=== PATIENT | female | born 1985 | race Caucasian/White ===

== ENCOUNTER 2017-08-29 07:56 | Observation (INO) | payer MEDICAID, SELFPAY | END 2017-08-31 09:05 | disposition home or self-care (01) | PROVIDERS: Admitting Provider Obstetrics & Gynecology; Family Provider Internal Medicine Adolescent Medicine; Visit Provider Obstetrics & Gynecology | DX: R10.2 Pelvic and perineal pain (principal); N83.11 Corpus luteum cyst of right ovary | CPT/HCPCS: 58720; 44950; 36415; 81001; 85014; 85018; 87086; 96372; 96375; G0378; J0131; J1956; J2405 ==

== ENCOUNTER 2017-12-28 20:42 | Emergency (ER) | payer MEDICAID, SELFPAY ==
[2017-12-28 20:49] VITALS: BP 128/85; PULSE 91; RESP 20; TEMP 37.1; O2SAT 99; BMI 26.7
--- NOTE | 2017-12-28 20:56 | HMH.EDUTC ---
[facility] [place] Clinical Impression: Strep throat Disposition: Home, Self-Care Condition on Discharge: Good Instructions: Strep Throat, DI for Strep Throat Additional Instructions: * Monitor Temp. Tylenol and/or Ibuprofen as needed. ER if fever is no less than 101 despite alternating Tylenol and Ibuprofen * Encourage fluids, water, Gatorade, powerade, pedialyte if /toddler/or child * Warm salt water gargles for throat irritation *Warm fluids *Sore throat lozenges *Sleep elevated *humidifier or vaporizer Lots of rest Increase fluids, water, Gatorade, powerade *Bromfed may cause drowsiness. Know how it effect you or your child. Before driving, caring for small children or sending your child to school *Your throat swab was sent to lab for culture. Those results area typically sent to your primary care physician. Be sure to follow up in 2-3 days if no improvement so they can review those results and treat if necessary If you dont have primary care I recommend you get one, but in the mean time you will have to return to a walk in clinic Follow up IMMEDIATELY for new or worsening of symptoms OR no noticeable improvement over the next 48-72 hours. 911 immediately for any life threatening symptoms such as chest pain or difficulty breathing Prescriptions: Brompheniramine/Pseudoephed/Dm [Bromfed DM Cough Syrup 5mL] 10 ml PO Q4HP PRN #350 ml PRN Reason: Cough Azithromycin [Z-Terry 250mg Tab] 250 mg PO UD DOSE PK #6 tab predniSONE [Prednisone 5mg Tab Dose-Pack] 5 mg PO UD DOSE PK #21 pack Time of Disposition: 21:09 Medical Decision Making - Medical Records Medical records reviewed: Yes: I reviewed the patient's medical records. - Gage Inquiry Pt receiving controlled substance: No Gage was queried for this patient: No Vital Signs: 12/28/17 20:49 Temperature 98.8 F Temperature Source Temporal Artery Scan Pulse Rate [Right Brachial] 91 H Respiratory Rate 20 Blood Pressure [Right Arm] 128/85 Blood Pressure Mean [Right Arm] 99 Blood Pressure Source [Right Arm] Automatic Cuff Blood Pressure Position [Right Arm] Sitting 02 Sat by Pulse Oximetry 99 Oxygen Delivery Method Room Air - Lab Data Lab results reviewed: Yes: I reviewed the patient's lab results. [facility] [place] HPI - General Stated complaint: Ear Pain Time Seen by Provider: 12/28/17 20:50 Mode of Arrival: Family Vehicle Source of Information: Patient Limitations: No Limitations Description of Symptoms (Recalled from Triage Doc. by RN): C/O BILATERAL EAR PAIN X 2 DAYS HEENT Symptoms (Recalled from RN notes): Yes Resp Symptoms (Recalled from RN notes): No Skin Symptoms (Recalled from RN notes): No MS Symptoms (Recalled from RN notes): No Functional Status (Recalled from RN notes): N/A - History of Present Illness Provider Complaint: Patient states that she has been having pain in both ears for 2 days States that pain has continued to get worse States that it hurts when she swallows and feels like she is having pressure in her ears and in her sinuses States that earlier today she felt a little dizzy when she stood up quickly and felt like the room was moving - Related Data Home Medications Medication Instructions Recorded Confirmed albuterol sulfate HFA 90 2 puff INHALATION Q6H 10/09/17 mcg/actuation aerosol inhaler Previous Rx's Medication Instructions Recorded estradiol 2 mg tablet 2 mg PO DAILY #30 tab 11/11/17 Azithromycin [Z-Terry 250mg Tab] 250 mg PO UD DOSE PK #6 tab 12/28/17 Brompheniramine/Pseudoephed/Dm 10 ml PO Q4HP PRN #350 ml 12/28/17 [Bromfed DM Cough Syrup 5mL] predniSONE [Prednisone 5mg Tab 5 mg PO UD DOSE PK #21 pack 12/28/17 Dose-Pack] Allergies Allergy/AdvReac Type Severity Reaction Status Date / Time aspirin [ASPIRIN] Allergy Unknown Verified 12/28/17 21:07 codeine [CODEINE] Allergy Unknown Verified 12/28/17 21:07 orange juice Allergy Unknown DIARRHEA Unverified 10/09/17 14:30 [From ORANGE JUICE (FOOD/
--- NOTE | 2017-12-28 21:03 | ED_ITS ---
[facility] – [place] Disposition Clinical Impression: Strep throat Disposition: Home, Self-Care Condition on Discharge: Good Instructions: Strep Throat, DI for Strep Throat Additional Instructions: * Monitor Temp. Tylenol and/or Ibuprofen as needed. ER if fever is no less than 101 despite alternating Tylenol and Ibuprofen * Encourage fluids, water, Gatorade, powerade, pedialyte if infant/toddler/or child * Warm salt water gargles for throat irritation *Warm fluids *Sore throat lozenges *Sleep elevated *humidifier or vaporizer Lots of rest Increase fluids, water, Gatorade, powerade *Bromfed may cause drowsiness. Know how it effect you or your child. Before driving, caring for small children or sending your child to school *Your throat swab was sent to lab for culture. Those results area typically sent to your primary care physician. Be sure to follow up in 2-3 days if no improvement so they can review those results and treat if necessary If you don? t have primary care I recommend you get one, but in the mean time you will have to return to a walk in clinic Follow up IMMEDIATELY for new or worsening of symptoms OR no noticeable improvement over the next 48-72 hours. 911 immediately for any life threatening symptoms such as chest pain or difficulty breathing Prescriptions: Brompheniramine/Pseudoephed/Dm [Bromfed DM Cough Syrup 5mL] 10 ml PO Q4HP PRN # 350 ml PRN Reason: Cough Azithromycin [Z-Terry 250mg Tab] 250 mg PO UD DOSE PK #6 tab predniSONE [Prednisone 5mg Tab Dose-Pack] 5 mg PO UD DOSE PK #21 pack Time of Disposition: 21:09 Medical Decision Making - Medical Records Medical records reviewed: Yes: I reviewed the patient's medical records. - Gage Inquiry Pt receiving controlled substance: No Gage was queried for this patient: No Vital Signs: 12/28/17 20:49 Temperature 98.8 F Temperature Source Temporal Artery Scan Pulse Rate [Right Brachial] 91 H Respiratory Rate 20 Blood Pressure [Right Arm] 128/85 Blood Pressure Mean [Right Arm] 99 Blood Pressure Source [Right Arm] Automatic Cuff Blood Pressure Position [Right Arm] Sitting 02 Sat by Pulse Oximetry 99 Oxygen Delivery Method Room Air - Lab Data Lab results reviewed: Yes: I reviewed the patient's lab results. [facility] [place] HPI - General Stated complaint: Ear Pain Time Seen by Provider: 12/28/17 20:50 Mode of Arrival: Family Vehicle Source of Information: Patient Limitations: No Limitations Description of Symptoms (Recalled from Triage Doc. by RN): C/O BILATERAL EAR PAIN X 2 DAYS HEENT Symptoms (Recalled from RN notes): Yes Resp Symptoms (Recalled from RN notes): No Skin Symptoms (Recalled from RN notes): No MS Symptoms (Recalled from RN notes): No Functional Status (Recalled from RN notes): N/A - History of Present Illness Provider Complaint: Patient states that she has been having pain in both ears for 2 days States that pain has continued to get worse States that it hurts when she swallows and feels like she is having pressure in her ears and in her sinuses States that earlier today she felt a little dizzy when she stood up quickly and felt like the room was moving - Related Data Home Medications Medication Instructions Recorded Confirmed albuterol sulfate HFA 90 2 puff INHALATION Q6H 10/09/17 mcg/actuation aerosol inhaler Previous Rx's Medication Instructions Recorded estradiol 2 mg tablet 2 mg PO DAILY #30 tab 0
[2017-12-28 21:13] LABS: UTC Strep Screen (Rapid) Positive (Negative)
[2017-12-28 21:18] VITALS: BP 128/85; PULSE 91; RESP 20; TEMP 37.1; O2SAT 99
== END 2017-12-28 21:19 | disposition home or self-care (01) ==
PROVIDERS: Emergency Provider Nurse Practitioner; Family Provider Internal Medicine Adolescent Medicine
DX: J02.0 Streptococcal pharyngitis (principal); J45.909 Unspecified asthma, uncomplicated; F17.210 Nicotine dependence, cigarettes, uncomplicated; Z79.82 Long term (current) use of aspirin; Z88.0 Allergy status to penicillin; Z88.6 Allergy status to analgesic agent
CPT/HCPCS: 87880; 99201

== ENCOUNTER 2023-12-17 10:37 | Emergency (ER) | payer OTHER, SELFPAY ==
[2023-12-17 10:45] VITALS: BP 118/82; PULSE 82; RESP 18; TEMP 36.8; O2SAT 95; BMI 36.1
--- NOTE | 2023-12-17 10:59 | ED_ITS ---
Discharge Plan Disposition Patient Disposition: Home, Self-Care Condition: Good Prescriptions Prescriptions: New clarithromycin 500 mg tablet 500 mg PO BID 7 Days Qty: 14 0RF No Action albuterol sulfate [Ventolin HFA] 90 mcg/actuation HFA aerosol inhaler 2 puff INHALATION Q6H Referrals Follow up/Referrals: Provider,Referral, [Primary Care Provider] - See instructions Activity Restrictions/Add. Instructions Additional Instructions/Restrictions: *Monitor Temp, Over the counter Motrin or Tylenol as directed/as needed Tylenol every 4 hours and Motrin every 6 hours (as long as your family doctor has told you that you can take it) for fever or pain. and straight to ER if unable to lower temp less than 101.0 after medication given *Warm salt water gargles may help to soothe the throat *Throat Lozenges? *Warm fluids like tea with honey may help to soothe the throat? *Sleep elevated *Humidifier/Vaporizer Your throat swab was sent for culture. Those results are typically sent to your primary care. Be sure to follow up in 2-3 days with your family doctor/primary care physician if no improvement so they can review those result and treat if necessary. If you don?t have a primary care doctor, I recommend you get one but in the mean time, you will have to return to a walk in clinic Follow up IMMEDIATELY for new or worsening symptoms or no Noticeable improvement over the next 48-72 hours. 911 for difficulty breathing or swallowing Clinical Impressions Clinical Impression: Pharyngitis Instructions Patient Instructions: Sore Throat, Middle Ear Infection Discharge ED Provider: Candie Wu [facility] General Stated complaint: sore throat, ear pain Mode of Arrival: Ambulatory Source of Information: Patient Limitations: No Limitations Time Seen by Provider: 12/17/23 10:59 Description of Symptoms (Recalled from Triage Doc. by RN): Pt's symptoms are sore throat, and bilateral ear pain. HEENT Symptoms (Recalled from RN notes): Yes Resp Symptoms (Recalled from RN notes): No Skin Symptoms (Recalled from RN notes): No MS Symptoms (Recalled from RN notes): No Functional Status (Recalled from RN notes): n/a History of Present Illness Provider Complaint: Patient states that she has been having sore throat and bilateral ear pain States her son has strep throat and she thinks she may have it now too Related Data Home Medications Medication Instructions Recorded Confirmed albuterol sulfate 90 mcg/actuation 2 puff inhalation Q6H 10/09/17 aerosol inhaler (Ventolin HFA) Previous Rx's Medication Instructions Recorded estradiol 2 mg tablet 2 mg PO DAILY #30 tabs 11/11/17 clarithromycin 500 mg tablet 500 mg PO BID 7 days #14 tabs 12/17/23 Allergies Allergy/AdvReac Type Severity Reaction Status Date / Time aspirin [ASPIRIN] Allergy Unknown Verified 12/17/23 10:58 codeine [CODEINE] Allergy Unknown Verified 12/17/23 10:58 orange juice Allergy Unknown DIARRHEA Verified 12/17/23 10:58 [From ORANGE JUICE (FOOD/DRUG)] Penicillins [PENICILLINS] Allergy Unknown SOB/CHEST Verified 12/17/23 10:58 TIGHTNESS propoxyphene [PROPOXYPHENE] Allergy Unknown Verified 12/17/23 10:58 venom-honey bee Allergy Unknown Verified 12/17/23 10:58 [BEE VENOM (HONEY BEE)] acetaminophen [From Percocet] Allergy Verified 12/17/23 10:58 oxycodone [From Percocet] Allergy Verified 12/17/23 10:58 ibuprofen [IBUPROFEN] AdvReac Unknown UPSET Verified 12/17/23 10:58 STOMACH promethazine [PROMETHAZINE] AdvReac Unknown MAKES HER Verified 12/17/23 10:58 THROW UP From RED DYE (FOOD/DRUG) Allergy Severe S-SWELLS-OR Uncoded 10/09/17 14:30 AL/THROAT GREEN JELLO Allergy Intermediate Uncoded 10/09/17 14:30 From ORANGE JUICE (FOOD/DRUG) Allergy Unknown DIARRHEA Uncoded 10/09/17 14:30 Worker's Comp Is this a Worker's Comp case?: No [facility] Disclaimer: The information contained in this section may have been updated after the patient was seen, as this information can be updated by other users. Social History Smoking Status: Current every day smoker tobacco type: cigarettes alcohol intake: never substance use type: denies use current occupational status: unemployed Travel in the last 8 weeks: None ROS Obtained: Yes All systems reviewed & no additional complaints except as documented and Yes Systems reviewed as appropriate & no additional complaints except as documented ENT Ears, Nose, Mouth, and Throat: Reports system reviewed and no additional complaints, except as documented, Reports as per HPI, Reports otalgia and Repo rts sore throat Cardiovascular Cardiovascular: Reports system reviewed and no additional complaints, except as documented and Reports as per HPI Respiratory Respiratory: Reports system reviewed and no additional complaints, except as documented and Reports as per HPI Gastrointestinal Gastrointestingal: Reports system reviewed and no additional complaints, except as documented and as per HPI Physical Exam General General appearance: alert and in no apparent distress ENT ENT exam: Present mucous membranes moist Expanded ENT Exam TM/Canal exam: Left TM: erythema and loss of landmarks Throat exam: Present tonsillar erythema Respiratory Respiratory exam: Present normal lung sounds bilaterally; Absent respiratory distress or wheezes Cardiovascular Cardiovascular exam: Present regular rate, normal rhythm and normal heart sounds Neurological Exam Neurological exam: Present alert, oriented X3 and normal gait Medical Decision Making Gage Inquiry Pt receiving controlled substance: No Gage was queried for this patient: No Vital Signs: 12/17/23 10:45 Temperature 98.3 F Temperature Source Oral Pulse Rate [Right Radial] 82 Respiratory Rate 18 Blood Pressure [Right Arm] 118/82 Blood Pressure Mean [Right Arm] 94 Blood Pressure Source [Right Arm] Automatic Cuff Blood Pressure Position [Right Arm] Sitting 02 Sat by Pulse Oximetry 95 Oxygen Delivery Method Room Air Lab Data Lab results reviewed: Yes I reviewed the patient's lab results. Medical Decision Narrative: Patient states that she has alot of allergies but has taken azithromycin in the past without complications or reactions Patient medication discussed with pharmacy will do clarithromycin due to allergy to red dye
[2023-12-17 11:14] LABS: UTC Strep Screen (Rapid) Negative (Negative)
[2023-12-17 11:26] VITALS: BP 118/82; PULSE 82; RESP 18; TEMP 36.8; O2SAT 95
== END 2023-12-17 11:26 | disposition home or self-care (01) ==
PROVIDERS: Emergency Provider Nurse Practitioner
DX: J02.9 Acute pharyngitis, unspecified (principal); H92.03 Otalgia, bilateral; F17.210 Nicotine dependence, cigarettes, uncomplicated; Z20.818 Contact with and (suspected) exposure to other bacterial communicable diseases
CPT/HCPCS: 87880; 99204; 99212; G0463

== ENCOUNTER 2024-01-02 11:46 | Emergency (ER) | payer OTHER, SELFPAY ==
[2024-01-02] VITALS (7 sets, daily range): BP systolic 121–152; BP diastolic 74–97; PULSE 82–108; RESP 17–18; TEMP 36.7–36.8; O2SAT 97–99; BMI 36.1
--- NOTE | 2024-01-02 12:05 | CT_ITS ---
FINAL REPORT CLINICAL HISTORY: severe LLQ pain and guarding COMPARISON: None FINDINGS: CT OF THE ABDOMEN AND PELVIS WITH CONTRAST Axial CT images of the abdomen and pelvis were obtained after the administration of IV contrast. Coronal reformatted images were also obtained and reviewed.This study was performed with techniques to keep radiation doses as low as reasonably achievable (ALARA). Individualized dose reduction techniques using automated exposure control or adjustment of mA and/or kV according to the patient''s size were employed. Abdomen: There is mild bibasilar atelectasis. The heart is normal in size. There is a less than 1 cm probable hepatic cyst. Post cholecystectomy. The spleen is unremarkable. No adrenal mass is present. The pancreas has an unremarkable appearance. The kidneys are normal, without evidence of mass or hydronephrosis. The aorta is normal in caliber. There is no free fluid or adenopathy. No mass or abnormal fluid collection is seen. Pelvis: The appendix is not seen. There is a large amount of retained stool in the rectum with distention up to 7.3 cm transverse worrisome for constipation/fecal impaction. There is mild wall thickening of the descending colon. Mild colitis is not excluded. The urinary bladder is unremarkable. There are postoperative changes from hysterectomy. There is no evidence of mass or adenopathy. There is no evidence of bowel obstruction. IMPRESSION: Findings worrisome for constipation/fecal impaction. Possible mild colitis. Reviewed, Interpreted and Dictated by Abdifatah Sewell III, MD Transcribed by Willow Pearson Authenticated and [facility]
--- NOTE | 2024-01-02 12:17 | HMH.EDGENADL ---
Discharge Plan Disposition Patient Disposition: Home, Self-Care Prescriptions Prescriptions: New epinephrine 0.3 mg/0.3 mL auto-injector 0.3 mg IM Q10M PRN (Reason: anaphylaxis) Qty: 2 0RF Rx Instructions: for 2 doses prednisone 50 mg tablet 50 mg PO DAILY 4 Days Qty: 4 0RF No Action albuterol sulfate [Ventolin HFA] 90 mcg/actuation HFA aerosol inhaler 2 puff INHALATION Q6H azithromycin [Zithromax] 250 mg tablet 250 mg PO UD DOSE PK Qty: 6 0RF Rx Instructions: Take two (2) tablets today, then one (1) tablet days #2 thru #5 Referrals Follow up/Referrals: Provider,Referral, [Primary Care Provider] - See instructions Activity Restrictions/Add. Instructions Additional Instructions/Restrictions: At this time it was felt you are safe to be discharged home. If new or worsening symptoms please do not hesitate to return the emergency department. If symptoms persist please follow-up with your family doctor as you are able for your constipation. Please take your medications as prescribed. Clinical Impressions Clinical Impression: Constipation, Abdominal pain, Adverse effect of contrast media, Angioedema Discharge ED Provider: Alphonse Kebede General Adult HPI <Mendel Villasenor MD - Last Filed: 01/02/24 15:15> General Chief complaint: PAIN Stated complaint: constipatated, abd pain Time Seen by Provider: 01/02/24 11:53 Mode of Arrival: Ambulatory Source of Information: Patient Limitations: No Limitations Description of Symptoms (Recalled from ER Triage Doc. by RN): Patient states she has been constipated, last bowel movement 4 days ago. She has tried miralax and xlax with no relief. Patient states she has stomach cramps across lower belly. Denies other symptoms History of Present Illness HPI narrative: 38-year-old female history of section x 2, chronic presenting with abdominal pain. Patient states that she started having abdominal pain this this morning, / after being constipated the last couple of days. Has not had a bowel movement in about 4 days. States last bowel movement she had was normal for her, which is hard and formed. Having difficulty urinating and says that it hurts when she tries to urinate, feels full. No blood in her stool or urine. No flank tenderness. Pain is left lower quadrant, suprapubic and does not radiate. Moderate to severe in intensity. Made worse with application of pressure. No fevers or chills, abnormal vaginal discharge or bleeding, or any other concerns. Please note that above description of symptoms, in this electronic medical record under categorization of recalled from ER triage doctor by RN are reflective of an initial nursing assessment, however, is not reflective of my full history and physical exam that was personally taken and clarified. Consequentially, this preceding description of symptoms, which may include the patient's categorized chief complaint in the EMR, do not reflect my personal clinical impression, and the ultimate description of history of present illness and patient stated complaints should be deferred to this section of the note. Unless stated otherwise or congruent with this section of the note, additional signs, symptoms, or incongruence should be interpreted as inaccurate with my clinical impression. Related Data Home Medications Medication Instructions Recorded Confirmed albuterol sulfate 90 mcg/actuation 2 puff inhalation Q6H 10/09/17 aerosol inhaler (Ventolin HFA) Previous Rx's Medication Instructions Recorded estradiol 2 mg tablet 2 mg PO DAILY #30 tabs 11/11/17 azithromycin 250 mg tablet 250 mg PO UD DOSE PK #6 tabs 12/18/23 (Zithromax) epinephrine 0.3 mg/0.3 mL 0.3 mg (0.3 mL) IM Q10M PRN 01/02/24 injection, auto-injector anaphylaxis #2 ea prednisone 50 mg tablet 50 mg PO DAILY 4 days #4 tabs 01/02/24 Allergies Allergy/AdvReac Type Severity Reaction Status Date / Time aspirin [ASPIRIN] Allergy Unknown Verified 12/17/23 10:58 codeine [CODEINE] Allergy Unknown Verified 12/17/23 10:58 orange juice Allergy Unknown DIARRHEA Verified 12/17/23 10:58 [From ORANGE JUICE (FOOD/DRUG)] Penicillins [PENICILLINS] Allergy Unknown SOB/CHEST Verified 12/17/23 10:58 TIGHTNESS propoxyphene [PROPOXYPHENE] Allergy Unknown Verified 12/17/23 10:58 venom-honey bee Allergy Unknown Verified 12/17/23 10:58 [BEE VENOM (HONEY BEE)] acetaminophen [From Percocet] Allergy Verified 12/17/23 10:58 oxycodone [From Percocet] Allergy Verified 12/17/23 10:58 ibuprofen [IBUPROFEN] AdvReac Unknown UPSET Verified 12/17/23 10:58 STOMACH promethazine [PROMETHAZINE] AdvReac Unknown MAKES HER Verified 12/17/23 10:58 THROW UP From RED DYE (FOOD/DRUG) Allergy Severe S-SWELLS-OR Uncoded 10/09/17 14:30 AL/THROAT GREEN JELLO Allergy Intermediate Uncoded 10/09/17 14:30 From ORANGE JUICE (FOOD/DRUG) Allergy Unknown DIARRHEA Uncoded 10/09/17 14:30 PFSH <Mendel Villasenor MD - Last Filed: 01/02/24 15:15> [facility] Disclaimer: The information contained in this section may have been updated after the patient was seen, as this information can be updated by other users. Social History (Updated 12/17/23 @ 11:22 by Candie Wu APRN) Smoking Status: Former smoker tobacco type: cigarettes alcohol intake: never substance use type: denies use current occupational status: unemployed Travel in the last 8 weeks: None <Mendel Villasenor MD - Last Filed: 01/02/24 15:15> ROS Obtained: Yes All systems reviewed & no additional complaints except as documented Physical Exam <Mendel Villasenor MD - Last Filed: 01/02/24 15:15> General General appearance: alert and in no apparent distress Head Head exam: atraumatic and normocephalic Eye Eye exam: Present normal appearance, PERRL and EOMI ENT ENT exam: Present mucous membranes moist Neck Neck exam: Present normal inspection, full ROM and trachea midline Respiratory Respiratory exam: Absent respiratory distress, wheezes, stridor, accessory muscle use or prolonged expiratory phase Cardiovascular Cardiovascular exam: Present normal rhythm Abdominal Exam Abdominal exam: Present soft and tenderness; Absent distention, guarding, rebound or rigidity Abdominal tenderness: Present LLQ and suprapubic Extremities Exam Extremities exam: Absent edema Neurological Exam Neurological exam: Present alert, oriented X3, CN II-XII intact and normal gait; Absent motor sensory deficit Skin Skin exam: Present warm and dry; Absent diaphoresis or erythema Medical Decision Making <Mendel Villasenor MD - Last Filed: 01/02/24 15:15> Medical Records Medical records reviewed: Yes I reviewed the patient's medical records. Gage Inquiry Pt receiving controlled substance: No Gage was queried for this patient: No Vital Signs: 04/12/24 11:47 01/02/24 12:15 01/02/24 12:30 Temperature 98.1 F Temperature Source Oral Pulse Rate 90 95 H Pulse Rate [Right] 99 H Respiratory Rate 18 Blood Pressure 121/87 129/82 Blood Pressure [Right Arm] 152/83 H Blood Pressure Mean [Right Arm] 106 Blood Pressure Source [Right Arm] Automatic Cuff 02 Sat by Pulse Oximetry 98 97 97 Oxygen Delivery Method Room Air 01/02/24 13:05 01/02/24 13:31 01/02/24 15:19 Temperature Temperature Source Pulse Rate 87 108 H 96 H Pulse Rate [Right] Respiratory Rate 18 Blood Pressure 143/74 H 130/84 130/97 H Blood Pressure [Right Arm] Blood Pressure Mean [Right Arm] Blood Pressure Source [Right Arm] 02 Sat by Pulse Oximetry 97 99 98 Oxygen Delivery Method Room Air Lab Data Lab Results 01/02/24 12:11: WBC 8.8, RBC 4.67, Hgb 13.9, Hct 42.3, MCV 90.4, MCH 29.7, MCHC 32.8, RDW 13.2, Plt Count 426 H, MPV 7.2 L, Neut % (Auto) 76.4, Lymph % (Auto) 18.3, [place] % (Auto) 4.0, Eos % (Auto) 0.7, Baso % (Auto) 0.6, Neut # (Auto) 6.8, Lymph # (Auto) 1.6, [place] # (Auto) 0.4, Eos # (Auto) 0.1, Baso # (Auto) 0.1, Sodium 138, Potassium 4.0, Chloride 106, Carbon Dioxide 26, Anion Gap 10.0, BUN 12, Creatinine 0.70, Estimated Creat Clear 168, Estimated GFR 93, Est GFR ( Amer) 113, Glucose 128 H, Lactate 1.5, Calcium 9.6, Total Bilirubin 0.7, AST 28, ALT 22, Alkaline Phosphatase 123, Total Protein 7.6, Albumin 4.2, Globulin 3.4 H, Albumin/Globulin Ratio 1.2, HCG, Quant < 2 01/02/24 12:22: Urine Color Yellow, Urine Appearance Clear, Urine pH 6.5, Ur Specific [place] 1.015, Urine Protein Negative, Urine Glucose (UA) Negative, Urine Ketones Negative, Urine Blood Negative, Urine Nitrate Negative, Urine Bilirubin Negative, Urine Urobilinogen 0.2, Ur Leukocyte Esterase Negative, Urine RBC None, Urine WBC None, Ur Squamous Epith Cells 3-5, Urine Bacteria Trace 01/02/24 12:11 01/02/24 12:11 Orders (Tests/Meds): ED MEDICATIONS Discontinued Medications Generic Name Dose Route Start Last Admin Trade Name Holgerq PRN Reason Stop Dose Admin Acetaminophen 1,000 mg 01/02/24 12:04 01/02/24 12:20 Acetaminophen 1,000mg/100ml Vial IV 01/02/24 12:05 1,000 mg ONCE ONE Administration Diphenhydramine HCl 50 mg 01/02/24 13:23 01/02/24 13:24 Diphenhydramine 50mg/Ml Vial IV 01/02/24 13:24 50 mg ONCE ONE Administration Epinephrine HCl 0.3 mg 01/02/24 15:14 01/02/24 15:28 Epinephrine 1 Mg/Ml Ampul SQ 01/02/24 15:15 0.3 mg ONCE ONE Administration Iopamidol 75 ml 01/02/24 13:19 01/02/24 13:22 Iopamidol-370 (76%);100ml Bottle IV 01/02/24 13:20 75 ml ONCE ONE Administration Ketorolac Tromethamine 15 mg 01/02/24 12:04 01/02/24 12:21 Ketorolac 30mg/Ml Vial IV 01/02/24 12:05 15 mg ONCE ONE Administration Magnesium Citrate 10 oz 01/02/24 11:53 01/02/24 12:18 Magnesium Citrate 10oz Bottle PO 01/02/24 11:54 Not Given ONCE ONE Magnesium Citrate 10 oz 01/02/24 13:41 01/02/24 13:52 Magnesium Citrate 10oz Bottle PO 01/02/24 13:42 10 oz ONCE ONE Administration Methylprednisolone Sodium Succinate 125 mg 01/02/24 15:16 01/02/24 15:28 Methylprednisolone Sod Succ 125mg Vial IV 01/02/24 15:17 125 mg ONCE ONE Administration Mineral Oil 133 ml 01/02/24 11:53 01/02/24 12:18 Mineral Oil Enema 133ml RC 01/02/24 11:54 Not Given ONCE ONE Mineral Oil 133 ml 01/02/24 13:40 01/02/24 13:51 Mineral Oil Enema 133ml RC 01/02/24 13:41 133 ml ONCE ONE Administration Sodium Chloride 10 ml 01/02/24 13:19 01/02/24 13:21 Sodium Chloride 0.9% 10ml Syr (Rad Only) IV 01/02/24 13:20 10 ml ONCE ONE Administration ORDERS Category Date Time Status CT abdomen pelvis w con Stat Cat Scan 01/02/24 12:05 Completed CBC w/Auto Diff [Complete Blood Count Auto Diff] Stat Lab 01/02/24 12:11 Completed CMP [Comprehensive Metabolic Panel] Stat Lab 01/02/24 12:11 Completed HCG,Quantitative Stat Lab 01/02/24 12:11 Completed Lactic Acid Stat Lab 01/02/24 12:11 Completed UA [Urinalysis and Microscopic] Stat Lab 01/02/24 12:22 Completed Medical Decision Narrative: 38-year-old female history of section x 2, chronic presenting with abdominal pain. Patient states that she started having abdominal pain this this morning, 01/01 after being constipated the last couple of days. Has not had a bowel movement in about 4 days. States last bowel movement she had was normal for her, which is hard and formed. Having difficulty urinating and says that it hurts when she tries to urinate, feels full. No blood in her stool or urine. No flank tenderness. Pain is left lower quadrant, suprapubic and does not radiate. Moderate to severe in intensity. Made worse with application of pressure. No fevers or chills, abnormal vaginal discharge or bleeding, or any other concerns. History obtained with patient. On arrival, patient hemodynamically stable, mildly hypertensive, nontachycardic. Abdomen is soft, but moderately tender in left lower quadrant suprapubic with involuntary guarding. No flank tenderness. No overlying skin changes. Patient is tearful. Differential includes PUD, gastritis, enteritis, gastroenteritis, pancreatitis, SBO, colitis, diverticulitis, nephrolithiasis, UTI, , cholecystitis, choledocholithiasis, appendicitis, hepatitis, torsion, aortic pathology, mesenteric ischemia among others Patient was given Toradol, acetaminophen IV for symptomatic management and correction of underlying abnormalities. Workup independently interpreted and significant for nonactionable CBC or chemistry. negative, urinalysis without concern for UTI. CT abdomen pelvis with severe constipation. With rectal stool ball. See radiology read for full review of final results. Patient was brought initial enema, minimal bowel movement. Also given magnesium citrate. Patient was given another enema. Patient began having rash on her face and itching, she was given 50 mg IV Benadryl. Patient shortly thereafter had large-volume bowel movement and improvement in symptoms. On reevaluation just before going to discharge, patient states that she is having difficulty swallowing. Patient does have periorbital urticaria. She was given Solu-Medrol 125 mg, 0.3 mg IM epinephrine. Prior to reevaluation, care handed off to oncoming physician. <Alphonse Kebede MD - Last Filed: 01/02/24 18:05> Vital Signs: 01/02/24 11:47 01/02/24 12:15 01/02/24 12:30 Temperature 98.1 F Temperature Source Oral Pulse Rate 90 95 H Pulse Rate [Right] 99 H Respiratory Rate 18 Blood Pressure 121/87 129/82 Blood Pressure [Right Arm] 152/83 H Blood Pressure Mean [Right Arm] 106 Blood Pressure Source [Right Arm] Automatic Cuff 02 Sat by Pulse Oximetry 98 97 97 Oxygen Delivery Method Room Air 01/02/24 13:05 01/02/24 13:31 01/02/24 15:19 Temperature Temperature Source Pulse Rate 87 108 H 96 H Pulse Rate [Right] Respiratory Rate 18 Blood Pressure 143/74 H 130/84 130/97 H Blood Pressure [Right Arm] Blood Pressure Mean [Right Arm] Blood Pressure Source [Right Arm] 02 Sat by Pulse Oximetry 97 99 98 Oxygen Delivery Method Room Air Lab Data Lab Results 01/02/24 12:11: WBC 8.8, RBC 4.67, Hgb 13.9, Hct 42.3, MCV 90.4, MCH 29.7, MCHC 32.8, RDW 13.2, Plt Count 426 H, MPV 7.2 L, Neut % (Auto) 76.4, Lymph % (Auto) 18.3, [place] % (Auto) 4.0, Eos % (Auto) 0.7, Baso % (Auto) 0.6, Neut # (Auto) 6.8, Lymph # (Auto) 1.6, [place] # (Auto) 0.4, Eos # (Auto) 0.1, Baso # (Auto) 0.1, Sodium 138, Potassium 4.0, Chloride 106, Carbon Dioxide 26, Anion Gap 10.0, BUN 12, Creatinine 0.70, Estimated Creat Clear 168, Estimated GFR 93, Est GFR ( Amer) 113, Glucose 128 H, Lactate 1.5, Calcium 9.6, Total Bilirubin 0.7, AST 28, ALT 22, Alkaline Phosphatase 123, Total Protein 7.6, Albumin 4.2, Globulin 3.4 H, Albumin/Globulin Ratio 1.2, HCG, Quant < 2 01/02/24 12:22: Urine Color Yellow, Urine Appearance Clear, Urine pH 6.5, Ur Specific [place] 1.015, Urine Protein Negative, Urine Glucose (UA) Negative, Urine Ketones Negative, Urine Blood Negative, Urine Nitrate Negative, Urine Bilirubin Negative, Urine Urobilinogen 0.2, Ur Leukocyte Esterase Negative, Urine RBC None, Urine WBC None, Ur Squamous Epith Cells 3-5, Urine Bacteria Trace Orders (Tests/Meds): ED MEDICATIONS Discontinued Medications Generic Name Dose Route Start Last Admin Trade Name An PRN Reason Stop Dose Admin Acetaminophen 1,000 mg 01/02/24 12:04 01/02/24 12:20 Acetaminophen 1,000mg/100ml Vial IV 01/02/24 12:05 1,000 mg ONCE ONE Administration Diphenhydramine HCl 50 mg 01/02/24 13:23 01/02/24 13:24 Diphenhydramine 50mg/Ml Vial IV 01/02/24 13:24 50 mg ONCE ONE Administration Epinephrine HCl 0.3 mg 01/02/24 15:14 01/02/24 15:28 Epinephrine 1 Mg/Ml Ampul SQ 01/02/24 15:15 0.3 mg ONCE ONE Administration Iopamidol 75 ml 01/02/24 13:19 01/02/24 13:22 Iopamidol-370 (76%);100ml Bottle IV 01/02/24 13:20 75 ml ONCE ONE Administration Ketorolac Tromethamine 15 mg 01/02/24 12:04 01/02/24 12:21 Ketorolac 30mg/Ml Vial IV 01/02/24 12:05 15 mg ONCE ONE Administration Magnesium Citrate 10 oz 01/02/24 11:53 01/02/24 12:18 Magnesium Citrate 10oz Bottle PO 01/02/24 11:54 Not Given ONCE ONE Magnesium Citrate 10 oz 01/02/24 13:41 01/02/24 13:52 Magnesium Citrate 10oz Bottle PO 01/02/24 13:42 10 oz ONCE ONE Administration Methylprednisolone Sodium Succinate 125 mg 01/02/24 15:16 01/02/24 15:28 Methylprednisolone Sod Succ 125mg Vial IV 01/02/24 15:17 125 mg ONCE ONE Administration Mineral Oil 133 ml 01/02/24 11:53 01/02/24 12:18 Mineral Oil Enema 133ml RC 01/02/24 11:54 Not Given ONCE ONE Mineral Oil 133 ml 01/02/24 13:40 01/02/24 13:51 Mineral Oil Enema 133ml RC 01/02/24 13:41 133 ml ONCE ONE Administration Sodium Chloride 10 ml 01/02/24 13:19 01/02/24 13:21 Sodium Chloride 0.9% 10ml Syr (Rad Only) IV 01/02/24 13:20 10 ml ONCE ONE Administration ORDERS Category Date Time Status CT abdomen pelvis w con Stat Cat Scan 01/02/24 12:05 Completed CBC w/Auto Diff [Complete Blood Count Auto Diff] Stat Lab 01/02/24 12:11 Completed CMP [Comprehensive Metabolic Panel] Stat Lab 01/02/24 12:11 Completed HCG,Quantitative Stat Lab 01/02/24 12:11 Completed Lactic Acid Stat Lab 01/02/24 12:11 Completed UA [Urinalysis and Microscopic] Stat Lab 01/02/24 12:22 Completed Medical Decision Narrative: 38-year-old female history of section x 2, chronic presenting with abdominal pain. Patient states that she started having abdominal pain this this morning, 01/01 after being constipated the last couple of days. Has not had a bowel movement in about 4 days. States last bowel movement she had was normal for her, which is hard and formed. Having difficulty urinating and says that it hurts when she tries to urinate, feels full. No blood in her stool or urine. No flank tenderness. Pain is left lower quadrant, suprapubic and does not radiate. Moderate to severe in intensity. Made worse with application of pressure. No fevers or chills, abnormal vaginal discharge or bleeding, or any other concerns. History obtained with patient. On arrival, patient hemodynamically stable, mildly hypertensive, nontachycardic. Abdomen is soft, but moderately tender in left lower quadrant suprapubic with involuntary guarding. No flank tenderness. No overlying skin changes. Patient is tearful. Differential includes PUD, gastritis, enteritis, gastroenteritis, pancreatitis, SBO, colitis, diverticulitis, nephrolithiasis, UTI, , cholecystitis, choledocholithiasis, appendicitis, hepatitis, torsion, aortic pathology, mesenteric ischemia among others Patient was given Toradol, acetaminophen IV for symptomatic management and correction of underlying abnormalities. Workup independently interpreted and significant for nonactionable CBC or chemistry. negative, urinalysis without concern for UTI. CT abdomen pelvis with severe constipation. With rectal stool ball. See radiology read for full review of final results. Patient was brought initial enema, minimal bowel movement. Also given magnesium citrate. Patient was given another enema. Patient began having rash on her face and itching, she was given 50 mg IV Benadryl. Patient shortly thereafter had large-volume bowel movement and improvement in symptoms. On reevaluation just before going to discharge, patient states that she is having difficulty swallowing. Patient does have periorbital urticaria. She was given Solu-Medrol 125 mg, 0.3 mg IM epinephrine. Prior to reevaluation, care handed off to oncoming physician. Alphonse Kebede: Upon assumption of care patient was hemodynamically stable, has angioedema status post contrast administration. Patient with multiple hours of observation in the emergency department and had resolving swelling the entire time of her stay. Given this patient is appropriate for discharge at this time and will will be discharged with a course of steroids, she will be discharged with an EpiPen given her bee allergy that she says she does not have an EpiPen for. Patient was given multiple return precautions and verbalized understanding. Critical Care <Mendel Villasenor MD - Last Filed: 01/02/24 15:15> Critical Care Time Critical Care Time: No
[2024-01-02] MEDS: ACETAMINOPHEN 1,000MG/100ML VIAL 1000 MG IV (12:20)
[2024-01-02] MEDS: KETOROLAC 30MG/ML VIAL 15 MG IV (12:21)
[2024-01-02 12:27] LABS: Basophils # 0.1 K/mm3 (0-0.2); Basophils % 0.6 % (0.1-2.0); Eosinophils # 0.1 K/mm3 (0.0-0.4); Eosinophils % 0.7 % (0.1-12.0); Hematocrit 42.3 % (37.0-47.0); Hemoglobin 13.9 g/dL (12.2-16.2); Lymphocytes # 1.6 K/mm3 (0.7-4.5); Lymphocytes % 18.3 % (10-50); Mean Corpuscular HGB Conc 32.8 g/dL (31.8-35.4); Mean Corpuscular Hemoglobin 29.7 pg (27.0-31.2); Mean Corpuscular Volume 90.4 fl (81-99); Mean Platelet Volume 7.2 fl (7.4-10.4); Monocytes # 0.4 K/mm3 (0.1-1.0); Neutrophils # 6.8 K/mm3 (1.8-7.8); Neutrophils % 76.4 % (37.0-80.0); Platelet Count 426 K/mm3 (142-424); Red Blood Count 4.67 M/mm3 (4.20-5.40); Red Cell Distribution Width 13.2 % (11.5-17.5); White Blood Count 8.8 K/mm3 (4.8-10.8)
[2024-01-02 12:36] LABS: Microscopic, Urine URINE MICROSCOPIC (MICROSCOPIC)
[2024-01-02 12:37] LABS: Chloride 106 mmol/L (98-107); Sodium 138 mmol/L (136-145)
[2024-01-02 12:38] LABS: Appearance,Urine CLEAR (Clear); Bilirubin,Urine Negative (Negative); Blood, Urine Negative (Negative); Color,Urine YELLOW (Yellow); Glucose,Urine (UA) Negative (Negative); Ketones,Urine Negative (Negative); Leukocyte Esterase,Urine Negative (Negative); Nitrate,Urine Negative (Negative); PH,Urine 6.5 (5.0-8.5); Protein,Urine Negative (Negative); Specific Gravity, Urine 1.015 (1.005-1.030); Urobilinogen,Urine 0.2 EU/dl (0.2)
[2024-01-02 12:39] LABS: Alanine Aminotransferase 22 U/L (12-78); Alkaline Phosphatase 123 U/L (38-126); Aspartate Amino Transferase 28 U/L (14-36); Bilirubin,Total 0.7 mg/dl (0.2-1.3); Blood Urea Nitrogen 12 mg/dl (7-17); Creatinine Clearance Estimated 168 mL/min (50-200); Estimated Glomerular Filt Rate 93 ml/min (>60); GFR (African American) 113 ML/MIN (>60)
[2024-01-02 12:40] LABS: Albumin Level 4.2 g/dl (3.5-5.0); Albumin/Globulin Ratio 1.2 (1.1-1.8); Calcium 9.6 mg/dl (8.4-10.2); Carbon Dioxide 26 mmol/L (22.0-30.0); Globulin 3.4 g/dL (1.3-3.2); Glucose 128 mg/dl (74-100); Total Protein,Serum 7.6 g/dl (6.3-8.2)
[2024-01-02 12:41] LABS: Lactic Acid 1.5 mmol/L (0.7-2.1)
[2024-01-02 12:50] LABS: Bacteria,Urine Trace /lpf
[2024-01-02 12:58] LABS: HCG,Quantitative < 2 mIU/ml (0-5.42)
--- NOTE | 2024-01-02 13:00 | PC.NURSE ---
assisted patient to Restroom at this time.
[2024-01-02] MEDS: SODIUM CHLORIDE 0.9% 10ML SYR (RAD ONLY) 10 ML IV (13:21)
[2024-01-02] MEDS: IOPAMIDOL-370 (76%);100ML BOTTLE 75 ML IV (13:22)
[2024-01-02] MEDS: diphenhydrAMINE 50MG/ML VIAL 50 MG IV (13:24)
[2024-01-02] MEDS: MINERAL OIL ENEMA 133ML 133 ML RC (13:51)
[2024-01-02] MEDS: MAGNESIUM CITRATE 10OZ BOTTLE 10 OZ PO (13:52)
--- NOTE | 2024-01-02 15:00 | PC.NURSE ---
Patients enema was successful patient reports relief at this time.
[2024-01-02] MEDS: METHYLPREDNISOLONE SOD SUCC 125MG VIAL 125 MG IV (15:28)
[2024-01-02] MEDS: EPINEPHrine 1 MG/ML AMPUL 0.299999999999999989 MG SQ (15:28)
--- NOTE | 2024-01-02 17:27 | PC.NURSE ---
Rounded on patient. No needs at this time.
== END 2024-01-02 18:12 | disposition home or self-care (01) ==
PROVIDERS: Emergency Medicine; Emergency Provider Emergency Medicine
DX: R10.32 Left lower quadrant pain (principal); K59.00 Constipation, unspecified; T50.8X5A Adverse effect of diagnostic agents, initial encounter; T78.3XXA Angioneurotic edema, initial encounter; Z87.891 Personal history of nicotine dependence
CPT/HCPCS: 74177; 80053; 81001; 83605; 84702; 85025; 96374; 96375; 99285; J0131; Q9967

== ENCOUNTER 2024-01-03 13:53 | Emergency (ER) | payer OTHER, SELFPAY ==
[2024-01-03 13:55] VITALS: BP 137/94; PULSE 93; RESP 18; TEMP 36.6; O2SAT 99; BMI 36.1
--- NOTE | 2024-01-03 14:18 | ECG_ITS ---
APPROVED REPORT Exam: Resting ECG HR:88 bpm ECG Measurements Heart Rate 88 AXES PA 153 P 59 QRSd 79 QRS 21 QT 350 T 40 QTc 395 Conclusion SINUS RHYTHM Electronically signed by : EMMA JACOBSON, 01/03/2024 15:28:19
--- NOTE | 2024-01-03 14:23 | ED_ITS ---
Discharge Plan Disposition Patient Disposition: Home, Self-Care Chief Complaint: Skin/Abscess/Foreign Body Prescriptions Prescriptions: No Action albuterol sulfate [Ventolin HFA] 90 mcg/actuation HFA aerosol inhaler 2 puff INHALATION Q6H epinephrine 0.3 mg/0.3 mL auto-injector 0.3 mg IM Q10M PRN (Reason: anaphylaxis) Qty: 2 0RF Rx Instructions: for 2 doses prednisone 50 mg tablet 50 mg PO DAILY 4 Days Qty: 4 0RF azithromycin [Zithromax] 250 mg tablet 250 mg PO UD DOSE PK Qty: 6 0RF Rx Instructions: Take two (2) tablets today, then one (1) tablet days #2 thru #5 Referrals Follow up/Referrals: Provider,Referral, MD [Primary Care Provider] - See instructions Clinical Impressions Clinical Impression: Facial burning Instructions Patient Instructions: DI for Skin Abscess Discharge ED Provider: Mendel Villasenor General Adult HPI General Chief complaint: Skin/Abscess/Foreign Body Stated complaint: diff. to breathe, rash on arm Time Seen by Provider: 01/03/24 13:56 Mode of Arrival: Ambulatory Source of Information: Patient Limitations: No Limitations Description of Symptoms (Recalled from ER Triage Doc. by RN): c/o small rash on bilateral ellbow area and chin around lip area, and soa that started this morning when she woke up. Her face feels hot. States the contrast that she had here yesterday has caused this reaction. History of Present Illness HPI narrative: 38-year-old female no relevant medical history presenting with multiple complaints. Patient was seen in the emergency department yesterday for abdominal pain, had abnormal reaction to contrast with periorbital urticaria. States she went home, felt better, today, she took allergy medication. States that she is feeling lightheaded, dizzy, feels that she has a rash on her arms. She also is most concerned because her face feels hot. No difficulty breathing, cough, chest pain, palpitations, nausea, vomiting, diarrhea, shortness of breath, or any other concerns. Please note that above description of symptoms, in this electronic medical record under categorization of recalled from ER triage doctor by RN are reflective of an initial nursing assessment, however, is not reflective of my full history and physical exam that was personally taken and clarified. Consequentially, this preceding description of symptoms, which may include the patient's categorized chief complaint in the EMR, do not reflect my personal clinical impression, and the ultimate description of history of present illness and patient stated complaints should be deferred to this section of the note. Unless stated otherwise or congruent with this section of the note, additional signs, symptoms, or incongruence should be interpreted as inaccurate with my clinical impression. Related Data Home Medications Medication Instructions Recorded Confirmed albuterol sulfate 90 mcg/actuation 2 puff inhalation Q6H 10/09/17 aerosol inhaler (Ventolin HFA) Previous Rx's Medication Instructions Recorded estradiol 2 mg tablet 2 mg PO DAILY #30 tabs 11/11/17 azithromycin 250 mg tablet 250 mg PO UD DOSE PK #6 tabs 12/18/23 (Zithromax) epinephrine 0.3 mg/0.3 mL 0.3 mg (0.3 mL) IM Q10M PRN 01/02/24 injection, auto-injector anaphylaxis #2 ea prednisone 50 mg tablet 50 mg PO DAILY 4 days #4 tabs 01/02/24 Allergies Allergy/AdvReac Type Severity Reaction Status Date / Time Iodinated Contrast Media Allergy Severe angioedema Verified 01/03/24 14:23 aspirin [ASPIRIN] Allergy Unknown Verified 12/17/23 10:58 codeine [CODEINE] Allergy Unknown Verified 12/17/23 10:58 orange juice Allergy Unknown DIARRHEA Verified 12/17/23 10:58 [From ORANGE JUICE (FOOD/DRUG)] Penicillins [PENICILLINS] Allergy Unknown SOB/CHEST Verified 12/17/23 10:58 TIGHTNESS propoxyphene [PROPOXYPHENE] Allergy Unknown Verified 12/17/23 10:58 venom-honey bee Allergy Unknown Verified 12/17/23 10:58 [BEE VENOM (HONEY BEE)] acetaminophen [From Percocet] Allergy Verified 12/17/23 10:58 oxycodone [From Percocet] Allergy Verified 12/17/23 10:58 ibuprofen [IBUPROFEN] AdvReac Unknown UPSET Verified 12/17/23 10:58 STOMACH promethazine [PROMETHAZINE] AdvReac Unknown MAKES HER Verified 12/17/23 10:58 THROW UP From RED DYE (FOOD/DRUG) Allergy Severe S-SWELLS-OR Uncoded 10/09/17 14:30 AL/THROAT GREEN JELLO Allergy Intermediate Uncoded 10/09/17 14:30 From ORANGE JUICE (FOOD/DRUG) Allergy Unknown DIARRHEA Uncoded 10/09/17 14:30 [facility] Disclaimer: The information contained in this section may have been updated after the patient was seen, as this information can be updated by other users. Social History (Updated 12/17/23 @ 11:22 by Candie Wu APRN) Smoking Status: Never smoker alcohol intake: never substance use type: denies use current occupational status: unemployed Travel in the last 8 weeks: None ROS Obtained: Yes All systems reviewed & no additional complaints except as documented Physical Exam General General appearance: alert and in no apparent distress Head Head exam: atraumatic and normocephalic Eye Eye exam: Present normal appearance, PERRL and EOMI ENT ENT exam: Present normal oropharynx, mucous membranes moist and other (No evidence of tonsillitis, exudate, pharyngeal erythema, uvular deviation, palatal swelling, trismus, dental abscess, angioedema, or other abnormal zelalem pharyngeal findings) Neck Neck exam: Present normal inspection, full ROM and trachea midline Respiratory Respiratory exam: Present normal lung sounds bilaterally; Absent respiratory distress, wheezes, stridor, accessory muscle use or prolonged expiratory phase Cardiovascular Cardiovascular exam: Present regular rate and normal rhythm Abdominal Exam Abdominal exam: Present soft; Absent distention, tenderness, guarding, rebound or rigidity Extremities Exam Extremities exam: Absent edema Neurological Exam Neurological exam: Present alert, oriented X3, CN II-XII intact and normal gait; Absent motor sensory deficit Skin Skin exam: Present warm and dry; Absent diaphoresis or erythema Medical Decision Making Medical Records Medical records reviewed: Yes I reviewed the patient's medical records. Gage Inquiry Pt receiving controlled substance: No Gage was queried for this patient: No Vital Signs: 01/03/24 13:55 Temperature 97.9 F Temperature Source Oral Pulse Rate [Left Radial] 93 H Respiratory Rate 18 Blood Pressure [Right Arm] 137/94 H Blood Pressure Mean [Right Arm] 108 Blood Pressure Source [Right Arm] Automatic Cuff Blood Pressure Position [Right Arm] Sitting 02 Sat by Pulse Oximetry 99 Oxygen Delivery Method Room Air Orders (Tests/Meds): ED MEDICATIONS Discontinued Medications Generic Name Dose Route Start Last Admin Trade Name Freq PRN Reason Stop Dose Admin Dexamethasone 10 mg 01/03/24 14:12 01/03/24 14:26 Dexamethasone 4mg Tablet PO 01/03/24 14:13 10 mg ONCE ONE Administration Ondansetron HCl 4 mg 01/03/24 14:12 01/03/24 14:26 Ondansetron 4mg Odt SL 01/03/24 14:13 4 mg ONCE ONE Administration Medical Decision Narrative: 38-year-old female no relevant medical history presenting with multiple complaints. Patient was seen in the emergency department yesterday for abdominal pain, had abnormal reaction to contrast with periorbital urticaria. States she went home, felt better, today, she took allergy medication. States that she is feeling lightheaded, dizzy, feels that she has a rash on her arms. She also is most concerned because her face feels hot. No difficulty breathing, cough, chest pain, palpitations, nausea, vomiting, diarrhea, shortness of breath, or any other concerns. History obtained with patient. On arrival, hemodynamically stable, alert, oriented, afebrile, normotensive, nontachycardic, saturating appropriately on room air. Lungs are clear to auscultation. No evidence of tonsillitis, exudate, pharyngeal erythema, uvular deviation, palatal swelling, trismus, dental abscess, angioedema, or other abnormal zelalem pharyngeal findings. No facial rash. Very well-appearing overall. EKG sinus rhythm 88 beats a minute no ST or T wave changes concerning for acute ischemia. No arrhythmia, intervals within normal limits. Patient given oral meds, reassurance was given. Because patient at baseline without signs or symptoms of clinical decompensation, deemed appropriate for discharge. Results were relayed to patient who voiced understanding and were agreeable to outpatient management and follow up. I discussed my clinical impression with patient and answered all questions. At this time, the evidence for any other entities in the differential is insufficient to warrant any further testing or ED observation. This was explained as well. Advisory was given that persistent or worsening symptoms require further evaluation. I confirmed the understanding of this discussion. Critical Care Critical Care Time Critical Care Time: No
[2024-01-03] MEDS: ONDANSETRON 4MG ODT 4 MG SL (14:26)
[2024-01-03] MEDS: DEXAMETHASONE 4MG TABLET 10 MG PO (14:26)
[2024-01-03 15:12] VITALS: BP 135/88; PULSE 86; RESP 16; TEMP 36.6; O2SAT 100
== END 2024-01-03 15:13 | disposition home or self-care (01) ==
PROVIDERS: Emergency Provider Emergency Medicine
DX: R20.8 Other disturbances of skin sensation (principal); R42 Dizziness and giddiness
CPT/HCPCS: 93005; 99283

== ENCOUNTER 2024-03-10 17:25 | Emergency (ER) | payer OTHER, SELFPAY ==
[2024-03-10 17:27] VITALS: BP 143/95; PULSE 103; RESP 18; TEMP 36.6; O2SAT 94; BMI 36.6
--- NOTE | 2024-03-10 17:30 | ED_ITS ---
<Statement entered by Justin Alcazar MD - 03/10/24 23:33> I was consulted by the JACKIE, and we discussed the complexity of the problems being addressed. I approved the treatment and management plan for this patient's care in the emergency department, thus performing a substantive portion of the medical decision making. Justin Alcazar MD, AURELIA, FACEP Discharge Plan Disposition Patient Disposition: Home, Self-Care Condition: Good Prescriptions Prescriptions: No Action albuterol sulfate [Ventolin HFA] 90 mcg/actuation HFA aerosol inhaler 2 puff INHALATION Q6H epinephrine 0.3 mg/0.3 mL auto-injector 0.3 mg IM Q10M PRN (Reason: anaphylaxis) Qty: 2 0RF Rx Instructions: for 2 doses prednisone 50 mg tablet 50 mg PO DAILY 4 Days Qty: 4 0RF azithromycin [Zithromax] 250 mg tablet 250 mg PO UD DOSE PK Qty: 6 0RF Rx Instructions: Take two (2) tablets today, then one (1) tablet days #2 thru #5 Referrals Follow up/Referrals: Provider,MD Juan [Primary Care Provider] - See instructions Moni Maya DPM [Staff Physician] - See instructions Activity Restrictions/Add. Instructions Additional Instructions/Restrictions: You can take Tylenol alternating with Motrin every 4 hours as needed for constitutional symptoms such as pain and swelling. I have referred you to podiatry for ongoing follow-up if you wish. Please call to make an appointment. Turn to ER for any worsening signs or symptoms. Clinical Impressions Clinical Impression: Contusion of foot Instructions Patient Instructions: DI for Contusion Discharge ED Provider: Justin Alcazar General Adult HPI General Chief complaint: Extremity Injury, Lower Stated complaint: left foot poss.break,AO 03-10-24 ten pound wt drop Time Seen by Provider: 03/10/24 17:30 History of Present Illness HPI narrative: Patient presents for evaluation after dropping a 10 pound weight plate on her left foot. Patient does have a history of multiple operations in the last 6 months on the same foot. Patient states that it hurts to walk hurts to move but denies any numbness or tingling. Patient states that hurts to bear weight. Related Data Home Medications Medication Instructions Recorded Confirmed albuterol sulfate 90 mcg/actuation 2 puff inhalation Q6H 10/09/17 aerosol inhaler (Ventolin HFA) Previous Rx's Medication Instructions Recorded estradiol 2 mg tablet 2 mg PO DAILY #30 tabs 11/11/17 azithromycin 250 mg tablet 250 mg PO UD DOSE PK #6 tabs 12/18/23 (Zithromax) epinephrine 0.3 mg/0.3 mL 0.3 mg (0.3 mL) IM Q10M PRN 01/02/24 injection, auto-injector anaphylaxis #2 ea prednisone 50 mg tablet 50 mg PO DAILY 4 days #4 tabs 01/02/24 Allergies Allergy/AdvReac Type Severity Reaction Status Date / Time Iodinated Contrast Media Allergy Severe angioedema Verified 01/03/24 14:23 aspirin [ASPIRIN] Allergy Unknown Verified 12/17/23 10:58 codeine [CODEINE] Allergy Unknown Verified 12/17/23 10:58 orange juice Allergy Unknown DIARRHEA Verified 12/17/23 10:58 [From ORANGE JUICE (FOOD/DRUG)] Penicillins [PENICILLINS] Allergy Unknown SOB/CHEST Verified 12/17/23 10:58 TIGHTNESS propoxyphene [PROPOXYPHENE] Allergy Unknown Verified 12/17/23 10:58 venom-honey bee Allergy Unknown Verified 12/17/23 10:58 [BEE VENOM (HONEY BEE)] acetaminophen [From Percocet] Allergy Verified 12/17/23 10:58 oxycodone [From Percocet] Allergy Verified 12/17/23 10:58 ibuprofen [IBUPROFEN] AdvReac Unknown UPSET Verified 12/17/23 10:58 STOMACH promethazine [PROMETHAZINE] AdvReac Unknown MAKES HER Verified 12/17/23 10:58 THROW UP From RED DYE (FOOD/DRUG) Allergy Severe S-SWELLS-OR Uncoded 10/09/17 14:30 AL/THROAT GREEN JELLO Allergy Intermediate Uncoded 10/09/17 14:30 From ORANGE JUICE (FOOD/DRUG) Allergy Unknown DIARRHEA Uncoded 10/09/17 14:30 [facility] Disclaimer: The information contained in this section may have been updated after the patient was seen, as this information can be updated by other users. Social History (Updated 12/17/23 @ 11:22 by Candie Wu APRN) Smoking Status: Former smoker tobacco type: cigarettes alcohol intake: never substance use type: denies use current occupational status: unemployed Travel in the last 8 weeks: None ROS Obtained: Yes Systems reviewed as appropriate & no additional complaints except as documented Physical Exam General General appearance: alert and in no apparent distress Respiratory Respiratory exam: Present normal lung sounds bilaterally Cardiovascular Cardiovascular exam: Present regular rate and normal rhythm Neurological Exam Neurological exam: Present alert and oriented X3 Other Other exam information: Left foot is exquisitely tender to palpation however so his ankle so is tib-fib however there is no palpable bony deformity and there is no visible trauma of any kind including contusions or abrasions. There is no asymmetry. Patient is neurovascular intact distally. Medical Decision Making Medical Records Medical records reviewed: Yes I reviewed the patient's medical records. Gage Inquiry Pt receiving controlled substance: No Vital Signs: 03/10/24 17:27 03/10/24 18:00 Temperature 98 F Temperature Source Oral Pulse Rate 91 H Pulse Rate [Right] 103 H Respiratory Rate 18 Blood Pressure 133/96 H Blood Pressure [Right Arm] 143/95 H Blood Pressure Mean [Right Arm] 111 02 Sat by Pulse Oximetry 94 L 97 Oxygen Delivery Method Room Air Room Air Orders (Tests/Meds): ED MEDICATIONS Discontinued Medications Generic Name Dose Route Start Last Admin Trade Name Freq PRN Reason Stop Dose Admin Ketorolac Tromethamine 60 mg 03/10/24 17:36 03/10/24 18:15 Ketorolac 60mg/2ml Vial IM 03/10/24 17:37 60 mg ONCE ONE Administration ORDERS Category Date Time Status Ankle XR - Left minimum 3 Views [XR ankle LT min 3V] Exams 03/10/24 17:34 Completed Stat Foot XR left minimum 3 views [XR foot LT min 3V] Stat Exams 03/10/24 17:34 Completed Tibia/fibula XR left 2 views [XR tibia fibula LT 2V] Exams 03/10/24 17:34 Completed Stat Medical Decision Narrative: In summary patient is a 38-year-old female who presents to the emergency department for evaluation of dropping weight on her foot. Patient is hemodynamically stable and afebrile on arrival. Physical exam shows pain on palpation in both the bridge of the foot the ankle and the tib-fib however there is no visible trauma of any kind including contusions abrasions tattoo emmy from the weight striking her foot and no bony deformity either visually or palpably. Patient is neurovascular intact distally. Differential diagnosis includes contusion versus fracture . Initial workup will be conducted with plain film x- rays. Initial interventions include Toradol Tylenol. Initial workup reviewed by me and her plain film x-rays show no acute fracture.. Upon repeat evaluation had acceptable improvement in her pain level.. Given this patient is appropriate for discharge. I offered her referral to Dr. Maya of podiatry. Critical Care Critical Care Time Critical Care Time: No
--- NOTE | 2024-03-10 17:34 | XR_ITS ---
PROCEDURE INFORMATION: Exam: XR Left Tibia and Fibula Exam date and time: 03/10/2024 5:32 PM Age: 38 years old Clinical indication: Injury or trauma; Other: Dropped weight on foot; Blunt trauma; Lower leg; Left; Additional info: Dropped a weight on her foot, previous surgery TECHNIQUE: Imaging protocol: Radiologic exam of the left tibia and fibula. Views: 2 views. COMPARISON: CR Ankle L 03/10/2024 5:31 PM FINDINGS: Bones/joints: See Soft tissues finding. Soft tissues: Mild soft tissue swelling without acute osseous abnormality. IMPRESSION: Mild soft tissue swelling without acute osseous abnormality.
--- NOTE | 2024-03-10 17:34 | XR_ITS ---
PROCEDURE INFORMATION: Exam: XR Left Ankle Exam date and time: 03/10/2024 5:31 PM Age: 38 years old Clinical indication: Injury or trauma; Other: Dropped weight on foot; Blunt trauma; Ankle; Left; Additional info: Dropped a weight on her foot, previous surgery TECHNIQUE: Imaging protocol: Radiologic exam of the left ankle. Views: 3 or more views. COMPARISON: CR Foot L 03/10/2024 5:29 PM FINDINGS: Bones/joints: See Soft tissues finding. Soft tissues: Mild soft tissue swelling without acute osseous abnormality. IMPRESSION: Mild soft tissue swelling without acute osseous abnormality.
--- NOTE | 2024-03-10 17:34 | XR_ITS ---
PROCEDURE INFORMATION: Exam: XR Left Foot Exam date and time: 03/10/2024 5:29 PM Age: 38 years old Clinical indication: Injury or trauma; Other: Dropped weight on foot; Blunt trauma; Left; Additional info: Dropped a weight on her foot, previous surgery TECHNIQUE: Imaging protocol: Radiologic exam of the left foot. Views: 3 or more views. COMPARISON: No relevant prior studies available. FINDINGS: Bones/joints: See Soft tissues finding. Soft tissues: Mild soft tissue swelling without acute osseous abnormality. IMPRESSION: Mild soft tissue swelling without acute osseous abnormality.
[2024-03-10 18:00] VITALS: BP 133/96; PULSE 91; O2SAT 97
[2024-03-10] MEDS: KETOROLAC 60MG/2ML VIAL 60 MG IM (18:15)
--- NOTE | 2024-03-10 18:39 | PC.NURSE ---
PT sitting up in wheelchair. No needs voiced. Family at [facility]
[2024-03-10 18:56] VITALS: BP 133/96; PULSE 91; RESP 16; TEMP 36.7; O2SAT 97
[2024-03-10 19:00] VITALS: BP 128/70; PULSE 80; RESP 20; TEMP 36.7; O2SAT 97
== END 2024-03-10 19:00 | disposition home or self-care (01) ==
PROVIDERS: Emergency Provider Student in an Organized Health Care Education/Training Program
DX: S90.32XA Contusion of left foot, initial encounter (principal); W20.8XXA Other cause of strike by thrown, projected or falling object, initial encounter
CPT/HCPCS: 73590; 73610; 73630; 96372; 99283; J1885

== ENCOUNTER 2024-03-24 21:30 | Outpatient (CLI) | payer OTHER, MEDICAID, SELFPAY ==
[2024-03-24 21:55] LABS: Basophils # 0.1 K/mm3 (0-0.2); Basophils % 0.9 % (0.1-2.0); Eosinophils # 0.3 K/mm3 (0.0-0.4); Eosinophils % 3.4 % (0.1-12.0); Hematocrit 38.4 % (37.0-47.0); Hemoglobin 12.6 g/dL (12.2-16.2); Lymphocytes # 1.9 K/mm3 (0.7-4.5); Lymphocytes % 20.6 % (10-50); Mean Corpuscular HGB Conc 32.8 g/dL (31.8-35.4); Mean Corpuscular Hemoglobin 29.8 pg (27.0-31.2); Mean Corpuscular Volume 90.8 fl (81-99); Mean Platelet Volume 7.9 fl (7.4-10.4); Monocytes # 0.4 K/mm3 (0.1-1.0); Monocytes % 4.5 % (1.7-9.3); Neutrophils # 6.7 K/mm3 (1.8-7.8); Neutrophils % 70.6 % (37.0-80.0); Platelet Count 447 K/mm3 (142-424); Red Blood Count 4.23 M/mm3 (4.20-5.40); Red Cell Distribution Width 13.7 % (11.5-17.5); White Blood Count 9.5 K/mm3 (4.8-10.8)
[2024-03-24 22:12] LABS: Alanine Aminotransferase 18 U/L (12-78); Albumin Level 4.2 g/dl (3.5-5.0); Albumin/Globulin Ratio 1.4 (1.1-1.8); Alkaline Phosphatase 87 U/L (38-126); Anion Gap 13.2 mEq/L (5-15); Aspartate Amino Transferase 23 U/L (14-36); Bilirubin,Total 0.5 mg/dl (0.2-1.3); Blood Urea Nitrogen 14 mg/dl (7-17); Calcium 9.4 mg/dl (8.4-10.2); Carbon Dioxide 30 mmol/L (22.0-30.0); Chloride 103 mmol/L (98-107); Cholesterol 229 mg/dl (140-200); Estimated Glomerular Filt Rate 80 ml/min (>60); GFR (African American) 97 ML/MIN (>60); Globulin 3.1 g/dL (1.3-3.2); Glucose 113 mg/dl (74-100); HDL Cholesterol 57 mg/dl (40-60); Potassium 4.2 mmoL/L (3.5-5.1); Sodium 142 mmol/L (136-145); Total Protein,Serum 7.3 g/dl (6.3-8.2); Triglycerides 99 mg/dl (30-150); VLDL Cholesterol 20 mg/dL (0-40)
[2024-03-24 22:23] LABS: Direct LDL Cholesterol 127.89 mg/dL (100-129); Iron 88 ug/dL (37-170)
[2024-03-24 22:43] LABS: Thyroid Stimulating Hormone 0.51 uIU/mL (0.465-4.68)
[2024-03-24 23:19] LABS: Vitamin B12 225 pg/mL (239-931)
[2024-03-24 23:22] LABS: Folate 9.21 ng/mL
== END 2024-03-24 23:59 | disposition home or self-care (01) ==
LOC: LAB.DROPOF 21:31
PROVIDERS: PCP Nurse Practitioner Family; Visit Provider Nurse Practitioner Family
DX: R53.83 Other fatigue (principal); E66.9 Obesity, unspecified
CPT/HCPCS: 80050; 80053; 80061; 82306; 82607; 82746; 83540; 84443; 85025

== ENCOUNTER 2024-03-31 17:12 | Emergency (ER) | payer OTHER, SELFPAY ==
[2024-03-31 17:13] VITALS: BP 138/98; PULSE 89; RESP 20; TEMP 36.6; O2SAT 99; BMI 37.4
--- NOTE | 2024-03-31 17:16 | ED_ITS ---
Discharge Plan Disposition Patient Disposition: Home, Self-Care Condition: Good Prescriptions Prescriptions: No Action Anoro Ellipta 62.5-25 mcg/actuation blister with device inhalation Patient Comments: INHALE 1 PUFF BY MOUTH DAILY cetirizine 1 mg/mL solution PO Patient Comments: TAKE 2 TEASPOONFULS (10ML) BY MOUTH DAILY albuterol sulfate 2.5 mg /3 mL (0.083 %) solution for nebulization inhalation Patient Comments: USE 1 VIAL IN NEBULIZER AND INHALE BY MOUTH THREE TIMES DAILY NEEDED acetaminophen [Tylenol Extra Strength] 500 mg tablet 500 mg PO Q6H PRN albuterol sulfate [Ventolin HFA] 90 mcg/actuation HFA aerosol inhaler 2 puff INHALATION Q6H estradiol 2 mg tablet 2 mg PO DAILY Qty: 30 12RF nystatin 100,000 unit/gram powder 1 applic topical BID Qty: 30 0RF famotidine 20 mg tablet 20 mg PO DAILY Qty: 30 2RF polyethylene glycol 3350 [Miralax] 17 gram/dose powder 17 g PO DAILY Qty: 238 2RF epinephrine 0.3 mg/0.3 mL auto-injector 0.3 mg IM Q10M PRN (Reason: anaphylaxis) Qty: 2 0RF Rx Instructions: for 2 doses Referrals Follow up/Referrals: Jerel Quinones MD [Staff Physician] - See instructions John Arevalo APRN [Primary Care Provider] - See instructions Activity Restrictions/Add. Instructions Additional Instructions/Restrictions: Please call and make an appointment with pain management in the morning. Follow-up closely with your PCP. Please keep your orthopedic and podiatry appointments. Return to ER for any worsening signs or symptoms as needed Clinical Impressions Clinical Impression: Complex regional pain syndrome i of left lower limb Instructions Patient Instructions: Complex Regional Pain Syndrome Discharge ED Provider: Mendel Villasenor General Adult HPI <TREY Aleman - Last Filed: 03/31/24 18:49> General Chief complaint: Extremity Injury, Lower Stated complaint: LT knee pain Time Seen by Provider: 03/31/24 17:16 History of Present Illness HPI narrative: CompPatient presents for evaluation of left lower extremity pain. Patient has 6 left lower extremity history including reconstructive surgery of her left ankle dropping a 10 pound weight on her foot several weeks ago. Patient reports that she has had pain in her knee and her lower extremity for over a year. She has recently been seen by both podiatry and orthopedics, podiatry for her foot and ankle issues and orthopedics for her knee. Patient states that nothing is particularly new it just hurts with no new trauma. She has been in a walking boot for several weeks now and saw orthopedics yesterday. MRI has been ordered for both spots in her lower extremity but have yet to be completed reportedly. She denies chest pain fever chills hemoptysis hematochezia melena nausea vomiting diarrhea. Related Data Home Medications Medication Instructions Recorded Confirmed albuterol sulfate 90 mcg/actuation 2 puff inhalation Q6H 10/09/17 03/30/24 aerosol inhaler (Ventolin HFA) acetaminophen 500 mg tablet 500 mg PO Q6H PRN 03/16/24 03/30/24 (Tylenol Extra Strength) albuterol sulfate 2.5 mg/3 mL mg inhalation 03/16/24 03/30/24 (0.083 %) solution for nebulization cetirizine 1 mg/mL oral solution mg PO 03/16/24 03/30/24 umeclidinium 62.5 mcg-vilanterol inhalation 03/16/24 03/30/24 25 mcg/actuation powdr for inhalation (Anoro Ellipta) Previous Rx's Medication Instructions Recorded estradiol 2 mg tablet 2 mg PO DAILY #30 tabs 11/11/17 epinephrine 0.3 mg/0.3 mL 0.3 mg (0.3 mL) IM Q10M PRN 01/02/24 injection, auto-injector anaphylaxis #2 ea famotidine 20 mg tablet 20 mg PO DAILY #30 tabs 03/24/24 nystatin 100,000 unit/gram topical 1 applic topical BID #30 grams 03/24/24 powder polyethylene glycol 3350 17 17 g PO DAILY #238 grams 03/24/24 gram/dose oral powder (Miralax) Allergies Allergy/AdvReac Type Severity Reaction Status Date / Time Iodinated Contrast Media Allergy Severe angioedema Verified 03/30/24 10:51 aspirin [ASPIRIN] Allergy Unknown Verified 03/30/24 10:51 codeine [CODEINE] Allergy Unknown Verified 03/30/24 10:51 orange juice Allergy Unknown DIARRHEA Verified 03/30/24 10:51 [From ORANGE JUICE (FOOD/DRUG)] Penicillins [PENICILLINS] Allergy Unknown SOB/CHEST Verified 03/30/24 10:51 TIGHTNESS propoxyphene [PROPOXYPHENE] Allergy Unknown Verified 03/30/24 10:51 venom-honey bee Allergy Unknown Verified 03/30/24 10:51 [BEE VENOM (HONEY BEE)] acetaminophen [From Percocet] Allergy Verified 03/30/24 10:51 oxycodone [From Percocet] Allergy Verified 03/30/24 10:51 ibuprofen [IBUPROFEN] AdvReac Unknown UPSET Verified 03/30/24 10:51 STOMACH promethazine [PROMETHAZINE] AdvReac Unknown MAKES HER Verified 03/30/24 10:51 THROW UP From RED DYE (FOOD/DRUG) Allergy Severe S-SWELLS-OR Uncoded 03/30/24 10:51 AL/THROAT GREEN JELLO Allergy Intermediate Uncoded 03/30/24 10:51 From ORANGE JUICE (FOOD/DRUG) Allergy Unknown DIARRHEA Uncoded 03/30/24 10:51 PFSH <TREY Aleman - Last Filed: 03/31/24 18:49> PFS Disclaimer: The information contained in this section may have been updated after the patient was seen, as this information can be updated by other users. Medical History Encounter for cholecystectomy Gastritis Claustrophobia Pancreatitis COPD (chronic obstructive pulmonary disease) Asthma Surgical History Hx of hand surgery left Previous section 2 H/O oophorectomy History of partial hysterectomy History of ankle surgery 2 surgeries on left ankle Family History Mother Cancer lung Father Cancer brain, lung Grandmother , maternal Cancer colon Diabetes Grandfather , paternal Heart attack massive Social History Smoking Status: Former smoker tobacco type: cigarettes alcohol intake: never substance use type: denies use current occupational status: unemployed Travel in the last 8 weeks: None <TREY Aleman - Last Filed: 03/31/24 18:49> ROS Obtained: Yes Systems reviewed as appropriate & no additional complaints except as documented Physical Exam <TREY Aleman - Last Filed: 03/31/24 18:49> General General appearance: alert and in no apparent distress Respiratory Respiratory exam: Present normal lung sounds bilaterally Cardiovascular Cardiovascular exam: Present regular rate and normal rhythm Neurological Exam Neurological exam: Present alert and oriented X3 Other Other exam information: Arrives wearing an orthopedic boot to the left foot. After taking the breakdown there is no significant edema erythema redness induration noted. She does have tenderness to range of motion testing at her knee and palpation of the ankle laterally across the bridge of the foot however that is unchanged from previous exam I had with her back in February. No obvious bony deformity noted. He is neurovascular intact distally. Medical Decision Making <TREY Aleman - Last Filed: 03/31/24 18:49> Medical Records Medical records reviewed: Yes I reviewed the patient's medical records. Gage Inquiry Pt receiving controlled substance: No Vital Signs: 03/31/24 17:13 03/31/24 17:30 03/31/24 18:03 Temperature 97.9 F Temperature Source Oral Pulse Rate 86 78 Pulse Rate [Right Radial] 89 Respiratory Rate 20 Blood Pressure 137/94 H 125/85 Blood Pressure [Right Arm] 138/98 H Blood Pressure Mean 103 98 Blood Pressure Mean [Right Arm] 111 02 Sat by Pulse Oximetry 99 99 97 Oxygen Delivery Method Room Air 03/31/24 18:30 03/31/24 18:56 Temperature 98.0 F Temperature Source Pulse Rate 75 80 Pulse Rate [Right Radial] Respiratory Rate 18 Blood Pressure 123/89 123/89 Blood Pressure [Right Arm] Blood Pressure Mean 100 Blood Pressure Mean [Right Arm] 02 Sat by Pulse Oximetry 98 Oxygen Delivery Method Room Air Lab Data Lab results reviewed: Yes I reviewed the patient's lab results. Lab Results 03/31/24 18:19: WBC 7.5, RBC 3.58 L, Hgb 12.4, Hct 32.4 L, MCV 90.4, MCH 34.7 H, MCHC 38.3 H, RDW 13.9, Plt Count 330, MPV 7.1 L, Neut % (Auto) 57.2, Lymph % (Auto) 32.9, [place] % (Auto) 4.7, Eos % (Auto) 4.3, Baso % (Auto) 0.8, Neut # (Auto) 4.3, Lymph # (Auto) 2.5, [place] # (Auto) 0.4, Eos # (Auto) 0.3, Baso # (Auto) 0.1, Sodium 140, Potassium 4.0, Chloride 109 H, Carbon Dioxide 27, Anion Gap 8.0, BUN 18 H, Creatinine 0.70, Estimated Creat Clear 174, Estimated GFR 93, Est GFR ( Amer) 113, Glucose 102 H, Calcium 9.1, Magnesium 1.9, Total Creatine Kinase 30 03/31/24 18:19 03/31/24 18:19 Orders (Tests/Meds): ORDERS Category Date Time Status POCUS Point of Care (ER Only) Stat Exams 03/31/24 17:21 Completed BMP [Basic Metabolic Panel] Stat Lab 03/31/24 18:19 Completed CBC w/Auto Diff [Complete Blood Count Auto Diff] Stat Lab 03/31/24 18:19 Completed CK [Creatine Kinase] Stat Lab 03/31/24 18:19 Completed Magnesium Stat Lab 03/31/24 18:19 Completed Medical Decision Narrative: In summary patient is a 38-year-old female who presents to the emergency department for evaluation of left lower extremity pain. Patient is hemodynamically stable upon arrival, afebrile. Physical exam is unremarkable and nonfocal with exception of pain at the left knee and left ankle and foot which is unchanged from previous and exam is unrevealing for any acute process or bony deformity.. Differential diagnosis includes complex regional pain syndrome versus DVT versus electrolyte abnormality versus rhabdo etc. Initial workup will be conducted with hematologic labs and POCUS.. Initial interventions were considered however patient has multiple drug allergies/intolerances and is already on acetaminophen. Initial workup reviewed by me shows that there is no thrombus and hematologic labs are nonactionable. Given this patient is encouraged to continue follow-up with podiatry and orthopedics for the scheduled MRIs however we will make a referral to pain management for options and evaluation of her complex pain syndrome. <Mendel Villasenor MD - Last Filed: 03/31/24 19:20> Vital Signs: 03/31/24 17:13 03/31/24 17:30 03/31/24 18:03 Temperature 97.9 F Temperature Source Oral Pulse Rate 86 78 Pulse Rate [Right Radial] 89 Respiratory Rate 20 Blood Pressure 137/94 H 125/85 Blood Pressure [Right Arm] 138/98 H Blood Pressure Mean 103 98 Blood Pressure Mean [Right Arm] 111 02 Sat by Pulse Oximetry 99 99 97 Oxygen Delivery Method Room Air 03/31/24 18:30 03/31/24 18:56 Temperature 98.0 F Temperature Source Pulse Rate 75 80 Pulse Rate [Right Radial] Respiratory Rate 18 Blood Pressure 123/89 123/89 Blood Pressure [Right Arm] Blood Pressure Mean 100 Blood Pressure Mean [Right Arm] 02 Sat by Pulse Oximetry 98 Oxygen Delivery Method Room Air Lab Data Lab Results 03/31/24 18:19: WBC 7.5, RBC 3.58 L, Hgb 12.4, Hct 32.4 L, MCV 90.4, MCH 34.7 H, MCHC 38.3 H, RDW 13.9, Plt Count 330, MPV 7.1 L, Neut % (Auto) 57.2, Lymph % (Auto) 32.9, [place] % (Auto) 4.7, Eos % (Auto) 4.3, Baso % (Auto) 0.8, Neut # (Auto) 4.3, Lymph # (Auto) 2.5, [place] # (Auto) 0.4, Eos # (Auto) 0.3, Baso # (Auto) 0.1, Sodium 140, Potassium 4.0, Chloride 109 H, Carbon Dioxide 27, Anion Gap 8.0, BUN 18 H, Creatinine 0.70, Estimated Creat Clear 174, Estimated GFR 93, Est GFR ( Amer) 113, Glucose 102 H, Calcium 9.1, Magnesium 1.9, Total Creatine Kinase 30 Orders (Tests/Meds): ORDERS Category Date Time Status POCUS Point of Care (ER Only) Stat Exams 03/31/24 17:21 Completed BMP [Basic Metabolic Panel] Stat Lab 03/31/24 18:19 Completed CBC w/Auto Diff [Complete Blood Count Auto Diff] Stat Lab 03/31/24 18:19 Completed CK [Creatine Kinase] Stat Lab 03/31/24 18:19 Completed Magnesium Stat Lab 03/31/24 18:19 Completed Medical Decision Narrative: In summary patient is a 38-year-old female who presents to the emergency department for evaluation of left lower extremity pain. Patient is hemodynamically stable upon arrival, afebrile. Physical exam is unremarkable and nonfocal with exception of pain at the left knee and left ankle and foot which is unchanged from previous and exam is unrevealing for any acute process or bony deformity.. Differential diagnosis includes complex regional pain syndrome versus DVT versus electrolyte abnormality versus rhabdo etc. Initial workup will be conducted with hematologic labs and POCUS.. Initial interventions were considered however patient has multiple drug allergies/intolerances and is already on acetaminophen. Initial workup reviewed by me shows that there is no thrombus and hematologic labs are nonactionable. Given this patient is encouraged to continue follow-up with podiatry and orthopedics for the scheduled MRIs however we will make a referral to pain management for options and evaluation of her complex pain syndrome. I was consulted by the JACKIE, and we discussed the complexity of the problems being addressed. I approved the treatment and management plan for this patient?s care in the Emergency Department, thus performing a substantive portion of the medical decision making. Mendel Villasenor MD Procedures <Mendel Villasenor MD - Last Filed: 03/31/24 19:20> Limited Ultrasound Indication:: Limited DVT ultrasound Indication: Limited compression ultrasonography of the left lower extremity was performed to evaluate for non-compressibility of the deep veins in the patient. The ultrasound was performed with the following indications, as noted in the H&P: Left leg pain Identified structures: Left common femoral vein, femoral vein, popliteal vein were examined. Findings: Left CFV: Good compressibility Left FV good compressibility Left Popliteal vein: Good compressibility Impression: Negative left lower extremity DVT ultrasound Images were saved to permanent archive The study was technically adequate CPT: 52882-60-KT [id number] (complete bilateral study) This study was performed by me, and I personally interpreted all images/videos. Based on my clinical judgement, these images were adequate and did not necessitate further imaging. Critical Care <TREY Aleman - Last Filed: 03/31/24 18:49> Critical Care Time Critical Care Time: No
[2024-03-31 17:30] VITALS: BP 137/94; PULSE 86; O2SAT 99
[2024-03-31 18:03] VITALS: BP 125/85; PULSE 78; O2SAT 97
[2024-03-31 18:30] VITALS: BP 123/89; PULSE 75; O2SAT 98
[2024-03-31 18:31] LABS: Basophils # 0.1 K/mm3 (0-0.2); Basophils % 0.8 % (0.1-2.0); Eosinophils # 0.3 K/mm3 (0.0-0.4); Eosinophils % 4.3 % (0.1-12.0); Hematocrit 32.4 % (37.0-47.0); Hemoglobin 12.4 g/dL (12.2-16.2); Lymphocytes # 2.5 K/mm3 (0.7-4.5); Lymphocytes % 32.9 % (10-50); Mean Corpuscular HGB Conc 38.3 g/dL (31.8-35.4); Mean Corpuscular Hemoglobin 34.7 pg (27.0-31.2); Mean Corpuscular Volume 90.4 fl (81-99); Mean Platelet Volume 7.1 fl (7.4-10.4); Monocytes # 0.4 K/mm3 (0.1-1.0); Monocytes % 4.7 % (1.7-9.3); Neutrophils # 4.3 K/mm3 (1.8-7.8); Neutrophils % 57.2 % (37.0-80.0); Platelet Count 330 K/mm3 (142-424); Red Blood Count 3.58 M/mm3 (4.20-5.40); Red Cell Distribution Width 13.9 % (11.5-17.5); White Blood Count 7.5 K/mm3 (4.8-10.8)
[2024-03-31 18:37] LABS: Chloride 109 mmol/L (98-107)
[2024-03-31 18:38] LABS: Sodium 140 mmol/L (136-145)
[2024-03-31 18:40] LABS: Blood Urea Nitrogen 18 mg/dl (7-17); Creatinine Clearance Estimated 174 mL/min (50-200); Estimated Glomerular Filt Rate 93 ml/min (>60); GFR (African American) 113 ML/MIN (>60)
[2024-03-31 18:41] LABS: Calcium 9.1 mg/dl (8.4-10.2); Carbon Dioxide 27 mmol/L (22.0-30.0); Creatine Kinase 30 U/L (30-135); Glucose 102 mg/dl (74-100); Magnesium 1.9 mg/dl (1.6-2.3)
[2024-03-31 18:56] VITALS: BP 123/89; PULSE 80; RESP 18; TEMP 36.7; O2SAT 98
== END 2024-03-31 18:57 | disposition home or self-care (01) ==
PROVIDERS: Physician Assistant; Emergency Provider Emergency Medicine; PCP Nurse Practitioner Family
DX: G90.522 Complex regional pain syndrome I of left lower limb (principal); J44.9 Chronic obstructive pulmonary disease, unspecified; Z87.891 Personal history of nicotine dependence
CPT/HCPCS: 80048; 82550; 83735; 85025; 99284

== ENCOUNTER 2024-04-08 17:25 | Outpatient (CLI) | payer OTHER, SELFPAY ==
--- NOTE | 2024-04-08 17:26 | MR_ITS ---
FINAL REPORT TECHNIQUE: Multiplanar and multisequence imaging the right knee was obtained without contrast. CLINICAL HISTORY: Lt Knee Pain FINDINGS: Bones: There is no acute fracture or marrow edema. The joint space is preserved. There are no full thickness cartilage defects. Menisci: No meniscal tear is present. Ligaments: No cruciate or collateral ligament tear is present. Tendons/Muscles: The quadriceps and patellar tendons are within normal limits. The biceps femoris tendon and iliotibial tract are intact. The popliteus tendon is normal. Other: There is a small joint effusion. Remaining soft tissues are normal. IMPRESSION: Small joint effusion, otherwise unremarkable. Reviewed, Interpreted and Dictated by Janice Landa MD Transcribed by Karina Rubalcava Authenticated and [facility]
== END 2024-04-08 23:59 | disposition home or self-care (01) ==
LOC: RAD 17:26
PROVIDERS: PCP Nurse Practitioner Family; Visit Provider Physician Assistant Surgical
DX: M25.562 Pain in left knee (principal); G89.29 Other chronic pain
CPT/HCPCS: 73721

== ENCOUNTER 2024-04-14 15:35 | Outpatient (CLI) | payer OTHER, SELFPAY ==
--- NOTE | 2024-04-14 15:36 | MR_ITS ---
PROCEDURE INFORMATION: Exam: MR Left Lower Extremity Joint Without Contrast; Ankle Exam date and time: 04/14/2024 4:43 PM Age: 38 years old Clinical indication: Pain; Ankle; Left; Prior surgery; Surgery date: 6+ months; Surgery type: PT unsure what tendon repair; Additional info: Evaluate prior surgery site, lat ankle ligament TECHNIQUE: Imaging protocol: Magnetic resonance imaging of the left lower extremity without contrast. Exam focused on the ankle. COMPARISON: CR XR ANKLE LT MIN 3V 03/10/2024 5:31 PM FINDINGS: Bones/joints: Postoperative changes are noted in the lateral malleolus and talus. No bone marrow edema or fracture. Normal alignment. LIGAMENTS: Distal tibiofibular syndesmosis: Unremarkable. No tear. Anterior talofibular ligament: Intact. Posterior talofibular ligament: Mildly increased fluid signal. No full-thickness tear. Calcaneofibular ligament: Not well visualized. Deltoid ligament complex: Mildly increased signal in the posterior tibiotalar and tibiocalcaneal ligaments. TENDONS: Flexor tendons of foot: Unremarkable as visualized. Tibialis posterior tendon: Unremarkable as visualized. Peroneal tendons: Heterogeneous signal and irregularity of the peroneus brevis tendon. No full-thickness peroneus brevis tear. Extensor tendons of foot: Unremarkable as visualized. Tibialis anterior tendon: Unremarkable as visualized. Achilles tendon: Unremarkable as visualized. Soft tissues: Unremarkable. Plantar fascia: Plantar fascia is unremarkable. IMPRESSION: 1. Postoperative changes in the lateral ankle with limited visualization of the lateral ankle ligaments. 2. Mild deltoid ligament sprain. 3. Tendinopathy of the peroneus brevis tendon.
--- NOTE | 2024-04-14 15:36 | MR_ITS ---
PROCEDURE INFORMATION: Exam: MR Left Lower Extremity Without Contrast, Tibia Fibula Exam date and time: 04/14/2024 3:47 PM Age: 38 years old Clinical indication: Pain; Lower leg; Left; Additional info: Eval pain extending proximal to knee TECHNIQUE: Imaging protocol: Magnetic resonance imaging of the left lower extremity without contrast. Exam focused on the tibia and fibula. COMPARISON: CR XR TIBIA FIBULA LT 2V 03/10/2024 5:32 PM FINDINGS: Bones/joints: Normal marrow signal. Normal alignment. No fracture or bone lesions. Knee and ankle joints are unremarkable. Soft tissues: Mild subcutaneous edema. Musculature is unremarkable. IMPRESSION: Unremarkable exam. No acute findings.
== END 2024-04-14 23:59 | disposition home or self-care (01) ==
LOC: RAD 15:36
PROVIDERS: PCP Nurse Practitioner Family; Visit Provider Podiatrist
DX: M25.372 Other instability, left ankle (principal); R60.0 Localized edema; S86.112S Strain of other muscle(s) and tendon(s) of posterior muscle group at lower leg level, left leg, sequela; Z98.890 Other specified postprocedural states
CPT/HCPCS: 73718; 73721

== ENCOUNTER 2024-04-19 13:56 | Outpatient (POV) | payer OTHER, SELFPAY ==
[2024-04-19 14:02] VITALS: BP 128/90; PULSE 77; RESP 16; O2SAT 95; BMI 36.6
--- NOTE | 2024-04-19 14:38 | A.OFFVIS_ITS ---
HPI Data of Consult Patient: new to practice Consult date: 04/19/24 Requesting Physician: Krysten Ferrell APRN Primary Care Provider: John Arevalo APRN Consult Narrative Reason for consult: Left-sided low back pain, left knee pain, left ankle/foot pain History of present illness: Ms. Benítez is a 38 year old female who presents today as a new patient. She is a referral from Dr. John Kennedy's office. Today she rates her pain a 9 out of 10. Patient states primarily almost all of her pain is related to her left knee and left ankle. Patient states that she will occasionally have low back pain along the left side however this only flares up when her knee is hurting really bad. Patient states this has been going on for longer than a year. She describes it as an aching, cramping sensation and does complain of numbness along the left side. Patient does also states she frequently experiences swelling in the foot and ankle area. Patient does state that she ended up having to have ankle surgery last February and again in October this year and ended up having a tendon repair as well as some nerve issues that they were trying to help with. Patient does state that her pain interferes with her ability perform activities of daily living such as cooking and cleaning. She does state that she was also referred to Dr. Ferrell's office for her knee and that she is scheduled for MRI results with him coming up. Patient denies any imaging of her low back. Patient does state that she has a fear of needles and would like to try conservative treatment first. Patient does present today with a boot on her left foot and does state that she is scheduled to see Dr. Zulma chaidez in May to see how the bracing helps. Her Gage has been reviewed. CC: Krysten Ferrell APRN [facility] Disclaimer: The information contained in this section may have been updated after the patient was seen, as this information can be updated by other users. Medical History Encounter for cholecystectomy Gastritis Claustrophobia Pancreatitis COPD (chronic obstructive pulmonary disease) Asthma Surgical History Hx of hand surgery left Previous section 2 H/O oophorectomy History of partial hysterectomy History of ankle surgery 2 surgeries on left ankle Family History Mother Cancer lung Father Cancer brain, lung Grandmother , maternal Cancer colon Diabetes Grandfather , paternal Heart attack massive Social History Smoking Status: Former smoker tobacco type: cigarettes alcohol intake: never substance use type: denies use current occupational status: other Travel in the last 8 weeks: None Review of Systems Review of Systems Review of systems:: pertinent systems reviewed and negative unless documented below Review of systems (narrative): Review of Systems: General: No recent weight changes, no fever, no sleep disturbances Respiratory: No cough, no shortness of air, no recurring pulmonary infections Cardiovascular/peripheral vascular: No chest pain, no palpitations, no edema, no shortness of breath Gastrointestinal: No new onset incontinence, normal bowel movements reported Genitourinary: No new onset incontinence Musculoskeletal: Left knee pain, left foot/ankle pain Psychiatric: [Normal mood/affect] Neurological: [Denies weakness in extremities], [denies balance issues] Meds Home Medications and Allergies Home Medications ?Medication ?Instructions ?Recorded ?Confirmed ?Type albuterol sulfate 90 mcg/actuation 2 puff inhalation Q6H 10/09/17 04/19/24 Histo ry aerosol inhaler (Ventolin HFA) estradiol 2 mg tablet 2 mg PO DAILY #30 tabs 11/11/17 04/19/24 Rx epinephrine 0.3 mg/0.3 mL 0.3 mg (0.3 mL) IM Q10M PRN 01/02/24 04/19/24 Rx injection, auto-injector anaphylaxis #2 ea acetaminophen 500 mg tablet 500 mg PO Q6H PRN 03/16/24 04/19/24 History (Tylenol Extra Strength) albuterol sulfate 2.5 mg/3 mL mg inhalation 03/16/24 04/19/24 History (0.083 %) solution for nebulization cetirizine 1 mg/mL oral solution mg PO 03/16/24 04/19/24 History umeclidinium 62.5 mcg-vilanterol inhalation 03/16/24 04/19/24 History 25 mcg/actuation powdr for inhalation (Anoro Ellipta) famotidine 20 mg tablet 20 mg PO DAILY #30 tabs 03/24/24 04/19/24 Rx nystatin 100,000 unit/gram topical 1 applic topical BID #30 grams 03/24/24 0 04/19/24 Rx powder polyethylene glycol 3350 17 17 g PO DAILY #238 grams 03/24/24 04/19/24 Rx gram/dose oral powder (Miralax) New Prescriptions to Start Prescriptions: Allergies Allergy/AdvReac Type Severity Reaction Status Date / Time Iodinated Contrast Media Allergy Severe angioedema Verified 04/19/24 13:01 aspirin [ASPIRIN] Allergy Unknown Verified 04/19/24 13:01 codeine [CODEINE] Allergy Unknown Verified 04/19/24 13:01 orange juice Allergy Unknown DIARRHEA Verified 04/19/24 13:01 [From ORANGE JUICE (FOOD/DRUG)] Penicillins [PENICILLINS] Allergy Unknown SOB/CHEST Verified 04/19/24 13:01 TIGHTNESS propoxyphene [PROPOXYPHENE] Allergy Unknown Verified 04/19/24 13:01 venom-honey bee Allergy Unknown Verified 04/19/24 13:01 [BEE VENOM (HONEY BEE)] acetaminophen [From Percocet] Allergy Verified 04/19/24 13:01 oxycodone [From Percocet] Allergy Verified 04/19/24 13:01 ibuprofen [IBUPROFEN] AdvReac Unknown UPSET Verified 04/19/24 13:01 STOMACH promethazine [PROMETHAZINE] AdvReac Unknown MAKES HER Verified 04/19/24 13:01 THROW UP From RED DYE (FOOD/DRUG) Allergy Severe S-SWELLS-OR Uncoded 04/19/24 13:01 AL/THROAT GREEN JELLO Allergy Intermediate Uncoded 04/19/24 13:01 From ORANGE JUICE (FOOD/DRUG) Allergy Unknown DIARRHEA Uncoded 04/19/24 13:01 Objective Vital signs: Pulse Resp BP Pulse Ox O2 Del Method 77 16 128/90 95 Room Air 04/19/24 14:02 04/19/24 14:02 04/19/24 14:02 04/19/24 14:02 04/19/24 14:02 Narrative: Physical Exam: General: Alert and oriented x3, no acute distress, pleasant and cooperative Lungs: Respirations even and unlabored, symmetrical chest expansion Eyes: PERRL Musculoskeletal: Flexion and extension of left knee [spine] somewhat guarded secondary to pain Neurological: Speech clear, no gross sensory deficit Additional findings Additional findings: FINDINGS: Bones/joints: Postoperative changes are noted in the lateral malleolus and talus. No bone marrow edema or fracture. Normal alignment. LIGAMENTS: Distal tibiofibular syndesmosis: Unremarkable. No tear. Anterior talofibular ligament: Intact. Posterior talofibular ligament: Mildly increased fluid signal. No full-thickness tear. Calcaneofibular ligament: Not well visualized. Deltoid ligament complex: Mildly increased signal in the posterior tibiotalar and tibiocalcaneal ligaments. TENDONS: Flexor tendons of foot: Unremarkable as visualized. Tibialis posterior tendon: Unremarkable as visualized. Peroneal tendons: Heterogeneous signal and irregularity of the peroneus brevis tendon. No full-thickness peroneus brevis tear. Extensor tendons of foot: Unremarkable as visualized. Tibialis anterior tendon: Unremarkable as visualized. Achilles tendon: Unremarkable as visualized. Soft tissues: Unremarkable. Plantar fascia: Plantar fascia is unremarkable. IMPRESSION: 1. Postoperative changes in the lateral ankle with limited visualization of the lateral ankle ligaments. 2. Mild deltoid ligament sprain. 3. Tendinopathy of the peroneus brevis tendon. Assessment and Plan *Assessment and plan (1) Left knee pain: Status: Acute Qualifiers: Chronicity: chronic Qualified Code(s): M25.562 - Pain in left knee; G89.29 - Other chronic pain Category: Medical Code(s): M25.562 - Pain in left knee (2) Left ankle pain: Status: Acute Qualifiers: Chronicity: chronic Qualified Code(s): M25.572 - Pain in left ankle and joints of left foot; G89.29 - Other chronic pain Category: Medical Code(s): M25.572 - Pain in left ankle and joints of left foot Plan I have reviewed over with the patient that we are an interventional pain clinic and we do a lot of injections and that she may benefit from interventions such as this in future. I did personnel counselor send she is starting to see Dr. Ferrell for her knee pain that we will wait and see what recommendations he has before deciding on injection therapy. I will order the patient a compounded cream. Patient will return to clinic in 1 month to reevaluate patient of symptoms and plan of care. Patient has been instructed to contact the clinic with any concerns before the next appointment. Dr. Quinones has reviewed this note and agrees with this plan of care. This note was dictated using voice recognition software and make contain errors or omissions. All injections are used with Lidocaine or Bupivacaine and Depo Medrol.
== END 2024-04-19 23:59 | disposition home or self-care (01) ==
LOC: SC.PAIN 13:56
PROVIDERS: PCP Nurse Practitioner Family; Visit Provider Nurse Practitioner Family
DX: G89.29 Other chronic pain (principal); M25.562 Pain in left knee; M25.572 Pain in left ankle and joints of left foot
CPT/HCPCS: 99202; G0463

== ENCOUNTER 2024-06-07 17:00 | Outpatient (RCR) | payer OTHER, SELFPAY ==
--- NOTE | 2024-04-27 12:11 | HMH.PTOPEV ---
PT Outpatient Evaluation Rehab PT Outpatient Evaluation Start: 04/27/24 09:49 Freq: Status: Active Protocol: Document 04/27/24 09:49 KRISHNA (Rec: 04/27/24 12:11 KRISHNA [id number]) E-signed By Krysten Howard, PT Outpatient Therapy Subjective History Subjective History Pt is a 38 y/o female referred to PT for L ankle pain, instability, edema and CRPS. Pt reports history of 2 L ankle surgeries (03/19/23 & 10/30), unsure of what procedures were performed. Pt reports she was unable to receive post op care or PT after surgery due to moving. Pt reports pain since surgery with worsening on 03/10/24 after dropping a 10lb weight on the L lateral foot. Pt reports she went to the ED and had multiple xrays with findings of soft tissue swelling. Pt had a L ankle MRI on 04/14/24 with impression of Postoperative changes in the lateral ankle with limited visualization of the lateral ankle ligaments, Mild deltoid ligament sprain, Tendinopathy of the peroneus brevis tendon. Pt reports she was placed in a tall walking boot WBAT with crutches for about 2 weeks. Pt reports she also had an unna boot applied and was given an aircast. Pt reports she has been trying to use the aircast but it increases pain . Pt presents to PT evaluation in a wheelchair. Pt reports she uses her wheelchair for long distances. Pt states she uses her walker and her boot with short distance ambulation . Pt reports she continues to have pain of the lateral foot /ankle into the toes that often feels like her foot is being cut off. Pt reports intermittent numbness/tingling of the ankle/foot at well. Pt reports constant numbness of the lateral malleoli where her incision is. Pt reports pain is aggravated by putting weight on her left foot, with applied heat, laying on the left ankle/foot, and stair climbing (4 [address] home). Pt reports her family members have to assist her with traversing stairs to enter her home. Pt also reports increased swelling with activity, states she has been using ice for this. Pt reports she returns to Dr. Maya in May for her next follow- up visit. Medical History: Gastritis, Claustrophobia, Pancreatitis, COPD, Asthma, L ankle girth: figure 8- 62cm, malleoli circumference- 29cm New diagnosis of cancer in past 12 No months? Chief Complaint Pain,Stiff,Swelling,Gives out/ Unstable,Weakness Symptom Type Sharp,Stabbing,Burning, Numbness,Tingling Symptoms Relieved By Rest/Positioning,Ice, Prescription Meds Symptoms Aggravated By Standing,Physical Activity, Twisting,Walking Current Functional Limitations Housework,Dressing,Standing, Squatting,Recreation Activity, Walking,Stairs,Balance Symptom Description Constant but Variable Level of pain today (0-10) 7 Pain scale - at its best (0-10) 7 Pain scale - at its worst (0-10) 10 Ankle/Foot Eval Palpation Tenderness left Ankle/Foot Palpation Findings Tenderness Ankle/Foot Palpation Overall Comment 3/4 TTP of generalized lateral foot/ankle ROM Ankle/Foot Dorsiflexion W/Knee Flexed 5 Passive Range Motion (degrees) Ankle/Foot Plantar Flexion Active Range 12 of Motion (degrees) Ankle/Foot Eversion Active Range of 7 Motion (degrees) Ankle/Foot Inversion Active Range of 10 Motion (degrees) MMT Ankle Dorsiflexion Strength Grade 3 Fair Ankle Plantarflexion Strength Grade 3 Fair Foot Eversion Strength Grade 3 Fair Foot Inversion Strength Grade 3 Fair Lower Extremity Functional Index Activities Today, do you or would you have any difficulty at all with: a.Any of your usual work, housework or Extreme difficulty or unable school activities to perform activity b. Your usual hobbies, recreational or Extreme difficulty or unable sporting activities to perform activity c. Getting into or out of the bath A little bit of difficulty d. Walking between rooms Quite a bit of difficulty e. Putting on your shoes or socks Quite a bit of difficulty f. Squatting Extreme difficulty or unable to perform activity g. Lifting an object, like a bag of Quite a bit of difficulty groceries from the floor h. Performing light activities around Quite a bit of difficulty your home i. Performing heavy activities around Quite a bit of difficulty your home j. Getting into or out of a car Quite a bit of difficulty k. Walking 2 blocks Extreme difficulty or unable to perform activity l. Walking a mile Extreme difficulty or unable to perform activity m. Going up or down 10 stairs (about 1 Extreme difficulty or unable flight of stairs) to perform activity n. Standing for 1 hour Extreme difficulty or unable to perform activity o. Sitting for 1 hour Extreme difficulty or unable to perform activity p. Running on even ground Extreme difficulty or unable to perform activity q. Running on uneven ground Extreme difficulty or unable to perform activity r. Making sharp turns while running fast Extreme difficulty or unable to perform activity s. Hopping Extreme difficulty or unable to perform activity t. Rolling over in bed Extreme difficulty or unable to perform activity LEFI Score Lower Extremity Functional Index Score 9 Outpatient Therapy Assessment Impairments Problems/Impairmments Palpation Tenderness,Impaired Range of Motion,Impaired Strength,Impaired Transfers, Impaired Gait Pattern,Impaired Walking,Impaired Standing, Impaired Dressing,Impaired Shower/Bathing,Impaired Household Care,Impaired Stair Climbing,Impaired Incline Stepping,Impaired Stepping on Uneven Surface,Impaired Recreational Activities, Impaired Balance,Increased Edema,Lymphedema Present, Subjective C/O Pain,Impaired Self Care/Self Management Prognosis Rehab Potential Good Clinical Impression Consistent with Diagnosis Yes Short Term Goals Number of Weeks 3 Increase Strength Yes: Improve L ankle MMT to at least 4-/5 grossly to assist with function Improve Gait Pattern with Assistive Yes: demonstrate proper gait Device mechanics in tennis shoe with RW to dec fall risk Improve LEFI Score Yes: Improve score to 20/80 to improve overall QOL Decrease Subjective C/O Pain Yes: Improve pain at worst to 8/10 to improve overall QOL Improve Self Care/Self Management Yes Patient to be Ind w/ HEP Yes Penitentiary Goals Number of Weeks 6 Decreased Palpation Tenderness Yes: 1-2/4 TTP of L ankle complex Increase Range of Motion Yes: Improve L ankle AROM to WFL Increase Strength Yes: Improve L ankle MMT to 4- 4+/5 grossly to assist with function Improve Gait Pattern without Assistive Yes: proper gait mechanics Device with LRD to decrease fall risk Improve Ability to Climb Stairs Yes: 1 flight with HR to assist with home navigation Improve LEFI Score Yes: Improve score to at least 40/80 to improve overall QOL Decrease Subjective C/O Pain Yes: Improve pain at worst to 6/10 at worst to improve overall QOL Outpatient Therapy Plan of Care Treatment Plan May Include Therapeutic Exercise Including Home Yes Exercise Program Manual Therapy Techniques Yes Neuromuscular Re-education Yes Therapeutic Activities to Return to Yes Previous Functional/Work Level Gait Training Yes ADL/Self Care Education Yes Dry Needling Yes Thermal Modalities Yes Electrical Stimulation Yes Ultrasound/Phonophoresis Yes Iontophoresis Yes Parrafin Yes Orthotics/Bracing/Splinting Yes Vasopneumatic Compression Pump Yes Massage Yes Manual Lymphatic Drainage Yes Eval/Re-Eval Yes Aquatic Therapy Yes Frequency Times per week 2-3 Duration Number of Weeks 6 Addendums This patient is a candidate for social No or vocational rehab? Patient/Guardian verbally acknowledges Yes understanding of treatment program and consents to further treatment? Patient/Guardian verbally acknowledges Yes understanding of diagnosis, prognosis and goals for treatment? Eval Complexity PT Charges 92198 - Moderate Complexity Shoulder/Elbow Eval Shoulder Objective Measurements Elbow Objective Measurements PHYSICIAN CERTIFICATION: I certify the specified therapy services for Zenaida Benítez are required, authorized, and reviewed every 30 days.
--- NOTE | 2024-06-07 17:22 | HMH.RHREAS ---
Rehab Reassessment Rehab OP Re-assessment Start: 04/27/24 09:49 Freq: Status: Active Protocol: Document 06/07/24 17:16 [email or web address] (Rec: 06/07/24 17:22 [email or web address] [id number]) E-signed By Krysten Howard PT Lower Extremity Functional Index Activities Today, do you or would you have any difficulty at all with: a.Any of your usual work, housework or A little bit of difficulty school activities b. Your usual hobbies, recreational or A little bit of difficulty sporting activities c. Getting into or out of the bath No difficulty d. Walking between rooms A little bit of difficulty e. Putting on your shoes or socks No difficulty f. Squatting A little bit of difficulty g. Lifting an object, like a bag of A little bit of difficulty groceries from the floor h. Performing light activities around No difficulty your home i. Performing heavy activities around A little bit of difficulty your home j. Getting into or out of a car No difficulty k. Walking 2 blocks Quite a bit of difficulty l. Walking a mile Quite a bit of difficulty m. Going up or down 10 stairs (about 1 Quite a bit of difficulty flight of stairs) n. Standing for 1 hour Moderate difficulty o. Sitting for 1 hour Quite a bit of difficulty p. Running on even ground Extreme difficulty or unable to perform activity q. Running on uneven ground Extreme difficulty or unable to perform activity r. Making sharp turns while running fast Extreme difficulty or unable to perform activity s. Hopping A little bit of difficulty t. Rolling over in bed No difficulty LEFI Score Lower Extremity Functional Index Score 47 Rehab Re-assessment Subjective Subjective Pt reports she feels 80% improved since starting PT. Pt reports overall she feels she can move her ankle better and it feels stronger. Pt reports lateral ankle pain at worst as 2/10 with prolonged standing only described as a pinching sensation. Pt reports she still walks with a limp sometimes and has difficulty going up/down stairs due to L knee pain but her ankle/foot does not hurt with walking or stair climbing . Pt reports compliance with HEP. Objective Objective Notes No TTP of L ankle complex noted this date L ankle AROM: Df 15, PF 30, Inv 22, Ev 12 L ankkle MMT: 12/25 grossly Assessment Progress Assessment Progressing as Expected Assessment Notes Pt has attended 6 PT visits consisting of aerobic exercise , ankle mobility, LE stretching/strengthening, balance/proprioception training, modalities and HEP with good tolerance. Pt demonstrated improved LEFS score, ankle AROM, ankle strength and improved subjective report of pain this date compared to the initial evaluation. Pt has met most PT goals and is appropriate to discharge to independent HEP at this time. Patient goals met ST/6 LT/7 Goals Not Met gait (antalgic d/t knee pain) Revised Goals n/a Plan Plan Discharge to independent HEP Time and Billing Re-Eval Time 12 Re-Eval Billing Units 1 PHYSICIAN CERTIFICATION: I certify the specified therapy services for Zenaida Benítez are required, authorized, and reviewed every 30 days.
== END 2024-06-07 17:05 | disposition home or self-care (01) ==
LOC: PT 17:00
PROVIDERS: Visit Provider Podiatrist
DX: M25.572 Pain in left ankle and joints of left foot (principal); M25.372 Other instability, left ankle; G90.522 Complex regional pain syndrome I of left lower limb; R60.0 Localized edema
CPT/HCPCS: 97014; 97110; 97140; 97163; 97164; G0283

== ENCOUNTER 2024-06-13 14:28 | Emergency (ER) | payer OTHER, SELFPAY ==
[2024-06-13 14:45] VITALS: BP 141/86; PULSE 73; RESP 16; TEMP 36.6; O2SAT 99; BMI 43.2
--- NOTE | 2024-06-13 14:46 | XR_ITS ---
PROCEDURE INFORMATION: Exam: XR Left Hand Exam date and time: 06/13/2024 2:58 PM Age: 39 years old Clinical indication: Pain; Hand; Left; Additional info: Pain; PT states it popped about half hour ago and now states numbness in wrist/hand TECHNIQUE: Imaging protocol: Radiologic exam of the left hand. Views: 3 or more views. COMPARISON: CR XR HAND LT MIN 3V 06/13/2024 2:58 PM FINDINGS: Bones/joints: Joint space narrowing in the DIP joints and PIP joints of the fingers and IP joint of the thumb consistent with degenerative changes. Degenerative changes in the radiocarpal joint. There is no evidence of acute fracture.There is no evidence of malalignment or dislocation. Soft tissues: Normal. IMPRESSION: There is no evidence of acute fracture.There is no evidence of malalignment or dislocation.
--- NOTE | 2024-06-13 14:46 | XR_ITS ---
PROCEDURE INFORMATION: Exam: XR Left Wrist Exam date and time: 06/13/2024 3:00 PM Age: 39 years old Clinical indication: Pain; Wrist; Left; Additional info: Pain; PT states it popped about half hour ago and now states numbness in wrist/hand TECHNIQUE: Imaging protocol: Radiologic exam of the left wrist. Views: 3 or more views. COMPARISON: CR XR HAND LT MIN 3V 06/13/2024 2:58 PM FINDINGS: Bones/joints: There is no evidence of acute fracture.There is no evidence of malalignment or dislocation. Degenerative changes in the radiocarpal joint Soft tissues: Normal. IMPRESSION: There is no evidence of acute fracture.There is no evidence of malalignment or dislocation.
--- NOTE | 2024-06-13 15:18 | ED_ITS ---
Discharge Plan Disposition Patient Disposition: Home, Self-Care Condition: Good Prescriptions Prescriptions: New methylprednisolone 4 mg Tablets,Dose Pack 4 mg PO DIRECTED 6 Days Qty: 21 0RF Rx Instructions: Take 1 pack as directed for 6 days No Action Anoro Ellipta 62.5-25 mcg/actuation blister with device inhalation Patient Comments: INHALE 1 PUFF BY MOUTH DAILY cetirizine 1 mg/mL solution PO Patient Comments: TAKE 2 TEASPOONFULS (10ML) BY MOUTH DAILY albuterol sulfate 2.5 mg /3 mL (0.083 %) solution for nebulization inhalation Patient Comments: USE 1 VIAL IN NEBULIZER AND INHALE BY MOUTH THREE TIMES DAILY NEEDED acetaminophen [Tylenol Extra Strength] 500 mg tablet 500 mg PO Q6H PRN albuterol sulfate [Ventolin HFA] 90 mcg/actuation HFA aerosol inhaler 2 puff INHALATION Q6H estradiol 2 mg tablet 2 mg PO DAILY Qty: 30 12RF nystatin 100,000 unit/gram powder 1 applic topical BID Qty: 30 0RF famotidine 20 mg tablet 20 mg PO DAILY Qty: 30 2RF polyethylene glycol 3350 [Miralax] 17 gram/dose powder 17 g PO DAILY Qty: 238 2RF albuterol sulfate 90 mcg/actuation HFA aerosol inhaler 2 puff inhalation Q4-6H PRN (Reason: shortness of breath or wheezing) Qty: 8.5 2RF albuterol sulfate 2.5 mg /3 mL (0.083 %) solution for nebulization 2.5 mg inhalation Q6H PRN (Reason: shortness of breath or wheezing) Qty: 360 2RF epinephrine 0.3 mg/0.3 mL auto-injector 0.3 mg IM Q10M PRN (Reason: anaphylaxis) Qty: 2 0RF Rx Instructions: for 2 doses Referrals Follow up/Referrals: John Arevalo APRN [Primary Care Provider] - See instructions Trev Ferrell DO [Staff Physician] - See instructions Activity Restrictions/Add. Instructions Additional Instructions/Restrictions: Rest the extremity, Elevate the extremity as tolerated while you are resting. Take the medication as directed. Wear the splint to rest your hand and wrist for the next few days. Follow up with Dr. Ferrell (orthopedics). I put in a referral but you need to call his office and schedule an appointment. Follow up with your regular doctor. GO TO THE ER FOR ANY WORSENING SYMPTOMS Clinical Impressions Clinical Impression: Left hand tendonitis, Left hand pain Instructions Patient Instructions: GO for Tendinitis Print Language Print Language: Lithuanian Discharge ED Provider: Jorgito Junior [facility] General Stated complaint: left hand pain, fingers numb, no accident Mode of Arrival: Ambulatory Source of Information: Patient Limitations: No Limitations Time Seen by Provider: 06/13/24 15:07 Description of Symptoms (Recalled from Triage Doc. by RN): Reports that she was walking to [facility] when her left hand randomly popped and her fingers went numb. HEENT Symptoms (Recalled from RN notes): No Resp Symptoms (Recalled from RN notes): No Skin Symptoms (Recalled from RN notes): No MS Symptoms (Recalled from RN notes): Yes Functional Status (Recalled from RN notes): wnl History of Present Illness Provider Complaint: She states that for the past 1 day she has had left hand pain. She states that one of her fingers wouldn't straighten, so she made it straighten and then her hand and wrist started hurting. She has had episodes like this before. Related Data Home Medications ?Medication ?Instructions ?Recorded ?Confirmed albuterol sulfate 90 mcg/actuation 2 puff inhalation Q6H 10/09/17 06/17/24 aerosol inhaler (Ventolin HFA) acetaminophen 500 mg tablet 500 mg PO Q6H PRN 03/16/24 06/17/24 (Tylenol Extra Strength) albuterol sulfate 2.5 mg/3 mL mg inhalation 03/16/24 06/17/24 (0.083 %) solution for nebulization cetirizine 1 mg/mL oral solution mg PO 03/16/24 06/17/24 umeclidinium 62.5 mcg-vilanterol inhalation 03/16/24 06/17/24 25 mcg/actuation powdr for inhalation (Anoro Ellipta) Previous Rx's ?Medication ?Instructions ?Recorded estradiol 2 mg tablet 2 mg PO DAILY #30 tabs 11/11/17 epinephrine 0.3 mg/0.3 mL 0.3 mg (0.3 mL) IM Q10M PRN 01/02/24 injection, auto-injector anaphylaxis #2 ea famotidine 20 mg tablet 20 mg PO DAILY #30 tabs 03/24/24 nystatin 100,000 unit/gram topical 1 applic topical BID #30 grams 03/24/24 powder polyethylene glycol 3350 17 17 g PO DAILY #238 grams 03/24/24 gram/dose oral powder (Miralax) albuterol sulfate 2.5 mg/3 mL 2.5 mg (3 mL) inhalation Q6H PRN 04/27/24 (0.083 %) solution for nebulization shortness of breath or wheezing #360 mL albuterol sulfate 90 mcg/actuation 2 puff inhalation Q4-6H PRN 04/27/24 aerosol inhaler shortness of breath or wheezing #8.5 grams methylprednisolone 4 mg tablets in 4 mg PO DIRECTED 6 days #21 tabs 06/13/24 a dose pack Allergies Allergy/AdvReac Type Severity Reaction Status Date / Time Iodinated Contrast Media Allergy Severe angioedema Verified 06/17/24 13:09 aspirin [ASPIRIN] Allergy Unknown Verified 06/17/24 13:09 codeine [CODEINE] Allergy Unknown Verified 06/17/24 13:09 orange juice Allergy Unknown DIARRHEA Verified 06/17/24 13:09 [From ORANGE JUICE (FOOD/DRUG)] Penicillins [PENICILLINS] Allergy Unknown SOB/CHEST Verified 06/17/24 13:09 TIGHTNESS propoxyphene [PROPOXYPHENE] Allergy Unknown Verified 06/17/24 13:09 venom-honey bee Allergy Unknown Verified 06/17/24 13:09 [BEE VENOM (HONEY BEE)] acetaminophen [From Percocet] Allergy Verified 06/17/24 13:09 oxycodone [From Percocet] Allergy Verified 06/17/24 13:09 ibuprofen [IBUPROFEN] AdvReac Unknown UPSET Verified 06/17/24 13:09 STOMACH promethazine [PROMETHAZINE] AdvReac Unknown MAKES HER Verified 06/17/24 13:09 THROW UP From RED DYE (FOOD/DRUG) Allergy Severe S-SWELLS-OR Uncoded 06/17/24 13:09 AL/THROAT GREEN JELLO Allergy Intermediate Uncoded 06/17/24 13:09 From ORANGE JUICE (FOOD/DRUG) Allergy Unknown DIARRHEA Uncoded 06/17/24 13:09 Worker's Comp Is this a Worker's Comp case?: No [facility] Disclaimer: The information contained in this section may have been updated after the patient was seen, as this information can be updated by other users. Medical History Encounter for cholecystectomy Gastritis Claustrophobia Pancreatitis COPD (chronic obstructive pulmonary disease) Asthma Surgical History Hx of hand surgery left Previous section 2 H/O oophorectomy History of partial hysterectomy History of ankle surgery 2 surgeries on left ankle Family History Mother Cancer lung Father Cancer brain, lung Grandmother , maternal Cancer colon Diabetes Grandfather , paternal Heart attack massive Social History Smoking Status: Former smoker tobacco type: cigarettes alcohol intake: never substance use type: denies use current occupational status: other Travel in the last 8 weeks: None ROS Obtained: Yes All systems reviewed & no additional complaints except as documented Constitutional Constitutional: Denies chills and Denies fever(s) Eyes Eyes: Denies eye discharge ENT Ears, Nose, Mouth, and Throat: Denies dizziness, Denies otalgia and Denies sore throat Cardiovascular Cardiovascular: Denies chest pain Respiratory Respiratory: Denies shortness of breath, Denies chest congestion, Denies cough, Denies stridor and Denies wheezing Gastrointestinal Gastrointestingal: Denies nausea or vomiting Musculoskeletal Musculoskeletal: Reports as per HPI Integumentary/Breasts Skin/Breast: Denies rash Neurologic Neurologic: Denies dizziness and Denies paresthesias Allergic/Immunologic Allergic/Immunologic: Denies wheezing Physical Exam General General appearance: alert and in no apparent distress Head Head exam: atraumatic, normocephalic and normal inspection Eye Eye exam: Present normal appearance, PERRL and EOMI ENT ENT exam: Present normal exam, normal oropharynx, mucous membranes moist, TM's normal bilaterally and normal external ear exam Neck Neck exam: Present normal inspection, full ROM and trachea midline; Absent meningismus or lymphadenopathy Chest Chest inspection: Present normal inspection and symmetric chest wall rise; Absent tenderness Respiratory Respiratory exam: Present normal lung sounds bilaterally; Absent respiratory distress Cardiovascular Cardiovascular exam: Present regular rate and normal rhythm; Absent JVD Abdominal Exam Abdominal exam: Present soft and normal bowel sounds; Absent distention, tenderness or guarding Extremities Exam Extremities exam: Present normal capillary refill; Absent calf tenderness Expanded Upper Extremity Exam Left: Elbow exam: Present normal inspection and full ROM; Absent tenderness, pain w/ pronation/supination or tenderness over radial head Forearm/Wrist exam: Present full ROM and tenderness; Absent swelling, abrasion, laceration, ecchymosis, deformity, crepitus, dislocation, erythema, tenderness over anatomical snuff box or pain with axial thumb loading Hand exam: Present tenderness; Absent full ROM, swelling, abrasion, la ceration, skin avulsion, ecchymosis, deformity, crepitus, dislocation, erythema, amputation, nail avulsion or subungual hematoma Neuromotor exam: Normal wrist extension, thumb opposition, thumb IP flexion, thumb adduction and fingers 2-5 abduction Neurosensory exam: Normal radial nerve, ulnar nerve and median nerve Vascular exam: Normal capillary refill, radial pulse and ulnar pulse Back Exam Back exam: Present normal inspection; Absent tenderness Neurological Exam Neurological exam: Present alert and oriented X3 Psychiatric Psychiatric exam: Present normal affect and normal mood Skin Skin exam: Present warm, dry, intact and normal color Lymphatic Lymphatic Findings: no adenopathy Medical Decision Making Medical Records Medical records reviewed: No I reviewed the patient's medical records. Screening: Per USPSTF and CDC recommendations, given the prevalence of disease in our region, it is our hospital?s policy to screen for HIV and viral Hepatitis for all patients aged 18 and over and those with ongoing risk factors. Gage Inquiry Pt receiving controlled substance: No Vital Signs: 06/13/24 14:45 Temperature 97.9 F Temperature Source Oral Pulse Rate [Radial] 73 Respiratory Rate 16 Blood Pressure [Right Arm] 141/86 H Blood Pressure Mean [Right Arm] 104 Blood Pressure Source [Right Arm] Automatic Cuff Blood Pressure Position [Right Arm] Sitting 02 Sat by Pulse Oximetry 99 Oxygen Delivery Method Room Air Orders (Tests/Meds): ORDERS Category Date Time Status Wrist XR left minimum 3 views [XR wrist LT min 3V] Stat Exams 06/13/24 14:46 Taken XR hand LT min 3V Stat Exams 06/13/24 14:46 Taken Radiology Data #1: Image(s): Hand Image Reviewed: Yes I reviewed the patient's radiology image and Yes I have reviewed radiologist's interpretation Preliminary Findings: No Fracture Seen Accession No. : [id number] Patient Name / ID : YANA THORNE / [id number] Exam Date : 06/13/2024 14:58:43 ( Final ) Study Comment : Sex / Age : F / 39Y Creator : CHRISTI HEARD MD Dictator : [employer] Supervisor : Employment Educational Coord : CHRISTI HEARD MD Approver2 : Report Date : 06/13/2024 16:38:33 My Comment : PROCEDURE INFORMATION: Exam: XR Left Hand Exam date and time: 06/13/2024 2:58 PM Age: 39 years old Clinical indication: Pain; Hand; Left; Additional info: Pain; PT states it popped about half hour ago and now states numbness in wrist/hand TECHNIQUE: Imaging protocol: Radiologic exam of the left hand. Views: 3 or more views. COMPARISON: CR XR HAND LT MIN 3V 06/13/2024 2:58 PM FINDINGS: Bones/joints: Joint space narrowing in the DIP joints and PIP joints of the fingers and IP joint of the thumb consistent with degenerative changes. Degenerative changes in the radiocarpal joint. There is no evidence of acute fracture.There is no evidence of malalignment or dislocation. Soft tissues: Normal. IMPRESSION: There is no evidence of acute fracture.There is no evidence of malalignment or dislocation. #2: Image(s): Wrist Image Reviewed: Yes I reviewed the patient's radiology image and Yes I have reviewed radiologist's interpretation Preliminary Findings: No Fracture Seen Accession No. : [id number] Patient Name / ID : YANA THORNE / [id number] Exam Date : 06/13/2024 15:00:55 ( Final ) Study Comment : Sex / Age : F / 39Y Creator : CHRISTI HEARD MD Dictator : [employer] Supervisor : Employment Educational Coord : CHRISTI HEARD MD Approver2 : Report Date : 06/13/2024 16:39:40 My Comment : PROCEDURE INFORMATION: Exam: XR Left Wrist Exam date and time: 06/13/2024 3:00 PM Age: 39 years old Clinical indication: Pain; Wrist; Left; Additional info: Pain; PT states it popped about half hour ago and now states numbness in wrist/hand TECHNIQUE: Imaging protocol: Radiologic exam of the left wrist. Views: 3 or more views. COMPARISON: CR XR HAND LT MIN 3V 06/13/2024 2:58 PM FINDINGS: Bones/joints: There is no evidence of acute fracture.There is no evidence of malalignment or dislocation. Degenerative changes in the radiocarpal joint Soft tissues: Normal. IMPRESSION: There is no evidence of acute fracture.There is no evidence of malalignment or dislocation. Procedures Risk/Benefits of Procedure(s) Were Explained: Yes Orthopedic Splinting/Casting Injury #1: Side: left Upper Extremity Injury Location: wrist and hand Upper Extremity Immobilizer: volar splint and applied by nurse/dr romeo Post Cast/Splinting Neuro Status: intact and no change Post Cast/Splinting Vasc Status: intact and no change
[2024-06-13 16:15] VITALS: BP 141/86; PULSE 73; RESP 16; TEMP 36.6; O2SAT 99
== END 2024-06-13 16:17 | disposition home or self-care (01) ==
PROVIDERS: Emergency Provider Nurse Practitioner Family; PCP Nurse Practitioner Family
DX: M79.642 Pain in left hand (principal); M67.844 Other specified disorders of tendon, left hand
CPT/HCPCS: 73110; 73130; 99212; 99214; G0463

== ENCOUNTER 2024-06-24 16:00 | Outpatient (RCR) | payer OTHER, SELFPAY | END 2024-06-24 23:59 | disposition home or self-care (01) | LOC: PT 16:00 | PROVIDERS: Visit Provider Physician Assistant Medical | DX: M54.50 Low back pain, unspecified (principal); M53.3 Sacrococcygeal disorders, not elsewhere classified | CPT/HCPCS: 97163 ==

== ENCOUNTER 2024-08-12 14:18 | Outpatient (CLI) | payer OTHER, SELFPAY ==
[2024-08-12 18:44] LABS: Basophils # 0.1 K/mm3 (0-0.2); Basophils % 0.7 % (0.1-2.0); Eosinophils # 0.3 K/mm3 (0.0-0.4); Eosinophils % 4.3 % (0.1-12.0); Hematocrit 42.4 % (37.0-47.0); Lymphocytes # 2.4 K/mm3 (0.7-4.5); Lymphocytes % 33.8 % (10-50); Mean Corpuscular Hemoglobin 28.7 pg (27.0-31.2); Mean Corpuscular Volume 86.9 fl (81-99); Mean Platelet Volume 7.2 fl (7.4-10.4); Monocytes # 0.3 K/mm3 (0.1-1.0); Monocytes % 4.6 % (1.7-9.3); Neutrophils % 56.6 % (37.0-80.0); Platelet Count 440 K/mm3 (142-424); Red Blood Count 4.89 M/mm3 (4.20-5.40); Red Cell Distribution Width 13.6 % (11.5-17.5); White Blood Count 7.1 K/mm3 (4.8-10.8)
[2024-08-12 19:33] LABS: Alanine Aminotransferase 12 U/L (12-78); Albumin Level 4.2 g/dl (3.5-5.0); Albumin/Globulin Ratio 1.4 (1.1-1.8); Alkaline Phosphatase 110 U/L (38-126); Aspartate Amino Transferase 19 U/L (14-36); Bilirubin,Total 0.7 mg/dl (0.2-1.3); Blood Urea Nitrogen 10 mg/dl (7-17); Calcium 9.4 mg/dl (8.4-10.2); Carbon Dioxide 23 mmol/L (22.0-30.0); Chloride 109 mmol/L (98-107); Estimated Glomerular Filt Rate 93 ml/min (>60); GFR (African American) 112 ML/MIN (>60); Glucose 100 mg/dl (74-100); Sodium 141 mmol/L (136-145); Total Protein,Serum 7.2 g/dl (6.3-8.2)
[2024-08-12 19:53] LABS: 25-OH Vitamin D, Total 26.9 ng/mL (30-100)
[2024-08-12 19:54] LABS: Microalbumin/Creatinine Ratio 4.7
[2024-08-12 20:03] LABS: Creatinine,Urine Random 144 mg/dL (Not Estab.)
[2024-08-12 20:05] LABS: Thyroid Stimulating Hormone 0.36 uIU/mL (0.465-4.68)
[2024-08-12 20:24] LABS: Vitamin B12 317 pg/mL (239-931)
[2024-08-12 20:59] LABS: Hemoglobin A1C 5.1 % (4.0-6.0)
[2024-08-12 22:05] LABS: HIV (1&2) Antibody Rapid NONREACTIVE (NONREACTIVE)
[2024-08-14 07:14] LABS: HBsAg Screen Negative (Negative); HCV Ab Non Reactive (Non Reactive); Hep A Ab, IGM Negative (Negative); Hep B Core Ab, IgM Negative (Negative)
== END 2024-08-12 23:59 | disposition home or self-care (01) ==
LOC: LAB.DROPOF 08-13 07:51
PROVIDERS: PCP Internal Medicine; Visit Provider Internal Medicine
DX: R06.02 Shortness of breath (principal); R07.9 Chest pain, unspecified; R60.0 Localized edema; R10.9 Unspecified abdominal pain; J44.9 Chronic obstructive pulmonary disease, unspecified; E66.9 Obesity, unspecified; Z00.00 Encounter for general adult medical examination without abnormal findings; R73.03 Prediabetes
CPT/HCPCS: 80050; 80053; 80074; 82043; 82306; 82570; 82607; 83036; 84443; 85025; 87389

== ENCOUNTER 2024-10-18 12:58 | Outpatient (CLI) | payer OTHER, SELFPAY ==
--- NOTE | 2024-10-18 13:03 | XR_ITS ---
FINAL REPORT CLINICAL HISTORY: foot pain COMPARISON: 03/10/2024 FINDINGS: LEFT FOOT Four views demonstrate no acute fracture or dislocation. The joint spaces appear normal. No acute soft tissue abnormality is seen. IMPRESSION: No acute bony abnormality. Reviewed, Interpreted and Dictated by Puneet Ang MD Transcribed by Mónica Silva Authenticated and [facility]
--- NOTE | 2024-10-18 13:03 | XR_ITS ---
FINAL REPORT CLINICAL HISTORY: left thumb pain COMPARISON: None FINDINGS: LEFT HAND Three views demonstrate no acute fracture or dislocation. The visualized joint spaces are normally aligned. The soft tissues are unremarkable. IMPRESSION: No acute process. Reviewed, Interpreted and Dictated by Puneet Ang MD Transcribed by Mónica Silva Authenticated and [facility]
--- NOTE | 2024-10-18 13:03 | XR_ITS ---
FINAL REPORT CLINICAL HISTORY: ankle pain COMPARISON: 03/10/2024 FINDINGS: LEFT ANKLE 3 views of the left ankle were obtained. There is no acute fracture or dislocation. The mortise is intact. Visualized joint spaces are normally aligned. Soft tissues are unremarkable. IMPRESSION: No acute bony abnormality. Reviewed, Interpreted and Dictated by Puneet Ang MD Transcribed by Mónica Silva Authenticated and [facility]
== END 2024-10-18 23:59 | disposition home or self-care (01) ==
LOC: RAD 13:00
PROVIDERS: PCP Internal Medicine; Visit Provider Nurse Practitioner
DX: M25.572 Pain in left ankle and joints of left foot (principal); G89.29 Other chronic pain; M79.642 Pain in left hand
CPT/HCPCS: 73130; 73610; 73630

== ENCOUNTER 2024-11-29 14:55 | Outpatient (CLI) | payer OTHER, SELFPAY ==
[2024-11-29 21:12] LABS: Thyroid Stimulating Hormone 0.37 uIU/mL (0.465-4.68)
== END 2024-11-29 23:59 | disposition home or self-care (01) ==
LOC: LAB.DROPOF 11-30 09:25
PROVIDERS: PCP Internal Medicine; Visit Provider Internal Medicine
DX: E03.9 Hypothyroidism, unspecified (principal)
CPT/HCPCS: 84443

== ENCOUNTER 2024-12-01 13:15 | Outpatient (CLI) | payer OTHER, SELFPAY ==
[2024-12-01 21:54] LABS: Free T4 (Free Thyroxine) 1.44 ng/dl (0.78-2.19)
[2024-12-04 03:51] LABS: Triiodothyronine (T3) Free 3.2 pg/mL (2.0-4.4)
[2024-12-04 05:21] LABS: Thyroid Peroxidase Antibodies 26 IU/mL (0-34)
[2024-12-06 16:18] LABS: Thyroglobulin Level <1.0 IU/mL (0.0-0.9)
== END 2024-12-01 23:59 | disposition home or self-care (01) ==
LOC: LAB.DROPOF 12-02 11:09
PROVIDERS: PCP Internal Medicine; Visit Provider Internal Medicine
DX: R79.89 Other specified abnormal findings of blood chemistry (principal)
CPT/HCPCS: 84439; 84481; 86376; 86800

== ENCOUNTER 2025-01-03 19:58 | Emergency (ER) | payer OTHER, SELFPAY ==
[2025-01-03 20:11] VITALS: BP 139/98; PULSE 121; RESP 18; TEMP 36.6; O2SAT 99; BMI 33.7
[2025-01-03 20:30] VITALS: BP 127/95; PULSE 108; O2SAT 99
--- NOTE | 2025-01-03 20:34 | XR_ITS ---
PROCEDURE INFORMATION: Exam: XR Chest Exam date and time: 01/03/2025 9:18 PM Age: 39 years old Clinical indication: Dyspnea TECHNIQUE: Imaging protocol: Radiologic exam of the chest. Views: 1 view. COMPARISON: CT ABDOMEN PELVIS W CON 01/02/2024 1:11 PM FINDINGS: Tubes, catheters and devices: None. Lungs: Evidence for calcified lung granuloma in the left chest. The lungs appear otherwise clear. Pleural spaces: No pleural effusion. No pneumothorax. Heart/Mediastinum: Mediastinum and hamlet appear unremarkable. Bones/joints: No acute bony abnormality identified. IMPRESSION: No evidence for an acute cardiopulmonary process.
--- NOTE | 2025-01-03 20:37 | HMH.EDGENADL ---
Discharge Plan Disposition Patient Disposition: Home, Self-Care Prescriptions Prescriptions: New ondansetron 4 mg tablet,disintegrating 4 mg PO Q6H PRN (Reason: nausea and vomiting) 5 Days Qty: 20 0RF No Action cetirizine 1 mg/mL solution PO Patient Comments: TAKE 2 TEASPOONFULS (10ML) BY MOUTH DAILY cholecalciferol (vitamin D3) 250 mcg (10,000 unit) capsule 250 mcg PO DAILY Qty: 90 3RF estradiol 2 mg tablet 2 mg PO DAILY Qty: 30 2RF rosuvastatin 5 mg tablet 5 mg PO DAILY Qty: 30 2RF nystatin 100,000 unit/gram ointment 1 applic topical BID Qty: 30 0RF albuterol sulfate 90 mcg/actuation HFA aerosol inhaler 2 puff inhalation Q4-6H PRN (Reason: shortness of breath or wheezing) Qty: 8.5 2RF albuterol sulfate 2.5 mg /3 mL (0.083 %) solution for nebulization 2.5 mg inhalation Q6H PRN (Reason: shortness of breath or wheezing) Qty: 360 2RF Anoro Ellipta 62.5-25 mcg/actuation blister with device 1 inh inhalation DAILY Qty: 60 8RF epinephrine 0.3 mg/0.3 mL auto-injector 0.3 mg IM Q10M PRN (Reason: anaphylaxis) Qty: 2 0RF Rx Instructions: for 2 doses Referrals Follow up/Referrals: Provider,Referral, MD [Primary Care Provider] - See instructions Activity Restrictions/Add. Instructions Additional Instructions/Restrictions: No evidence of a severe allergic reaction, cardiopulmonary emergency or intra-abdominal emergency today. Please take your nausea medicine and drink plenty of fluids return with any significant worsening of your symptoms. Clinical Impressions Clinical Impression: Atypical chest pain, Abdominal pain, Anxiety Print Language Print Language: Bahamian Discharge ED Provider: Justin Alcazar General Adult [facility] General Chief complaint: Allergic Reaction Stated complaint: SOA,? allergic reaction to new medicine Time Seen by Provider: 01/03/25 20:28 Mode of Arrival: Ambulatory Source of Information: Patient Description of Symptoms (Recalled from ER Triage Doc. by RN): Pt presents for possible allergic reaction to crestor. Pt states she was started on the medication today. Shortly after taking it she had an episode of emesis, and began to feel short of breath. Pt states she is itching all over, and took 1 benadryl History of Present Illness HPI narrative: Patient is a 39-year-old female presenting today with what she believes to be an allergic reaction. Has never had anaphylaxis to her knowledge in the past but states today she was taking a new cholesterol medicine for the first time she is never been exposed to this and started having a headache claimed that she had a rash and chest pain shortness of breath and abdominal pain. She took Benadryl prior to arrival. Related Data Home Medications ?Medication ?Instructions ?Recorded ?Confirmed cetirizine 1 mg/mL oral solution mg PO 03/16/24 12/25/24 Previous Rx's ?Medication ?Instructions ?Recorded epinephrine 0.3 mg/0.3 mL 0.3 mg (0.3 mL) IM Q10M PRN 01/02/24 injection, auto-injector anaphylaxis #2 ea albuterol sulfate 90 mcg/actuation 2 puff inhalation Q4-6H PRN 04/27/24 aerosol inhaler shortness of breath or wheezing #8.5 grams albuterol sulfate 2.5 mg/3 mL 2.5 mg (3 mL) inhalation Q6H PRN 08/23/24 (0.083 %) solution for nebulization shortness of breath or wheezing #360 mL umeclidinium 62.5 mcg-vilanterol 1 inh inhalation DAILY #60 ea 08/23/24 25 mcg/actuation powdr for inhalation (Anoro Ellipta) cholecalciferol (vitamin D3) 250 250 mcg PO DAILY #90 caps 11/29/24 mcg (10,000 unit) capsule estradiol 2 mg tablet 2 mg PO DAILY #30 tabs 11/29/24 rosuvastatin 5 mg tablet 5 mg PO DAILY #30 tabs 12/02/24 nystatin 100,000 unit/gram topical 1 applic topical BID #30 grams 12/25/24 ointment ondansetron 4 mg disintegrating 4 mg PO Q6H PRN nausea and 01/03/25 tablet vomiting 5 days #20 tabs Allergies Allergy/AdvReac Type Severity Reaction Status Date / Time Iodinated Contrast Media Allergy Severe angioedema Verified 12/25/24 15:45 aspirin (ASPIRIN) Allergy Unknown Verified 12/25/24 15:45 codeine (CODEINE) Allergy Unknown Verified 12/25/24 15:45 orange juice (From ORANGE Allergy Unknown DIARRHEA Verified 12/25/24 15:45 JUICE (FOOD/DRUG)) Penicillins (PENICILLINS) Allergy Unknown SOB/CHEST Verified 12/25/24 15:45 TIGHTNESS propoxyphene (PROPOXYPHENE) Allergy Unknown Verified 12/25/24 15:45 venom-honey bee (BEE VENOM Allergy Unknown Verified 12/25/24 15:45 (HONEY BEE)) acetaminophen (From Percocet) Allergy Verified 12/25/24 15:45 amoxicillin Allergy Verified 12/25/24 15:45 oxycodone (From Percocet) Allergy Verified 12/25/24 15:45 ibuprofen (IBUPROFEN) AdvReac Unknown UPSET Verified 12/25/24 15:45 STOMACH promethazine (PROMETHAZINE) AdvReac Unknown MAKES HER Verified 12/25/24 15:45 THROW UP From RED DYE (FOOD/DRUG) Allergy Severe S-SWELLS-OR Uncoded 12/25/24 15:45 AL/THROAT GREEN JELLO Allergy Intermediate Uncoded 12/25/24 15:45 From ORANGE JUICE (FOOD/DRUG) Allergy Unknown DIARRHEA Uncoded 12/25/24 15:45 [facility] Disclaimer: The information contained in this section may have been updated after the patient was seen, as this information can be updated by other users. Medical History Influenza Encounter for cholecystectomy Gastritis Claustrophobia Pancreatitis COPD (chronic obstructive pulmonary disease) Asthma Surgical History Hx of hand surgery left Previous section 2 H/O oophorectomy History of partial hysterectomy History of ankle surgery Family History Mother Cancer lung Father Cancer brain, lung Grandmother , maternal Cancer colon Diabetes Grandfather , paternal Heart attack massive Social History Smoking Status: Current every day smoker tobacco type: cigarettes alcohol intake: never substance use type: denies use current occupational status: other Travel in the last 8 weeks: None Have you lived/traveled outside US in past 30 days?: No Contact w/someone who lives/traveled outside US past 30 days?: No Exposure to someone with infectious disease in past 14 days?: No Do you have a fever (greater than 100.4 F or 38 C)?: No Have you tested positive for COVID-19: No Exposed to someone with COVID-19 in past 14 days?: No Do you have a sore throat?: No Do you have a cough?: No Do you have any weakness?: No Do you have any diarrhea?: No Are you experiencing any unusual bleeding?: No Do you have any muscle aches/pain?: No Do you have any abdominal pain?: No Are you experiencing loss of taste or smell?: No Other Medical History Have you received the Flu Vaccine for this season: No Have you received the Pneumonia Vaccine: No ROS Obtained: Yes All systems reviewed & no additional complaints except as documented Physical Exam General General appearance: anxious ENT ENT exam: Present normal oropharynx and other (No mucosal swelling) Chest Chest inspection: Present normal inspection and symmetric chest wall rise; Absent rash (No urticarial rash) Respiratory Respiratory exam: Present normal lung sounds bilaterally; Absent respiratory distress or wheezes Cardiovascular Cardiovascular exam: Present regular rate and normal rhythm Abdominal Exam Abdominal exam: Present soft; Absent distention or tenderness Neurological Exam Neurological exam: Present alert and oriented X3 Medical Decision Making Medical Records Screening: Per USPSTF and CDC recommendations, given the prevalence of disease in our region, it is our hospital?s policy to screen for HIV and viral Hepatitis for all patients aged 18 and over and those with ongoing risk factors. Gage Inquiry Pt receiving controlled substance: No Vital Signs: 01/03/25 20:11 01/03/25 20:30 Temperature 98 F Temperature Source Oral Pulse Rate 108 H Pulse Rate [Right] 121 H Respiratory Rate 18 Blood Pressure 127/95 H Blood Pressure [Right Arm] 139/98 H Blood Pressure Mean [Right Arm] 111 Blood Pressure Source [Right Arm] Automatic Cuff Blood Pressure Position [Right Arm] Sitting 02 Sat by Pulse Oximetry 99 99 Oxygen Delivery Method Room Air Lab Data Lab results reviewed: Yes I reviewed the patient's lab results. Lab Results 01/03/25 20:39: WBC 12.1 H, RBC 4.63, Hgb 13.6, Hct 40.0, MCV 86.4, MCH 29.4, MCHC 34.0, RDW 13.6, Plt Count 409, MPV 9.3, Neut % (Auto) 60.2, Lymph % (Auto) 30.5, Cecil % (Auto) 4.9, Eos % (Auto) 3.9, Baso % (Auto) 0.3, Neut # (Auto) 7.3, Lymph # (Auto) 3.7, Cecil # (Auto) 0.6, Eos # (Auto) 0.5 H, Baso # (Auto) 0.0, D-Dimer 0.94 H, Sodium 140, Potassium 3.8, Chloride 105, Carbon Dioxide 20 L, Anion Gap 18.8 H, BUN 14, Creatinine 0.90, Estimated Creat Clear 121, Estimated GFR 69, Est GFR ( Amer) 84, Glucose 106 H, Calcium 9.3, Total Bilirubin 0.5, AST 25, ALT 22, Alkaline Phosphatase 93, Troponin I < 0.01, Total Protein 7.7, Albumin 4.2, Globulin 3.5 H, Albumin/Globulin Ratio 1.2, Lipase 54, Serum HCG, Qual Negative 01/03/25 20:39 01/03/25 20:39 Orders (Tests/Meds): ED MEDICATIONS Generic Name Dose Route Start Last Admin Trade Name Freq PRN Reason Stop Dose Admin Lactated Ringer's 1,000 mls @ 999 mls/hr 01/03/25 20:45 01/03/25 20:57 Lactated Ringer's 1000 Ml Bag IV 01/03/25 21:45 999 mls/hr .Q1H1M ALEXIS Administration Sodium Chloride 10 ml 01/03/25 20:34 Sodium Chloride 0.9% 10ml Vial IV 02/02/25 20:33 NEEDED PRN to Dilute Lorazepam inj Discontinued Medications Generic Name Dose Route Start Last Admin Trade Name Freq PRN Reason Stop Dose Admin Lorazepam 1 mg 01/03/25 20:34 01/03/25 20:58 Lorazepam 2mg/Ml Vial IV 01/03/25 20:35 1 mg ONCE ONE Administration Ondansetron HCl 4 mg 01/03/25 20:34 01/03/25 20:58 Ondansetron 4mg/2ml Vial IV 01/03/25 20:35 4 mg ONCE ONE Administration ORDERS Category Date Time Status CXR --portable [XR chest portable] Stat Exams 01/03/25 20:34 Taken CBC w/Auto Diff [Complete Blood Count Auto Diff] Stat Lab 01/03/25 20:39 Completed CMP [Comprehensive Metabolic Panel] Stat Lab 01/03/25 20:39 Completed D-Dimer Stat Lab 01/03/25 20:39 Completed HCG Qualitative, Serum Stat Lab 01/03/25 20:39 Completed Lipase Stat Lab 01/03/25 20:39 Completed Trop I [Troponin I] Stat Lab 01/03/25 20:39 Completed Troponin I Q3H Lab 01/03/25 23:45 Ordered Troponin I Q3H Lab 01/04/25 02:45 Ordered Medical Decision Narrative: 39-year-old who is very anxious at the moment presents today the chest pain abdominal pain headache nausea and send felt were possibly from an allergic reaction. At the moment there is no objective evidence that there is any anaphylaxis or any organ system involvement associated with this at the moment. Specifically she has no wheezing she has no urticarial rash or mucosal surfaces appear normal nonedematous. She is breathing comfortably. Will give her IV fluids Zofran and Ativan. No indication for epinephrine or further steroids or antihistamine treatment at the moment. Will keep a close eye on her and will reassess. Specifically regarding the medication that she thought was the cause of her anaphylaxis this was her first exposure to be exceedingly unlikely to have an anaphylactic response to medication that she is exposed to the first time. EKG was performed which I personally interpreted which shows a ventricular rate of 97 normal sinus rhythm no acute ischemic changes noted normal axis no significant conduction abnormalities. After reassessment at 9:34 PM patient feels much better serial assessments still show no evidence of any anaphylactic or severe or significant allergic reaction. Troponin and D-dimer all within normal limits specifically D-dimer cutoff using years criteria of 1.0 actively rules out pulmonary embolism we will not proceed with a CT PE. She is very stable and comfortable on reassessment. Serial abdominal exams are benign. Overall no allergic reaction noted from an emergency standpoint nor any cardiopulmonary emergency or intra-abdominal emergency. Symptoms are not consistent with acute coronary syndrome serial troponins are not necessary. Patient was discharged in stable condition. Critical Care Critical Care Time Critical Care Time: No
--- NOTE | 2025-01-03 20:50 | ECG_ITS ---
APPROVED REPORT Exam: Resting ECG HR:97 bpm ECG Measurements Heart Rate 97 AXES UT 158 P 56 QRSd 84 QRS 27 QT 352 T 32 QTc 406 Conclusion SINUS RHYTHM NORMAL ECG UNCONFIRMED REPORT Electronically signed by : Jorgito Alcazar, 01/03/2025 23:00:47
[2025-01-03 20:57] LABS: Alanine Aminotransferase 22 U/L (12-78); Albumin Level 4.2 g/dl (3.5-5.0); Albumin/Globulin Ratio 1.2 (1.1-1.8); Alkaline Phosphatase 93 U/L (38-126); Anion Gap 18.8 mEq/L (5-15); Aspartate Amino Transferase 25 U/L (14-36); Bilirubin,Total 0.5 mg/dl (0.2-1.3); Blood Urea Nitrogen 14 mg/dl (7-17); Calcium 9.3 mg/dl (8.4-10.2); Carbon Dioxide 20 mmol/L (22.0-30.0); Chloride 105 mmol/L (98-107); Creatinine Clearance Estimated 121 mL/min (50-200); Estimated Glomerular Filt Rate 69 ml/min (>60); GFR (African American) 84 ML/MIN (>60); Globulin 3.5 g/dL (1.3-3.2); Glucose 106 mg/dl (74-100); Lipase 54 U/L (23-300); Potassium 3.8 mmoL/L (3.5-5.1); Sodium 140 mmol/L (136-145); Total Protein,Serum 7.7 g/dl (6.3-8.2)
[2025-01-03] MEDS: LACTATED RINGERS 1000ML 1,000 ML 999 ML IV (20:57)
[2025-01-03] MEDS: LORazepam 2MG/ML VIAL 1 MG IV (20:58)
[2025-01-03] MEDS: ONDANSETRON 4MG/2ML VIAL 4 MG IV (20:58)
[2025-01-03 21:01] LABS: Basophils % 0.3 % (0.1-2.0); Eosinophils # 0.5 K/mm3 (0.0-0.4); Eosinophils % 3.9 % (0.1-12.0); Hemoglobin 13.6 g/dL (12.2-16.2); Lymphocytes # 3.7 K/mm3 (0.7-4.5); Lymphocytes % 30.5 % (10-50); Mean Corpuscular Hemoglobin 29.4 pg (27.0-31.2); Mean Corpuscular Volume 86.4 fl (81-99); Mean Platelet Volume 9.3 fl (7.4-10.4); Monocytes # 0.6 K/mm3 (0.1-1.0); Monocytes % 4.9 % (1.7-9.3); Neutrophils # 7.3 K/mm3 (1.8-7.8); Neutrophils % 60.2 % (37.0-80.0); Nucleated Red Blood Cells # 0 10^3/uL; Nucleated Red Blood Cells % 0 %; Platelet Count 409 K/mm3 (142-424); Red Blood Count 4.63 M/mm3 (4.20-5.40); Red Cell Distribution Width 13.6 % (11.5-17.5); Red Cell Distribution Width-SD 43.1 fL; White Blood Count 12.1 K/mm3 (4.8-10.8)
[2025-01-03 21:02] LABS: D-Dimer 0.94 ug/mL (0.0-0.5)
[2025-01-03 21:08] LABS: Troponin I < 0.01 ng/ml (0.00-0.034)
[2025-01-03 21:16] LABS: HCG Qualitative, Serum Negative (Negative)
[2025-01-03 21:52] VITALS: BP 136/91; PULSE 100; RESP 15; TEMP 36.8; O2SAT 99
== END 2025-01-03 21:56 | disposition home or self-care (01) ==
PROVIDERS: Emergency Provider Student in an Organized Health Care Education/Training Program
DX: R07.89 Other chest pain (principal); R10.9 Unspecified abdominal pain; F41.9 Anxiety disorder, unspecified; R51.9 Headache, unspecified
CPT/HCPCS: 71045; 80053; 83690; 84484; 84703; 85025; 85378; 93005; 96361; 96374; 96375; 99285; J2060; J2405; J7120

== ENCOUNTER 2025-01-12 13:52 | Outpatient (CLI) | payer OTHER, SELFPAY ==
--- NOTE | 2025-01-12 13:56 | XR_ITS ---
FINAL REPORT CLINICAL HISTORY: Left ankle pain post fall 2 weeks ago COMPARISON: 10/18/2024 FINDINGS: AP, oblique, and lateral views of the left ankle were obtained. There is no acute fracture or dislocation. The ankle mortise is intact. There is mild degenerative joint disease. Soft tissues are unremarkable. IMPRESSION: Degenerative changes without acute osseous abnormality of the left ankle. Reviewed, Interpreted and Dictated by Janice Landa MD Transcribed by Mónica Silva Authenticated and [facility]
== END 2025-01-12 23:59 | disposition home or self-care (01) ==
LOC: RAD 13:53
PROVIDERS: PCP Family Medicine; Visit Provider Nurse Practitioner
DX: M25.572 Pain in left ankle and joints of left foot (principal); G89.29 Other chronic pain
CPT/HCPCS: 73610

== ENCOUNTER 2025-02-24 12:44 | Outpatient (CLI) | payer OTHER, SELFPAY ==
--- NOTE | 2025-02-24 12:48 | XR_ITS ---
FINAL REPORT CLINICAL HISTORY: Left Ankle Pain and swelling COMPARISON: 03/10/2024 FINDINGS: AP, oblique, and lateral views of the left ankle were obtained. There is no fracture or dislocation. The ankle mortise is intact. Mild diffuse soft tissue swelling is present. IMPRESSION: Mild diffuse soft tissue swelling, with no acute osseous abnormality of the left ankle. Reviewed, Interpreted and Dictated by Janice Landa MD Transcribed by Khadijah Mark Authenticated and [facility]
== END 2025-02-24 23:59 | disposition home or self-care (01) ==
LOC: RAD 12:45
PROVIDERS: PCP Family Medicine; Visit Provider Nurse Practitioner
DX: M79.89 Other specified soft tissue disorders (principal)
CPT/HCPCS: 73610

== ENCOUNTER 2025-03-08 13:19 | Outpatient (CLI) | payer OTHER, SELFPAY ==
--- OUTSIDE RECORDS SUMMARY | 2025-03-08 13:24 | XMS_ITS | Clinical Summary ---
Author Organization Healthcare Address [address] [place] [address] Care Team Providers Care Videotape Editor Name Role Phone Mickey John Ida METCALF Primary Care Provider [phone] Allergies Active Allergy Reactions Criticality Noted Date Comments Ibuprofen Other - please docum ent in the comment field Low 03/30/2024 Iodinated Contrast Media Angioedema High 03/30/2024 Penicillins Other - please docum ent in the comment field Low 03/30/2024 Medications acetaminophen (Tylenol) 500 MG tablet 1 tablet (500 mg). 4 Active albuterol (Proventil) (2.5 MG/3ML) 0.083% nebulizer solution 4 Active cetirizine (ZyrTEC) 1 MG/ML syrup TAKE 2 TEASPOONFULS (10ML) BY MOUTH DAILY 4 Active estradiol (Estrace) 2 MG tablet Take 1 tablet (2 mg) by mouth 1 (one) time each day in the morning. 4 Active famotidine (Pepcid) 20 MG tablet 1 tablet (20 mg). 4 Active nystatin (Mycostatin) 236840 UNIT/GM powder 2 (two) times a day. 4 Active HM ClearLax 17 GM/SCOOP powder 4 Active Anoro Ellipta 62.5-25 MCG/ACT aerosol powder aerosol powder 1 Inhalation. 4 Active Active Problems Problem Noted Date Diagnosed Date Class III obesity with body mass index (BMI) of 40.0 or higher 06/09/2024 Lumbar pain 06/09/2024 Social History Tobacco Use Types Packs/Day Years Used Date Smoking Tobacco: Former Cigarettes Smokeless Tobacco: Never Tobacco Cessation:Counseling Given: Not Answered Alcohol Use Standard Drinks/Week Comments Never 0 (1 standard drink = 0.6 oz pur e alcohol) Comments Unknown Sex and Gender Information Value Date Recorded Sex Assigned at Not on file Legal Sex Female 8:29 PM EDT Gender Identity Not on file Sexual Orientation Not on file Last Filed Vital Signs Vital Sign Reading Time Taken Comments Blood Pressure 125/91 06/09/2024 1:10 PM EDT Pulse 91 06/09/2024 1:10 PM EDT Temperature - - Respiratory Rate - - Oxygen Saturation 97% 06/09/2024 1:10 PM EDT Inhaled Oxygen Concentration - - Weight 118 kg (260 lb) 06/09/2024 1:10 PM EDT Height 165.1 cm (5' 5 ) 06/09/2024 1:10 PM EDT Body Mass Index 43.27 06/09/2024 1:10 PM EDT Plan of Treatment Health Maintenance Due Date Last Done Comments [facility]-Depression Screening 1984 [facility]-HIV Screening 1984 [facility]-Hepatitis C Screening 1984 [facility]-/Child/Adol SDOH Screenings 1984 [facility]-Varicella Vaccines (1 of 2 - 13+ 2-dose series) 1997 [facility]-DTaP,Tdap,and Td Vaccine s (2 - Tdap) 03/20/1999 03/19/1999 HPV Vaccines (1 - 3-dose series) 1999 [facility]- SDOH Screenings 2002 [facility]-Adult SDOH Screenings 2002 [facility]-Pap Smear 2005 [facility]-Cervical Cancer Screening 2014 [facility]-HPV/Cotest 2014 [id number] Vaccine ( - season) 2024 [facility]-Influenza Vaccine ([place]as[place] n Ended) 2025 06/27/2017 [facility]-Zoster Vaccines (1 of 2) 2034 [facility]-Hepatitis B Vaccines Completed 002, 04/18/1999, 03/19/1999 [facility]-Obesity Intervention Completed 06/09/2024 [facility]-HIB Vaccines Aged Out No longer e ligible based on patient's age to complete this topic [facility]-Hepatitis A Vaccines Aged Out No longer eligible based on patient's age to complete this topic [facility]-IPV Vaccines Aged Out No longer e ligible based on patient's age to complete this topic [facility]-Pneumococcal Vaccine: Pediatrics (0 to 5 Years) and At-Risk Patients (6 to 49 Years) Aged Out No longer eligible b ased on patient's age to complete this topic [facility]-Rotavirus Vaccines Aged Out No lo nger eligible based on patient's age to complete this topic Insurance Care Teams Videotape Editor Relationship Specialty Start Date End Date John Arevalo APRN [address] [phone] PCP - General 04/21/24
--- NOTE | 2025-03-08 13:45 | MR_ITS ---
FINAL REPORT CLINICAL HISTORY: Left ankle pain and instability SWELLING LATERAL SIDE ANKLE PAIN HX OF ANKLE SX X 2 YEARS AGO NO INJURY BRUSING ABLE TO FEEL KNOT ON LATERAL SIDE OF ANKLE AROUND SX PER PATIENT BUT ONLY WHEN SWELLING IS INCREASED. COMPARISON: None FINDINGS: Multiplanar MR imaging of the left ankle was performed without contrast. There is magnetic artifact in the distal fibula and lateral talus consistent with prior surgery. The bony structures are intact without evidence of fracture, bone bruise or marrow edema. Ankle mortise appears intact. No osteochondral lesion is identified. The ligaments are intact without evidence of injury. The flexor and extensor tendons are intact. The Achilles tendon and plantar fascia are intact. The posterior plantar aponeurosis is intact. No significant joint effusion is seen. The musculature is intact. There is no evidence of soft tissue mass or cyst. IMPRESSION: Postoperative changes in the distal fibula and lateral talus from prior fixation. No acute abnormality. Reviewed, Interpreted and Dictated by Puneet Ang MD Transcribed by Willow Pearson Authenticated and [facility]
== END 2025-03-08 23:59 | disposition home or self-care (01) ==
LOC: RAD 13:20
PROVIDERS: PCP Family Medicine; Visit Provider Nurse Practitioner
DX: S93.402A Sprain of unspecified ligament of left ankle, initial encounter (principal); S96.912A Strain of unspecified muscle and tendon at ankle and foot level, left foot, initial encounter; Z98.890 Other specified postprocedural states
CPT/HCPCS: 73721

== ENCOUNTER 2025-05-12 10:30 | Emergency (ER) | payer OTHER, SELFPAY ==
[2025-05-12 10:40] VITALS: BP 128/95; PULSE 90; RESP 17; TEMP 36.6; O2SAT 96; BMI 31.9
--- OUTSIDE RECORDS SUMMARY | 2025-05-12 10:40 | XMS_ITS | Clinical Summary ---
Author Organization Healthcare Address [address] [place] [address] Care Team Providers Care Forest Patrolman Name Role Phone Mickey John Ida METCALF Primary Care Provider [phone] Allergies Active Allergy Reactions Criticality Noted Date [...] tablet (20 mg). 4 Active nystatin (Mycostatin) 515017 UNIT/GM powder 2 (two) times a day. [...] [facility]-HIV Screening 1984 [facility]-Hepatitis C Screening 1984 [facility]-Infant/Child/Adol SDOH Screenings 1984 [facility]-Varicella Vaccines (1 of 2 - 13+ 2-dose series) 1997 [facility]-DTaP,Tdap,and Td Vaccine s (2 - Tdap) 03/20/1999 03/19/1999 [facility]- SDOH Screenings 2002 [facility]-Adult SDOH Screenings 2002 [facility]-Pap Smear 2005 HPV Vaccines (1 - 3-dose SCD M series) 2011 [facility]-Cervical Cancer Screening 2014 [facility]-HPV/Cotest 2014 [id number] Vaccine ( - season) 2024 [facility]-Influenza Vaccine (#1) 2025 06/27/2017 [facility]-Zoster Vaccines (1 of 2) [...] to complete this topic Insurance Care Teams Forest Patrolman Relationship Specialty Start Date End Date John Arevalo APRN [address] [phone] PCP - General 04/21/24
[2025-05-12 11:01] VITALS: BP 133/84; PULSE 93; O2SAT 99
--- NOTE | 2025-05-12 11:07 | XR_ITS ---
FINAL REPORT CLINICAL HISTORY: injury, pain laterally FINDINGS: LEFT ANKLE Three views demonstrate no acute fracture or dislocation. The visualized joint spaces are normally aligned. Mortise is intact. There is mild soft tissue edema. IMPRESSION: No acute bony abnormality. Reviewed, Interpreted and Dictated by Puneet Ang MD Transcribed by Aleisha Mathis Authenticated and . [facility]
--- NOTE | 2025-05-12 11:07 | XR_ITS ---
FINAL REPORT CLINICAL HISTORY: injury, pain laterally FINDINGS: LEFT FOOT Three views of the left foot demonstrate no acute fracture or dislocation. The visualized joint spaces are normally aligned. The soft tissues are unremarkable. IMPRESSION: No acute bony abnormality. Reviewed, Interpreted and Dictated by Puneet Ang MD Transcribed by Aleisha Mathis Authenticated and [facility]
--- NOTE | 2025-05-12 11:07 | XR_ITS ---
FINAL REPORT CLINICAL HISTORY: injury, pain laterally FINDINGS: LEFT TIBIA AND FIBULA 2 views were obtained. There is no acute fracture or dislocation. The joint spaces are intact. There is no soft tissue abnormality. IMPRESSION: No acute fracture Reviewed, Interpreted and Dictated by Puneet Ang MD Transcribed by Aleisha Mathis Authenticated and [facility]
--- NOTE | 2025-05-12 11:09 | HMH.EDGENADL ---
Discharge Plan Disposition Patient Disposition: Home, Self-Care Prescriptions Prescriptions: No Action cetirizine 1 mg/mL solution PO Patient Comments: TAKE 2 TEASPOONFULS (10ML) BY MOUTH DAILY estradiol 2 mg tablet 2 mg PO DAILY Qty: 30 2RF ondansetron 4 mg tablet,disintegrating 4 mg PO Q8H PRN (Reason: nausea and vomiting) Qty: 10 0RF Anoro Ellipta 62.5-25 mcg/actuation blister with device 1 inh inhalation DAILY Qty: 60 8RF cholecalciferol (vitamin D3) 125 mcg (5,000 unit) capsule 125 mcg PO DAILY albuterol sulfate 90 mcg/actuation HFA aerosol inhaler 2 puff inhalation Q4-6H PRN (Reason: shortness of breath or wheezing) Qty: 8.5 2RF albuterol sulfate 2.5 mg /3 mL (0.083 %) solution for nebulization 2.5 mg inhalation Q6H PRN (Reason: shortness of breath or wheezing) Qty: 360 2RF Referrals Follow up/Referrals: Trev Ferrell DO [Staff Physician, Orthopedics] - See instructions Clyde Torres MD [Primary Care Provider, Family Practice] - See instructions Activity Restrictions/Add. Instructions Additional Instructions/Restrictions: Please follow-up with Dr. Ferrell in 1 to 2 weeks if you are not improving. You may bear weight as you can tolerate. You may take [id number] medications as discussed at the bedside. Clinical Impressions Clinical Impression: Injury of ankle, left Print Language Print Language: Zimbabwean Discharge ED Provider: Justin Alcazar General Adult HPI General Chief complaint: Extremity Injury, Lower Stated complaint: AO-05/12 swollen left ankle and foot Time Seen by Provider: 05/12/25 10:35 Mode of Arrival: Wheelchair Source of Information: Patient Description of Symptoms (Recalled from ER Triage Doc. by RN): Patient presents to ED from home with c/o left ankle pain. States she slipped on wet grass this morning and her left leg bend under her. Notes hx of two previous surgeries to that ankle. History of Present Illness HPI narrative: 39-year-old presenting today with injury to the lateral side of her left ankle after significant plantar flexion feeling that her foot bent under her. She has had ankle surgeries to this ankle in the past. Related Data Home Medications ?Medication ?Instructions ?Recorded ?Confirmed cetirizine 1 mg/mL oral solution mg PO 03/16/24 04/01/25 cholecalciferol (vitamin D3) 125 125 mcg PO DAILY 03/07/25 04/01/25 mcg (5,000 unit) capsule Previous Rx's ?Medication ?Instructions ?Recorded umeclidinium 62.5 mcg-vilanterol 1 inh inhalation DAILY #60 ea 08/23/24 25 mcg/actuation powdr for inhalation (Anoro Ellipta) estradiol 2 mg tablet 2 mg PO DAILY #30 tabs 11/29/24 ondansetron 4 mg disintegrating 4 mg PO Q8H PRN nausea and 03/31/25 tablet vomiting #10 tabs albuterol sulfate 2.5 mg/3 mL 2.5 mg (3 mL) inhalation Q6H PRN 05/02/25 (0.083 %) solution for nebulization shortness of breath or wheezing #360 mL albuterol sulfate 90 mcg/actuation 2 puff inhalation Q4-6H PRN 05/02/25 aerosol inhaler shortness of breath or wheezing #8.5 grams Allergies Allergy/AdvReac Type Severity Reaction Status Date / Time Iodinated Contrast Media Allergy Severe angioedema Verified 04/01/25 09:31 aspirin (ASPIRIN) Allergy Unknown Verified 04/01/25 09:31 codeine (CODEINE) Allergy Unknown Verified 04/01/25 09:31 orange juice (From ORANGE Allergy Unknown DIARRHEA Verified 04/01/25 09:31 JUICE (FOOD/DRUG)) Penicillins (PENICILLINS) Allergy Unknown SOB/CHEST Verified 04/01/25 09:31 TIGHTNESS propoxyphene (PROPOXYPHENE) Allergy Unknown Verified 04/01/25 09:31 venom-honey bee (BEE VENOM Allergy Unknown Verified 04/01/25 09:31 (HONEY BEE)) acetaminophen (From Percocet) Allergy Verified 04/01/25 09:31 amoxicillin Allergy Verified 04/01/25 09:31 oxycodone (From Percocet) Allergy Verified 04/01/25 09:31 ibuprofen (IBUPROFEN) AdvReac Unknown UPSET Verified 04/01/25 09:31 STOMACH promethazine (PROMETHAZINE) AdvReac Unknown MAKES HER Verified 04/01/25 09:31 THROW UP From RED DYE (FOOD/DRUG) Allergy Severe S-SWELLS-OR Uncoded 04/01/25 09:31 AL/THROAT GREEN JELLO Allergy Intermediate Uncoded 04/01/25 09:31 From ORANGE JUICE (FOOD/DRUG) Allergy Unknown DIARRHEA Uncoded 04/01/25 09:[address] [facility] Disclaimer: The information contained in this section may have been updated after the patient was seen, as this information can be updated by other users. Medical History (Updated 05/12/25 @ 11:09 by Justin Alcazar MD) Nausea Smoking greater than 20 pack years Dyspnea on exertion Allergic rhinitis Influenza Encounter for cholecystectomy Gastritis Claustrophobia Pancreatitis COPD (chronic obstructive pulmonary disease) Asthma Surgical History History of appendectomy Hx of hand surgery Previous section H/O oophorectomy History of partial hysterectomy History of ankle surgery Family History Mother Cancer lung Father Cancer brain, lung Grandmother , maternal Cancer colon Diabetes Grandfather , paternal Heart attack massive Family/Other Cancer aunt with colon cancer Social History Smoking Status: Current every day smoker tobacco type: cigarettes alcohol intake: never substance use type: denies use current occupational status: other Travel in the last 8 weeks?: None Have you lived/traveled outside US in past 30 days?: No Contact w/someone who lives/traveled outside US past 30 days?: No Exposure to someone with infectious disease in past 14 days?: No Do you have a fever (greater than 100.4 F or 38 C)?: No Have you tested positive for COVID-19?: No Exposed to someone with COVID-19 in past 14 days?: No Do you have a sore throat?: No Do you have a cough?: No Do you have any weakness?: No Do you have any diarrhea?: No Are you experiencing any unusual bleeding?: No Do you have any muscle aches/pain?: No Do you have any abdominal pain?: No Are you experiencing loss of taste or smell?: No Other Medical History Have you received the Flu Vaccine for this season: No Have you received the Pneumonia Vaccine: No ROS Obtained: Yes All systems reviewed & no additional complaints except as documented Physical Exam General General appearance: alert and in no apparent distress Respiratory Respiratory exam: Present normal lung sounds bilaterally Cardiovascular Cardiovascular exam: Present regular rate and normal rhythm Extremities Exam Extremities exam: Present other (Tenderness pain and swelling over the lateral malleolus of the left ankle) Neurological Exam Neurological exam: Present alert and oriented X3 Medical Decision Making Medical Records Screening: Per USPSTF and CDC recommendations, given the prevalence of disease in our region, it is our hospital?s policy to screen for HIV and viral Hepatitis for all patients aged 18 and over and those with ongoing risk factors. Gage Inquiry Pt receiving controlled substance: No Vital Signs: 05/12/25 10:40 05/12/25 11:01 Temperature 97.8 F Temperature Source Oral Pulse Rate 93 H Pulse Rate [Left] 90 Respiratory Rate 17 Blood Pressure 133/84 Blood Pressure [Right Arm] 128/95 H Blood Pressure Mean 111 Blood Pressure Mean [Right Arm] 106 Blood Pressure Source [Right Arm] Automatic Cuff 02 Sat by Pulse Oximetry 96 99 Oxygen Delivery Method Room Air Room Air Orders (Tests/Meds): ORDERS Category Date Time Status Ankle XR - Left minimum 3 Views [XR ankle LT min 3V] Exams 05/12/25 11:07 Taken Stat Foot XR left minimum 3 views [XR foot LT min 3V] Stat Exams 05/12/25 11:07 Taken Tibia/fibula XR left 2 views [XR tibia fibula LT 2V] Exams 05/12/25 11:07 Taken Stat Medical Decision Narrative: Patient with above history and physical differential includes fracture dislocation sprain will get plain films and reassess. X-rays of the patient's tib-fib ankle and foot were performed and I personally interpreted and shows no evidence of any fracture or dislocation patient states that she has difficult time walking we will get her into a walking boot to see if she can bear weight have her follow-up with Dr. Ferrell in 1 to 2 weeks if she is not improving. Critical Care Critical Care Time Critical Care Time: No
[2025-05-12 11:31] VITALS: BP 119/77; PULSE 84; O2SAT 96
[2025-05-12 11:59] VITALS: BP 119/77; PULSE 84; RESP 17; TEMP 37.1; O2SAT 99
== END 2025-05-12 12:01 | disposition home or self-care (01) ==
PROVIDERS: Emergency Provider Student in an Organized Health Care Education/Training Program; PCP Family Medicine
DX: S99.912A Unspecified injury of left ankle, initial encounter (principal); M25.572 Pain in left ankle and joints of left foot; W01.0XXA Fall on same level from slipping, tripping and stumbling without subsequent striking against object, initial encounter
CPT/HCPCS: 73590; 73610; 73630; 99283

== ENCOUNTER 2025-05-19 09:40 | Outpatient (CLI) | payer OTHER, SELFPAY ==
--- OUTSIDE RECORDS SUMMARY | 2025-05-19 09:47 | XMS_ITS | Clinical Summary ---
Author Organization Healthcare Address [address] [place] [address] Care Team Providers Care Form Raiser Name Role Phone Mickey John Ida METCALF Primary Care Provider [phone] Allergies Active Allergy Reactions Criticality Noted Date [...] tablet (20 mg). 4 Active nystatin (Mycostatin) 582588 UNIT/GM powder 2 (two) times a day. [...] 2011 [facility]-Cervical Cancer Screening 2014 [facility]-HPV/Cotest 2014 [id number] Vaccine ( - season) 2024 [facility]-Influenza Vaccine [...] to complete this topic Insurance Care Teams Form Raiser Relationship Specialty Start Date End Date John Arevalo APRN [address] [id number] PCP - General 04/21/24
[2025-05-19] MEDS: ALBUTEROL 0.083% 2.5 MG/3 ML NEB IH (11:04)
--- NOTE | 2025-05-19 11:20 | RESP.PFTSS ---
PATIENT UNABLE TO DO WALK TEST DUE HURT ANKLE AND IN A BOOT
== END 2025-05-19 23:59 | disposition home or self-care (01) ==
LOC: RT 09:41
PROVIDERS: PCP Family Medicine; Visit Provider Internal Medicine Pulmonary Disease
DX: R06.02 Shortness of breath (principal)
CPT/HCPCS: 94060; 94618; 94726; 94729

== ENCOUNTER 2025-05-31 16:39 | Outpatient (CLI) | payer OTHER, SELFPAY ==
--- OUTSIDE RECORDS SUMMARY | 2025-05-31 16:41 | XMS_ITS | Clinical Summary ---
Author Organization Healthcare Address [address] [place] [address] Care Team Providers Care Tie Sawyer Name Role Phone Mickey John Ida METCALF Primary Care Provider [phone] Allergies Active Allergy Reactions Criticality Noted Date [...] tablet (20 mg). 4 Active nystatin (Mycostatin) 702641 UNIT/GM powder 2 (two) times a day. [...] 2011 [facility]-Cervical Cancer Screening 2014 [facility]-HPV/Cotest 2014 [id number] Vaccine ( - season) 2025 [facility]-Influenza Vaccine (#1) 2025 06/27/2017 [facility]-Zoster Vaccines [...] to complete this topic Insurance Care Teams Tie Sawyer Relationship Specialty Start Date End Date John Arevalo APRN [address] [phone] PCP - General 04/21/24
--- NOTE | 2025-05-31 17:00 | MR_ITS ---
PROCEDURE INFORMATION: Exam: MR Left Lower Extremity Joint Without Contrast; Ankle Exam date and time: 05/31/2025 4:44 PM Age: 40 years old Clinical indication: Pain; Ankle; Left; Additional info: Injury TECHNIQUE: Imaging protocol: Magnetic resonance imaging of the left lower extremity without contrast. Exam focused on the ankle. COMPARISON: MR ANKLE LT WO CON 03/08/2025 1:28 PM FINDINGS: Bones/joints: Orthopedic hardware remains in place in the lateral malleolus and lateral aspect of the talus. Overall osseous alignment is normal. There is a moderate amount of marrow edema throughout the anterior process of the talus, which represents a change from previous. No discrete fracture line visualized. No prominent arthritic changes evident. No significant joint fluid. LIGAMENTS: Distal tibiofibular syndesmosis: Unremarkable. No tear. Anterior talofibular ligament: Unremarkable. No tear. Posterior talofibular ligament: Unremarkable. No tear. Calcaneofibular ligament: Unremarkable. No tear. Deltoid ligament complex: Unremarkable. No tear. TENDONS: Flexor tendons of foot: Unremarkable as visualized. Tibialis posterior tendon: Unremarkable as visualized. Peroneal tendons: Unremarkable as visualized. Extensor tendons of foot: Unremarkable as visualized. Tibialis anterior tendon: Unremarkable as visualized. Achilles tendon: Unremarkable as visualized. Tarsal canal (Sinus tarsi): Unremarkable. Normal signal of the fat. Tarsal tunnel: Unremarkable. Soft tissues: Unremarkable. Plantar fascia: Plantar fascia is unremarkable. IMPRESSION: Marrow edema throughout the anterior process of the talus. In the setting of recent trauma, this raises concern for bone contusion or possibly subtle fracture. Consider correlation with CT. No evidence of soft tissue derangement of the ankle.
== END 2025-05-31 23:59 | disposition home or self-care (01) ==
LOC: RAD 16:39
PROVIDERS: PCP Family Medicine; Visit Provider Physician Assistant
DX: S99.912A Unspecified injury of left ankle, initial encounter (principal); R93.6 Abnormal findings on diagnostic imaging of limbs
CPT/HCPCS: 73721

== ENCOUNTER 2025-06-04 15:05 | Emergency (ER) | payer OTHER, SELFPAY ==
[2025-06-04 15:15] VITALS: BP 121/79; PULSE 86; RESP 16; TEMP 36.7; O2SAT 99; BMI 31.6
--- OUTSIDE RECORDS SUMMARY | 2025-06-04 15:15 | XMS_ITS | Clinical Summary ---
Author Organization Healthcare Address [address] [place] [address] Care Team Providers Care Almond Sorter Name Role Phone Mickey John Ida METCALF Primary Care Provider [phone] Allergies Active Allergy Reactions Criticality Noted Date [...] tablet (20 mg). 4 Active nystatin (Mycostatin) 285946 UNIT/GM powder 2 (two) times a day. [...] 2011 [facility]-Cervical Cancer Screening 2014 [facility]-HPV/Cotest 2014 [id number] Vaccine ( - season) 2025 [facility]-Influenza Vaccine [...] to complete this topic Insurance Care Teams Almond Sorter Relationship Specialty Start Date End Date John Arevalo APRN [address] [phone] PCP - General 04/21/24
--- NOTE | 2025-06-04 15:30 | ED_ITS ---
<Statement entered by Daniel Ojeda DO - 06/04/25 23:47> I was consulted by the JACKIE, and we discussed the complexity of problems being addressed. I approved the treatment and management plan for this patient's care in the emergency department, thus performing a substantive portion of the medical decision making. I independently evaluated this patient as well. Patient tells me that she is having left ankle pain that has persisted after walking on her tippy toes at the recommendation of podiatry. I cannot find this recommendation documented in the podiatry note. Essentially, the patient states that she has had no new injury to the ankle and that she is merely tired of walking on her toes. I have reviewed the patient's MRI which showed marrow edema throughout the anterior process of the talus in the setting of recent trauma which raises concern for a bone contusion or possible subtle fracture. There is no evidence of soft tissue derangement about the ankle. I discussed with the patient that I do not feel that she would benefit from repeat x-rays given that she has not had any new trauma. We ultimately recommended that she continue wearing the walking boot as recommended by orthopedic surgery and continue to follow-up with podiatry as scheduled. I have told her that I feel it is appropriate for her to walk on her flat feet in the boot and to stop walking on her toes. We have offered crutches and other durable medical equipment but she has declined. Patient was stable for discharge home Daniel Ojeda DO Discharge Plan Disposition Patient Disposition: Home, Self-Care Prescriptions Prescriptions: No Action cetirizine 1 mg/mL solution PO Patient Comments: TAKE 2 TEASPOONFULS (10ML) BY MOUTH DAILY ondansetron 4 mg tablet,disintegrating 4 mg PO Q8H PRN (Reason: nausea and vomiting) Qty: 10 0RF cholecalciferol (vitamin D3) 125 mcg (5,000 unit) capsule 125 mcg PO DAILY albuterol sulfate 90 mcg/actuation HFA aerosol inhaler 2 puff inhalation Q4-6H PRN (Reason: shortness of breath or wheezing) Qty: 8.5 2RF albuterol sulfate 2.5 mg /3 mL (0.083 %) solution for nebulization 2.5 mg inhalation Q6H PRN (Reason: shortness of breath or wheezing) Qty: 360 2RF nicotine (polacrilex) [Nicorette] 4 mg gum 4 mg buccal Q2H PRN (Reason: nicotine cravings) Qty: 110 2RF umeclidinium-vilanterol [Anoro Ellipta] 62.5-25 mcg/actuation blister with device 1 inh inhalation DAILY Qty: 60 8RF estradiol 2 mg tablet 2 mg PO DAILY Qty: 30 2RF Referrals Follow up/Referrals: Clyde Torres MD [Primary Care Provider, Family Practice] - See instructions Activity Restrictions/Add. Instructions Additional Instructions/Restrictions: Today you were evaluated in the emergency department. Please continue to use your boot, you may additionally use your crutches or wheelchair until you are able to discuss further direction from podiatry. Please call their office Friday morning. Return to the ED for any worsening of your condition. Clinical Impressions Clinical Impression: Left ankle pain Instructions Patient Instructions: DI for Ankle Pain Print Language Print Language: Prydeinig Discharge ED Provider: Daniel Ojeda General Adult HPI General Chief complaint: Extremity Problem,Nontraumatic Stated complaint: left foot painful and swollen Time Seen by Provider: 06/04/25 15:16 Mode of Arrival: Wheelchair Source of Information: Patient Description of Symptoms (Recalled from ER Triage Doc. by RN): pts left foot hurts inside her boot. mad an MRI on 05/31 History of Present Illness HPI narrative: patient is a 40-year-old female PMHx tobacco use, GERD, obesity, CRPS, left ankle instability, COPD who presents to the ED for complaints of left ankle pain. Patient states she has been evaluated for ankle pain multiple times, most recently had an MRI of her left ankle. Related Data Home Medications ?Medication ?Instructions ?Recorded ?Confirmed cetirizine 1 mg/mL oral solution mg PO 03/16/24 cholecalciferol (vitamin D3) 125 125 mcg PO DAILY 02/2006/01/25 mcg (5,000 unit) capsule Previous Rx's ?Medication ?Instructions ?Recorded ondansetron 4 mg disintegrating 4 mg PO Q8H PRN nausea and 03/31/25 tablet vomiting #10 tabs albuterol sulfate 2.5 mg/3 mL 2.5 mg (3 mL) inhalation Q6H PRN 05/02/25 (0.083 %) solution for nebulization shortness of breat h or wheezing #360 mL albuterol sulfate 90 mcg/actuation 2 puff inhalation Q 4-6H PRN 05/02/25 aerosol inhaler shortness of breath or wheez ing #8.5 grams nicotine (polacrilex) 4 mg gum 4 mg buccal Q2H PRN anayeli otine 05/17/25 (Nicorette) cravings #110 ea estradiol 2 mg tablet 2 mg PO DAILY #30 tabs 06/02 umeclidinium 62.5 mcg-vilanterol 1 inh inhalation TOM Y #60 ea 06/02/25 25 mcg/actuation powdr for inhalation (Anoro Ellipta) Allergies Allergy/AdvReac Type Severity Reaction Status Date / Time Iodinated Contrast Media Allergy Severe angioedema Verified 06/01/25 15:50 aspirin (ASPIRIN) Allergy Unknown Verified 06/01/25 15:50 codeine (CODEINE) Allergy Unknown Verified 06/01/25 15:50 orange juice (From ORANGE Allergy Unknown DIARRHEA Verified 06/01/25 15:50 JUICE (FOOD/DRUG)) Penicillins (PENICILLINS) Allergy Unknown SOB/CHEST Verified 06/01/25 15:50 TIGHTNESS propoxyphene (PROPOXYPHENE) Allergy Unknown Verified 06/01/25 15:50 venom-honey bee (BEE VENOM Allergy Unknown Verified 06/01/25 15:50 (HONEY BEE)) acetaminophen (From Percocet) Allergy Verified 06/01/25 15:50 amoxicillin Allergy Verified 06/01/25 15:50 oxycodone (From Percocet) Allergy Verified 06/01/25 15:50 ibuprofen (IBUPROFEN) AdvReac Unknown UPSET Verified 06/01/25 15:50 STOMACH promethazine (PROMETHAZINE) AdvReac Unknown MAKES HER Verified 06/01/25 15:50 THROW UP From RED DYE (FOOD/DRUG) Allergy Severe S-SWELLS-OR Uncoded 05/17/25 11:29 AL/THROAT GREEN JELLO Allergy Intermediate Uncoded 05/17/25 11:29 From ORANGE JUICE (FOOD/DRUG) Allergy Unknown DIARRHEA Uncoded 05/17/25 11:29 PFSH PFSH Disclaimer: The information contained in this section may have been updated after the patient was seen, as this information can be updated by other users. Medical History Nausea Smoking greater than 20 pack years Dyspnea on exertion Allergic rhinitis Influenza Encounter for cholecystectomy Gastritis Claustrophobia Pancreatitis COPD (chronic obstructive pulmonary disease) Asthma Surgical History History of appendectomy Hx of hand surgery left Previous section 2 H/O oophorectomy History of partial hysterectomy History of ankle surgery x2 Family History Mother Cancer lung Father Cancer brain, lung Grandmother , maternal Cancer colon Diabetes Grandfather , paternal Heart attack massive Family/Other Cancer aunt with colon cancer Social History Smoking Status: Current every day smoker tobacco type: cigarettes alcohol intake: never substance use type: denies use current occupational status: other Travel in the last 8 weeks?: None Have you lived/traveled outside US in past 30 days?: No Contact w/someone who lives/traveled outside US past 30 days?: No Exposure to someone with infectious disease in past 14 days?: No Do you have a fever (greater than 100.4 F or 38 C)?: No Have you tested positive for COVID-19?: No Exposed to someone with COVID-19 in past 14 days?: No Do you have a sore throat?: No Do you have a cough?: No Do you have any weakness?: No Do you have any diarrhea?: No Are you experiencing any unusual bleeding?: No Do you have any muscle aches/pain?: No Do you have any abdominal pain?: No Are you experiencing loss of taste or smell?: No Other Medical History Have you received the Flu Vaccine for this season: No Have you received the Pneumonia Vaccine: No ROS Obtained: Yes Systems reviewed as appropriate & no additional complaints except as documented Physical Exam General General appearance: alert Head Head exam: atraumatic Eye Eye exam: Present PERRL and EOMI Chest Chest inspection: Present normal inspection Respiratory Respiratory exam: Present normal lung sounds bilaterally Cardiovascular Cardiovascular exam: Present regular rate Extremities Exam Extremities exam: Present other (Left ankle instability, neurovascular status intact) Neurological Exam Neurological exam: Present alert and oriented X3 Medical Decision Making Medical Records Screening: Per USPSTF and CDC recommendations, given the prevalence of disease in our region, it is our hospital?s policy to screen for HIV and viral Hepatitis for all patients aged 18 and over and those with ongoing risk factors. Gage Inquiry Pt receiving controlled substance: No Vital Signs: 06/04/25 15:15 06/04/25 15:38 Temperature 98.1 F 98.1 F Temperature Source Oral Pulse Rate 81 Pulse Rate [Left] 86 Respiratory Rate 16 18 Blood Pressure 128/77 Blood Pressure [Left Arm] 121/79 Blood Pressure Mean [Left Arm] 93 02 Sat by Pulse Oximetry 99 Oxygen Delivery Method Room Air Medical Decision Narrative: In summary, patient is a 40-year-old female PMHx tobacco use, GERD, obesity, CRPS, left ankle instability, COPD who presents to the ED for complaints of left ankle pain. Patient states she has been evaluated for ankle pain multiple times, most recently had an MRI of her left ankle. Patient states she was seen by orthopedics and recently podiatry. Advised that podiatry told her to walk using her walking boot however to only walk on her tiptoes. Patient states that walking on her tiptoes is causing her ankle to hurt worse. She denies any new pain, change in pain, new injury. Patient states she called Dr. Delgado who advised her to come to the ED. Upon initial presentation patient is alert, oriented and cooperative. She is stable. Physical exam remarkable for lateral left lower extremity tenderness. She has full ROM. Left ankle instability noted. Neurovascular status intact. Records reviewed, podiatry note and orthopedic note reviewed. Advised patient that from what I can tell, she can use her walking boot like normal, advised her to call podiatry office Friday for further evaluation. He is agreeable to plan of care at this time. Discussed return precautions to the ED. Critical Care Critical Care Time Critical Care Time: No
[2025-06-04 15:38] VITALS: BP 128/77; PULSE 81; RESP 18; TEMP 36.7; O2SAT 97
== END 2025-06-04 15:39 | disposition home or self-care (01) ==
PROVIDERS: Emergency Provider Student in an Organized Health Care Education/Training Program; PCP Family Medicine
DX: M25.572 Pain in left ankle and joints of left foot (principal); F17.210 Nicotine dependence, cigarettes, uncomplicated
CPT/HCPCS: 99282

== ENCOUNTER 2025-06-23 14:09 | Outpatient (CLI) | payer OTHER, SELFPAY ==
--- OUTSIDE RECORDS SUMMARY | 2025-06-23 14:12 | XMS_ITS | Clinical Summary ---
Author Organization Healthcare Address [address] [place] [address] Care Team Providers Care Upholstery Cutter Name Role Phone Mickey John Ida METCALF Primary Care Provider [phone] Allergies Active Allergy Reactions Criticality Noted Date [...] tablet (20 mg). 4 Active nystatin (Mycostatin) 743152 UNIT/GM powder 2 (two) times a day. [...] 2011 [facility]-Cervical Cancer Screening 2014 [facility]-HPV/Cotest 2014 [id number] Vaccine ( - season) 2025 [facility]-Influenza Vaccine [...] patient's age to complete this topic Insurance [facility] MEDICAID Care Teams Upholstery Cutter Relationship Specialty Start Date End Date John Arevalo APRN [address] [place], [place] [phone] PCP - General 04/21/24
--- NOTE | 2025-06-23 14:15 | XR_ITS ---
FINAL REPORT CLINICAL HISTORY: Evaluatin of left foot talus stress fracture COMPARISON: 05/12/2025 FINDINGS: LEFT FOOT Three views of the left foot demonstrate no acute fracture or dislocation. The visualized joint spaces are normally aligned. The soft tissues are unremarkable. IMPRESSION: No acute bony abnormality. If clinical concern persists, MRI would be a more sensitive exam. Reviewed, Interpreted and Dictated by Puneet Ang MD Transcribed by Willow Pearson Authenticated and [facility]
== END 2025-06-23 23:59 | disposition home or self-care (01) ==
LOC: RAD 14:10
PROVIDERS: PCP Family Medicine; Visit Provider Nurse Practitioner
DX: M84.375A Stress fracture, left foot, initial encounter for fracture (principal)
CPT/HCPCS: 73630

== ENCOUNTER 2025-07-23 00:48 | Emergency (ER) | payer OTHER, SELFPAY ==
--- OUTSIDE RECORDS SUMMARY | 2025-07-23 00:53 | XMS_ITS | Clinical Summary ---
Author Organization Healthcare Address [address] [place] [address] Care Team Providers Care Inclusion Intern Name Role Phone Mickey John Ida METCALF Primary Care Provider [phone] Allergies Active Allergy Reactions Criticality Noted Date [...] tablet (20 mg). 4 Active nystatin (Mycostatin) 859630 UNIT/GM powder 2 (two) times a day. [...] 2011 [facility]-Cervical Cancer Screening 2014 [facility]HPV/Cotest 2014 YLE-SKJRR-29 Vaccine ( - season) 2025 [facility]-Influenza Vaccine [...] patient's age to complete this topic Insurance [facility] MEDICAID Care Teams Inclusion Intern Relationship Specialty Start Date End Date John Arevalo APRN [address] [place], [place] [phone] PCP - General 04/21/24
--- OUTSIDE RECORDS SUMMARY | 2025-07-23 00:53 | XMS_ITS | Data Portability ---
Author Organization [facility], [facility] Address [address] [place] [address] Assessment Encounter Date Assessment Date Assessment LastModified by Organization Details LastModified Time 05/07/2023 05/07/2023 RTC [address] Gordon. [email or web address] Not available 05/07/2023 10:07:16 08/04/2023 08/04/2023 RTC 3 months [email or web address] Not available 1 10/04/2022 14:33:00 Plan of Treatment Reminders Order Date Submit Date Provider Last Modified By Organization Details Last Modified Time Details Appointments None recorded. Lab C-reactive protein, quantitativ e, serum or plasma 2022 023 [facility], [address] [place], [address], 3 13:44:22 ESR (erythrocyt e sedimentati on rate), blood 2022 023 [facility], [address] [place], [address], 3 13:44:21 RIVERA (antinuclea r antibodies) screen, ifa, serum 2022 023 [facility], [address] [place], [address], 3 11:42:03 TSH + free T4, serum 2022 023 [facility], [address], [place], [address], 3 15:09:01 lipid panel, serum 2022 023 [facility], [address], [place], [address], 3 15:09:02 vitamin D, 25-hydroxy, total, serum 2022 023 [facility], [address], [place], [address], 3 15:09:00 vitamin B12 + folate, serum or blood 2022 023 [facility], [address], [place], [address], 3 15:09:01 lipid panel, serum [email or web address] [facility] [address] [facility], [address], [place], [address], 3 08:21:45 CMP, serum or plasma 2022 023 [facility], [address], [place], [address], 3 15:09:02 CBC w/ diff 2022 023 [facility], [address], [place], [address], 3 15:08:59 food allergen panel, serum 2022 023 [facility], [address], [place], [address], 3 18:22:28 hepatitis C virus Ab, serum 2022 023 [facility], [address], [place], [address], 3 18:22:27 HbA1c (hemoglobin A1c), blood 2022 023 [facility], [address], [place], [address], 3 15:08:59 HIV (1+2) Ab, rapid, unspecified specimen 2022 023 [facility], [address], [place], [address], 3 15:09:00 Referral None recorded. Procedures None recorded. Surgeries None recorded. Imaging XR, hand, 2 view 2022 023 [email or web address] [facility] [place], [address], [place], [address], 3 13:45:42 Medication Orders estradiol 2 mg tablet 2023 024 RUSLAN Not available 4 16:02:39 cetirizine 1 mg/mL oral solution 2023 024 RUSLAN Not available 4 14:44:38 Anoro Ellipta 62.5 mcg-25 mcg/actuati on powder for inhalation 2023 024 RUSLAN Not available 4 16:02:38 albuterol sulfate 2.5 mg/3 mL (0.083 %) solution for nebulizatio n 2023 024 RUSLAN Not available 4 16:02:37 Ventolin HFA 90 mcg/actuati on aerosol inhaler 2023 024 RUSLAN Not available 4 15:52:32 estradiol 2 mg tablet 2022 023 RUSLAN Not available 3 18:14:10 ProAir HFA 90 mcg/actuati on aerosol inhaler 2022 023 RUSLAN Not available 4 15:49:18 cetirizine 1 mg/mL oral solution 2022 023 RUSLAN Not available 3 15:23:47 estradiol 2 mg tablet 2022 023 RUSLAN Not available 3 13:11:23 cetirizine 1 mg/mL oral solution 2022 023 RUSLAN Not available 3 15:11:27 albuterol sulfate 2.5 mg/3 mL (0.083 %) solution for nebulizatio n 2022 023 RUSLAN Not available 3 15:11:27 Patient TargetsNo targets recorded. Patient Instructions Encounter Date Encounter Id Patient Instructions Last Modified By Organization Details Last Modified Time 11/26/2022 [id number] heart-healthy diet: care instructions Not available 11/27/2022 16:16:29 walking for exercise: care instructions Not available 11/27/2022 16:16:29 Reason for Referral None Reported. Results Created Date Observation Date Name Description Value Unit Range Abnormal Flag Note LastModifiedBy Organization Detail LastModifiedTime 11/27/1911/27/2022 CBC WBC 7.3 x10(3 )/uL 3.1 - 10.3 Not Available [facility] [address] [place], [address], 11/27/2022 15:08:59 11/27/19 23 11/27/2022 CBC RBC 4.23 x10(6 )/uL 3.20 - 4.60 Not Available [facility] [address] [place], [address], 11/27/2022 15:08:59 11/27/19 23 11/27/2022 CBC HGB 12.3 g/dL 9.9 - 13.6 Not Available [facility] [address] [place], [address], 11/27/2022 15:08:59 11/27/19 23 11/27/2022 CBC HCT 39.2 % 30.2 - 42.3 Not Available [facility] [address] [place], [address], 11/27/2022 15:08:59 11/27/19 23 11/27/2022 CBC MCV 92.7 fL 78.6 - 102.2 Not Available [facility] [address] [place], [address], 11/27/2022 15:08:59 11/27/19 23 11/27/2022 CBC MCH 29.1 pg 25.2 - 34.7 Not Available [facility] [address] [place], [address], 11/27/2022 15:08:59 11/27/19 23 11/27/2022 CBC MCHC 31.4 g/dL 31.3 - 35.4 Not Available [facility] [address] [place], [address], 11/27/2022 15:08:59 11/27/19 23 11/27/2022 CBC platelet count 388 % 128 - 434 Not Available [facility] [address] [place], [address], 11/27/2022 15:08:59 11/27/19 23 11/27/2022 CBC neut% 50.3 % 43.7 - 77.1 Not Available [facility] [address] [place], [place], [address], 11/27/2022 15:08:59 11/27/19 23 11/27/2022 CBC lymph% 31.1 % 15.0 - 45.8 Not Available [facility] [address] [place], [place], [address], 11/27/2022 15:08:59 11/27/19 23 11/27/2022 CBC mxd% 18.6 % 1.3 - 25.9 Not Available [facility] [address], [place], [place], [address], 11/27/2022 15:08:59 11/27/19 23 11/27/2022 CBC neut# 3.6 x10(3 )/uL 1.6 - 6.9 Not Available [facility] [address] [place], [place], [address], 11/27/2022 15:08:59 11/27/19 23 11/27/2022 CBC lymph# 2.3 x10(3 )/uL 0.9 - 2.8 Not Available [facility] [address] [place], [place], [address], 11/27/2022 15:08:59 11/27/19 23 11/27/2022 CBC mxd# 1.4 x10(3 )/uL 0.1 - 1.6 Not Available [facility] [address], [place], [address], 11/27/2022 15:08:59 11/27/19 23 11/27/2022 CBC RDW-SD 48.5 fL 35.3 - 48.9 Not Available [facility] [address], [place], [address], 11/27/2022 15:08:59 11/27/19 23 11/27/2022 CBC RDW-CV 13.2 % 10.6 - 15.7 Not Available [facility] [address] [place], [address], 11/27/2022 15:08:59 11/27/19 23 11/27/2022 CBC MPV 8.3 fL 8.5 - 12.4 low Not Available [facility] [address] [place], [address], 11/27/2022 15:08:59 11/27/19 23 11/27/2022 HGBA1 C HGBA1C 5.4 % 4.0 - 6.0 non-d iabet ic range : 4-6% ADA Targe t:<7% Above Targe t: 8-12% non-d iabet ic range : 4-6% ADA Targe t:<7% Above Targe t: 8-12% Not Available [facility] [address] [place], [address], 11/27/2022 15:08:59 11/27/19 23 11/27/2022 RAPID HIV 1/2 AB rapid HIV 1/2 Ab Negati ve Not Available [facility] [address] [place], [address], 11/27/2022 15:09:00 11/27/19 23 11/27/2022 VITAM IN D TOTAL vitamin D total 20.7 NG/mL 29.0 - 100.0 low Not Available [facility] [address] [place], [address], 11/27/2022 15:09:00 11/27/19 23 11/27/2022 VITAM IN B12 folate 9.73 NG/mL 2.76 - 19.50 Not Available [facility] [address] [place], [address], 11/27/2022 15:09:01 11/27/19 23 11/27/2022 VITAM IN B12 vitamin B12 307 pg/mL 239 - 931 Not Available [facility] [address] [place], [address], 11/27/2022 15:09:01 11/27/19 23 11/27/2022 TSH free T4 1.14 NG/mL 0.88 - 2.19 Not Available [facility] [address] [place], [address], 11/27/2022 15:09:01 11/27/19 23 11/27/2022 TSH TSH 0.841 mIU/L 0.465 - 4.680 Not Available [facility] [address] [place], [address], 11/27/2022 15:09:01 11/27/19 23 11/27/2022 COMPR EHENS JUNE METAB OLIC PANEL (CMP) albumin 4.3 g/dL 3.5 - 5.0 Not Available [facility] [address] [place], [address], 11/27/2022 15:09:02 11/27/19 23 11/27/2022 COMPR EHENS JUNE METAB OLIC PANEL (CMP) chloride 101 mmol/ L 98 - 107 Not Available [facility] [address] [place], [address], 11/27/2022 15:09:02 11/27/19 23 11/27/2022 COMPR EHENS JUNE METAB OLIC PANEL (CMP) creatinine 0.65 mg/dL 0.52 - 1.04 Not Available [facility] [address] [place], [address], 11/27/2022 15:09:02 11/27/19 23 11/27/2022 COMPR EHENS JUNE METAB OLIC PANEL (CMP) eco2 31 mmol/ L 22 - 30 high Not Available [facility] [address] [place], [address], 11/27/2022 15:09:02 11/27/19 23 11/27/2022 COMPR EHENS JUNE METAB OLIC PANEL (CMP) glucose 99 mg/dL 74 - 106 Not Available [facility] [address] [place], [address], 11/27/2022 15:09:02 11/27/19 23 11/27/2022 COMPR EHENS JUNE METAB OLIC PANEL (CMP) potassium 4.30 mmol/ L 3.50 - 5.10 Not Available [facility] [address] [place], [address], 11/27/2022 15:09:02 11/27/19 23 11/27/2022 COMPR EHENS JUNE METAB OLIC PANEL (CMP) alkaline phos 87 U/L 38 - 126 Not Available [facility] [address] [place], [address], 11/27/2022 15:09:02 11/27/19 23 11/27/2022 COMPR EHENS JUNE METAB OLIC PANEL (CMP) sodium 138.0 mmol/ L 137.0 - 145.0 Not Available [facility] [address] [place], [address], 11/27/2022 15:09:02 11/27/19 23 11/27/2022 COMPR EHENS JUNE METAB OLIC PANEL (CMP) total bilirubin <0.45 mg/dL 0.2 - 1.3 Not Available [facility] [address] [place], [address], 11/27/2022 15:09:02 11/27/19 23 11/27/2022 COMPR EHENS JUNE METAB OLIC PANEL (CMP) total protein 7.6 g/dL 6.3 - 8.2 Not Available [facility] [address] [place], [address], 11/27/2022 15:09:02 11/27/19 23 11/27/2022 COMPR EHENS JUNE METAB OLIC PANEL (CMP) ALT 22 U/L 0 - 35 Not Available [facility] [address] [place], [address], 11/27/2022 15:09:02 11/27/19 23 11/27/2022 COMPR EHENS JUNE METAB OLIC PANEL (CMP) BUN/urea 13 mg/dL 7 - 17 Not Available [facility] [address] [place], [address], 11/27/2022 15:09:02 11/27/19 23 11/27/2022 COMPR EHENS JUNE METAB OLIC PANEL (CMP) eGFR 108 mL/mi n/1.7 3m2 >60 *eGFR Refer ence Value s Shagufta l: >60 mL/mi n/1.7 3m2 Abnor mal: < 60 mL/mi n/1.7 3m2 *eGFR Refer ence Value s Shagufta l: >60 mL/mi n/1.7 3m2 Abnor mal: < 60 mL/mi n/1.7 3m2 Not Available [facility] [address] [place], [address], 11/27/2022 15:09:02 11/27/19 23 11/27/2022 COMPR EHENS JUNE METAB OLIC PANEL (CMP) A/G ratio 1.3 (calc ) 1.0 - 2.5 Not Available [facility] [address] [place], [address], 11/27/2022 15:09:02 11/27/19 23 11/27/2022 COMPR EHENS JUNE METAB OLIC PANEL (CMP) globulin 3.3 g/dL_ (calc ) 1.9 - 3.7 Not Available [facility] [address] [place], [address], 11/27/2022 15:09:02 11/27/19 23 11/27/2022 COMPR EHENS JUNE METAB OLIC PANEL (CMP) calcium 9.4 mg/dL 8.9 - 10.7 Not Available [facility] [address] [place], [address], 11/27/2022 15:09:02 11/27/19 23 11/27/2022 COMPR EHENS JUNE METAB OLIC PANEL (CMP) AST 21 U/L 14 - 36 Not Available [facility] [address] [place], [address], 11/27/2022 15:09:02 11/27/19 23 11/27/2022 LIPID PANEL VLDL (calculated) 19 mg/dL (calc ) 0 - 30 Not Available [facility] [address] [place], [address], 11/27/2022 15:09:02 11/27/19 23 11/27/2022 LIPID PANEL direct HDL 68 mg/dL 40 - 60 high Not Available [facility] [address] [place], [place], [address], 11/27/2022 15:09:02 11/27/19 23 11/27/2022 LIPID PANEL triglyceride s 93.0 mg/dL 0.0 - 199.0 Not Available [facility] [address] [place], [address], 11/27/2022 15:09:02 11/27/19 23 11/27/2022 LIPID PANEL cholesterol 216 mg/dL 0 - 200 high Not Available [facility] [address] [place], [address], 11/27/2022 15:09:02 11/27/19 23 11/27/2022 LIPID PANEL chol/DHDL ratio 3 %_(ca lc) 0 - 5 Not Available [facility] [address] [place], [address], 11/27/2022 15:09:02 11/27/19 23 11/27/2022 LIPID PANEL LDL (calculated) 129 mg/dL 0 - 100 high Not Available [facility] [address] [place], [address], 11/27/2022 15:09:02 11/27/19 23 11/29/2022 INTER PRETA TION interpretati on See Notes Speci fic Level of Aller gen IGE Class kU/L Speci fic IGE Antib jaciel ----- ----- ---- ----- ----- ----- ---- 0 <0.10 Absen t/Und etect able 0/1 0.10- 0.34 Very Low Level 1 0.35- 0.69 Low Level 2 0.70- 3.49 Moder ate Level 3 3.50- 17.4 High Level 4 17.5- 49.9 Very High Level 5 50-10 0 Very High Level 6 >100 Very High Level The clini tammy relev ance of aller gen resul ts of 0.10- 0.34 kU/L are undet ermin ed and inten ded for speci alist use. Aller gens denot ed with a inclu de resul ts using one or more alexis te speci fic reage nts. In those cases , the test was devel oped and its alexis tical perfo rmanc e ines cteri stics have been deter mined by [facility] moreno. It has not been clear ed or appro chetan by the U.S. Food and Drug Admin istra tion. This assay has been valid ated pursu ant to the CLIA regul ation s and is used for clini tammy purpo ses. Not Available [facility] [address] [place], [address], 11/29/2022 18:22:27 11/27/19 23 11/29/2022 HEPAT ITIS C AB W/REF L TO HCV RNA, QN, PCR (REFL ) hepatitis C antibody (refl) NON-RE ACTIVE non-re active normal Our recor ds indic ate that you have order ed a clien t custo m refle x order code. Only the initi al test was perfo rmed becau se we do not have a clien t custo m refle x testi ng autho rizat ion reque st form on file for you. Pleas e conta ct a clien t servi ce repre senta tive if you would like addit ional testi ng done on this patie nt or conta ct your sales repre senta tive to obtai n a clien t custo m refle x testi ng autho rizat ion reque st form. Not Available [facility] [address] [place], [address], 11/29/2022 18:22:27 11/27/19 23 11/29/2022 HEPAT ITIS C AB W/REF L TO HCV RNA, QN, PCR (REFL ) index 0.12 <1.00 normal HCV antib jaciel was non-r eacti ve. There is no labor atory evide nce of HCV infec tion. In most cases , no furth er actio n is requi red. Howev er, if recen t HCV expos ure is suspe cted, a test for HCV RNA (test code 25708 ) is sugge sted. For addit ional infor matio n pleas e refer to http: //[facility] cat[facility] n.que stdia gnost ics.c om/fa q/FAQ 22v1 (This link is being provi ded for infor matio nal/ educa lorenzo l purpo ses only. ) Not Available [facility] [address], [place], [place], [address], 11/29/2022 18:22:27 11/27/19 23 11/29/2022 FOOD ALLER GY PANEL (REFL ) clam (F207) IgE <0.10 kU/L normal Not Available [facility] [address], [place], [place], [address], 11/29/2022 18:22:28 11/27/19 23 11/29/2022 FOOD ALLER GY PANEL (REFL ) class 0 Not Available [facility] [address] [place], [place], [address], 11/29/2022 18:22:28 11/27/19 23 11/29/2022 FOOD ALLER GY PANEL (REFL ) class 0 Not Available [facility] [address], [place], [place], [address], 11/29/2022 18:22:28 11/27/19 23 11/29/2022 FOOD ALLER GY PANEL (REFL ) class 0 Not Available [facility] [address], [place], [place], [address], 11/29/2022 18:22:28 11/27/19 23 11/29/2022 FOOD ALLER GY PANEL (REFL ) class 0 Not Available [facility] [address], [place], [address], 11/29/2022 18:22:28 11/27/19 23 11/29/2022 FOOD ALLER GY PANEL (REFL ) class 0 Not Available [facility] [address], [place], [address], 11/29/2022 18:22:28 11/27/19 23 11/29/2022 FOOD ALLER GY PANEL (REFL ) class 0 Not Available [facility] [address] [place], [address], 11/29/2022 18:22:28 11/27/19 23 11/29/2022 FOOD ALLER GY PANEL (REFL ) class 0 Not Available [facility] [address] [place], [address], 11/29/2022 18:22:28 11/27/19 23 11/29/2022 FOOD ALLER GY PANEL (REFL ) class 0 Not Available [facility] [address] [place], [address], 11/29/2022 18:22:28 11/27/19 23 11/29/2022 FOOD ALLER GY PANEL (REFL ) class 0 Not Available [facility] [address] [place], [place], [address], 11/29/2022 18:22:28 11/27/19 23 11/29/2022 FOOD ALLER GY PANEL (REFL ) class 0 Not Available [facility] [address] [place], [address], 11/29/2022 18:22:28 11/27/19 23 11/29/2022 FOOD ALLER GY PANEL (REFL ) class 0 Not Available [facility] [address] [place], [address], 11/29/2022 18:22:28 11/27/19 23 11/29/2022 FOOD ALLER GY PANEL (REFL ) class 0 Not Available [facility] [address] [place], [place], [address], 11/29/2022 18:22:28 11/27/19 23 11/29/2022 FOOD ALLER GY PANEL (REFL ) codfish (F3) IgE <0.10 kU/L normal Not Available [facility] [address] [place], [address], 11/29/2022 18:22:28 11/27/19 23 11/29/2022 FOOD ALLER GY PANEL (REFL ) cow's milk (F2) IgE <0.10 kU/L normal Not Available [facility] [address] [place], [address], 11/29/2022 18:22:28 11/27/19 23 11/29/2022 FOOD ALLER GY PANEL (REFL ) egg white (F1) IgE <0.10 kU/L normal Not Available [facility] [address] [place], [address], 11/29/2022 18:22:28 11/27/19 23 11/29/2022 FOOD ALLER GY PANEL (REFL ) maize/corn (F8) IgE <0.10 kU/L normal Not Available [facility] [address] [place], [address], 11/29/2022 18:22:28 11/27/19 23 11/29/2022 FOOD ALLER GY PANEL (REFL ) peanut (F13) IgE <0.10 kU/L normal Not Available [facility] [address] [place], [address], 11/29/2022 18:22:28 11/27/19 23 11/29/2022 FOOD ALLER GY PANEL (REFL ) scallop (F338) IgE <0.10 kU/L normal Not Available [facility] [address] [place], [address], 11/29/2022 18:22:28 11/27/19 23 11/29/2022 FOOD ALLER GY PANEL (REFL ) sesame seed (F10) IgE <0.10 kU/L normal Not Available [facility] [address] [place], [address], 11/29/2022 18:22:28 11/27/1911/29/2022 FOOD ALLER GY PANEL (REFL ) shrimp (F24) IgE <0.10 kU/L normal Not Available [facility] [address] [place], [address], 11/29/2022 18:22:28 11/27/19 23 11/29/2022 FOOD ALLER GY PANEL (REFL ) soybean (F14) IgE <0.10 kU/L normal Not Available [facility] [address] [place], [address], 11/29/2022 18:22:28 11/27/19 23 11/29/2022 FOOD ALLER GY PANEL (REFL ) walnut (F256) IgE <0.10 kU/L normal Not Available [facility] [address] [place], [address], 11/29/2022 18:22:28 11/27/19 23 11/29/2022 FOOD ALLER GY PANEL (REFL ) wheat (F4) IgE <0.10 kU/L normal Not Available [facility] [address] [place], [address], 11/29/2022 18:22:28 12/12/19 23 12/12/2022 SED RATE sed rate 15 mm/HR 0 - 20 Not Available [facility] [address] [place], [address], 12/12/2022 13:44:21 12/12/19 23 12/12/2022 CRP CRP 6.4 mg/L 5.1 - 10.0 Not Available [facility] [address] [place], [address], 12/12/2022 13:44:22 12/12/19 23 12/16/2022 RIVERA SCR, IFA, W/REF L TITER /AMANDA STEVE/R HEUMA TOID ARTHR ITIS PANEL 1 RIVERA screen, ifa POSITI VE negati ve abnormal RIVERA IFA is a first line scree n for detec ting the prese nce of up to appro ximat edda 150 autoa ntibo dies in vario us autoi mmune disea ses. A posit june RIVERA IFA resul t is sugge stive of autoi mmune disea se and refle xes to titer and vasiliy rn. Furth er labor atory testi ng may be consi dered if clini milton indic ated. For addit ional infor reid villagran e refer to http: //[facility].Demetrius stDia gnost ics.c om/fa q/FAQ 177 (This link is being provi ded for infor jose chris/ educmary kay puckett purpo ses only. ) Not Available [facility] [address] [place], [address], 12/16/2022 11:42:03 12/12/19 23 12/16/2022 RIVERA SCR, IFA, W/REF L TITER /AMANDA STEVE/R HEUMA TOID ARTHR ITIS PANEL 1 cyclic citrullinate d peptide (ccp) Ab (IgG) <16 units normal Refer ence Range Negat june: <20 Weak Posit june: 20-39 Moder ate Posit june: 40-59 Stron g Posit june: >59 Not Available [facility] [address] [place], [address], 12/16/2022 11:42:03 12/12/19 23 12/16/2022 RIVERA SCR, IFA, W/REF L TITER /AMANDA STEVE/R HEUMA TOID ARTHR ITIS PANEL 1 interpretati on See Notes A posit june RIVERA, IFA indic ates that one or more antib odies assoc iated with conne ctive tissu e disea se could be posit june. The RF and CCP assay s are each 65-70 % sensi tive for estab lishe d rheum atoid arthr itis. While it is still possi ble that this patie nt has rheum atoid arthr itis, other conne ctive tissu e disea ses shoul d be consi dered . Not Available [facility] [address] [place], [id number], 12/16/2022 11:42:03 12/12/19 23 12/16/2022 RIVERA SCR, IFA, W/REF L TITER /AMANDA STEVE/R HEUMA TOID ARTHR ITIS PANEL 1 rheumatoid factor <14 IU/mL <14 normal Not Available [facility] [address] [place], [address], 12/16/2022 11:42:03 12/12/19 23 12/16/2022 ANTIN UCLEA R ANTIB ODIES TITER AND PATTE RN RIVERA pattern Cytopl asmic abnormal The prese nce of cytop lasmi c fluor escen ce was noted on the HEp-2 slide . Other react iviti es (e.g. , anti- mitoc hondr ial antib odies or anti- rodolfo h muscl e antib odies ) may be respo nsibl e for this fluor escen ce. The clini tammy signi fican ce of this findi ng is uncer tain. Clini tammy corre latio n is recom sofi d. AC-15 to AC-23 : Cytop lasmi c Inter natio nal Conse nsus on RIVERA Patte rns ([email or web address] [email or web address] [email or web address]/ [facility]- 2017- 0052) Not Available [facility] [address] [place], [id number], 12/16/2022 11:42:04 12/12/19 23 12/16/2022 ANTIN UCLEA R ANTIB ODIES TITER AND PATTE RN RIVERA titer 1:40 titer high A low level RIVERA titer may be prese nt in pre-c linic al autoi mmune disea ses and shagufta l indiv idual s. Refer ence Range <1:40 Negat june 1:40- 1:80 Low Antib jaciel Level >1:80 [place] calos Antib jaciel Level Not Available [facility] [address], [place], [address], 12/16/2022 11:42:04 11/27/19 23 11/26/2022 XR, hand, 2 view No observ ation record ed. [email or web address] [facility] [place] [address], [place], [address], 11/27/2022 12:31:00 11/28/19 23 11/26/2022 XR, hand, 2 view No observ ation record ed. [email or web address] [facility] [place] [address], [place], [address], 12/11/2022 15:06:44 Result Notes None recorded. Problems Name Problem SNOMED Code Status Onset Date Resolution Date Notes Provider Name and Address Organization Details Recorded Time Mild intermitten t asthma 909488092 Active 2018 Андрей Gordon MD [address], [address], [facility] 9 15:52:32 Chronic obstructive pulmonary disease 02626730 Active 2018 Андрей Gordon MD [address], [address], [facility] 9 15:52:32 Hormone replacement therapy Active 2019 ELISA ROB NP [address], [address], [facility] 0 09:45:23 Diet education Active [address], [address], [facility] 0 10:54:54 Exercises education, guidance, and counseling Active 2019 LINWOOD VENTURA, MATIAS [address], [address], [facility] 0 10:55:03 Body mass index 25-29 - overweight 622085457 Active 2019 LINWOOD VENTURA, MATIAS [address], [address], [facility] 0 10:55:23 Tobacco dependence 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 2564998265810 9107 Active 2019 LINWOOD VENTURA, MATIAS [address], [address], [facility] 0 10:55:39 Edema of lower extremity 855721869 Active 2019 ELISA ROB NP [address], [address], [facility] 0 12:14:09 Pain in left knee Active 2019 ELISA ROB NP [address], [address], [facility] 0 12:14:10 Seasonal allergic rhinitis 055107919 Active 2019 ELISA ROB NP [address], [address], [facility] 0 11:16:17 Problem Notes None recorded. Procedures Surgical History Date Name Laterality Status Provider Name and Address Organization Details Recorded Time 12/12/19 23 venipuncture completed Randee Mcneal [facility] 12/11/2022 15:50:44 04/17/20 22 venipuncture completed Randee Mcneal [facility] 04/17/2022 10:38:39 06/01/20 21 venipuncture completed Agata Liang [facility] 06/01/2021 12:51:43 08/02/20 19 venipuncture completed Jessica Machuca [facility] 08/02/2019 16:32:59 09/27/19 19 Total hysterectomy completed Андрей Gordon MD [address] [place] [address], [address], [facility] 08/02/2019 15:47:47 09/27/19 19 Appendectomy completed Андрей Gordon MD [address] [place] [address], [address], [facility] 08/02/2019 15:49:35 08/29/20 18 oophorectomy completed Андрей Gordon MD [address] [place] [address], [address], [facility] 08/02/2019 15:48:34 02/26/20 08 section completed Андрей Gordon MD [address] [place] [address], [address], [facility] 08/02/2019 15:51:16 10/11/19 07 section completed Андрей Gordon MD [address] [place] [address], [address], [facility] 08/02/2019 15:50:31 hysterectomy completed Chandan Bob [facility] 08/02/2019 15:26:47 Imaging Results None recorded. Procedure Notes None recorded. Medical Equipment None Reported. Allergies Allergen ID Allergen Name Allergen Category Reaction Reaction Severity Criticality Documentation Date Start Date Code Code System Note Provider Name and Address Organization Details Recorded Time 63832 Phenergan medicatio n decreased blood pressure Not available Not available 08/02/2019 10575 8 RxNorm Chandan Bob [facility] 9 15:17:50 69755 ibuprofen medicatio n rash Not available Not available 08/02/2019 5640 RxNorm Chandan Bob [facility] 9 15:18:03 56264 acetamino phen / oxycodone medicatio n respirato ry distress Not available Not available 08/02/2019 65863 3 RxNorm Chandan Bob [facility] 9 15:18:21 19312 influenza virus vaccine, specific Not available rash Not available Not available 08/02/2019 Chandan torres [facility] 9 15:33:09 97352 tramadol medicatio n Not available Not available Not available 08/02/2019 12750 RxNorm Chandan torres [facility] 9 15:36:54 16830 Darvocet- N medicatio n Not available Not available Not available 08/02/2019 Chandan torres [facility] 9 15:37:02 20485 aspirin medicatio n Not available Not available Not available 08/02/2019 1191 RxJessee torres [facility] 9 15:37:14 09784 Tylenol with Codeine medicatio n Not available Not available Not available 08/02/2019 86842 6 RxNorm Chandan torres [facility] 9 15:37:29 33126 Product containin g glucocort icoid (product) medicatio n Not available Not available Not available 08/02/2019 39324 6006 [facility] 15:37:54 16586 honey bee venom medicatio n Not available Not available Not available 08/02/2019 80870 7 RxNorm Chandan torres [facility] 9 15:38:05 94072 red dye food,medi cation Not available Not available Not available 08/02/2019 Chandan torres [facility] 9 15:38:13 70662 orange juice food,medi cation Not available Not available Not available 08/02/2019 65969 66 ShenaNolenin torres [facility] 9 15:38:26 55545 naproxen medicatio n Not available Not available Not available 08/02/2019 7258 RxNorm Chandan torres [facility] 9 15:38:32 83471 amoxicill in medicatio n Not available Not available Not available 08/02/2019 723 RxNorm Chandan Bob [facility] 9 15:38:39 69553 Product containin g penicilli n (product) medicatio n Not available Not available Not available 08/04/2023 34081 8001 SNOMED Krysten Jose-Mo rris [facility] 3 14:26:04 Medications Name Sig Start Date Stop Date Status Note LastModified by Organization Details LastModified Time nebulizer (drive) USE DIRECTED active Not Available Not Available No t Available neomycin-po lymyxin-hyd rocort 3.5 mg/mL-10,00 0 unit/mL-1 % ear solution 06/01 completed Not Available Not Available Not Available albuterol sulfate 2.5 mg/3 mL (0.083 %) solution for nebulizatio n USE 1 VIAL IN NEBULIZER AND INHALE BY MOUTH THREE TIMES DAILY NEEDED active Not Available Not Available No t Available azithromyci n 250 mg tablet 06/01 completed Not Available Not Available Not Available potassium chloride ER 10 mEq tablet,exte nded release Take 1 tablet every day by oral route as needed. 06/01 completed Not Available Not Available Not Available phenazopyri dine 100 mg tablet TAKE 1 TABLET 3 TIMES A DAY BY ORAL ROUTE FOR 10 DAYS. 04/17 completed Not Available Not Available Not Available hydrocodone 7.5 mg-acetamin ophen 325 mg tablet TAKE 1 TABLET BY MOUTH EVERY 6 HOURS NEEDED FOR PAIN active Not Available Not Available No t Available neomycin-po lymyxin-dex ameth 3.5 mg/mL-10,00 0 unit/mL-0.1 % eye drops INSTILL 1 DROP INTO LEFT EYE 4 TIMES DAILY FOR 10 DAYS 04/17 completed Not Available Not Available Not Available orphenadrin e citrate ER 100 mg tablet,exte nded release TAKE 1 TABLET BY MOUTH TWICE DAILY FOR 7 DAYS active Not Available Not Available No t Available estradiol 2 mg tablet TAKE ONE TABLET BY MOUTH EVERY MORNING active Not Available Not Available No t Available diclofenac sodium 50 mg tablet,chandler yed release Take 1 tablet twice a day by oral route. 06/01 completed Not Available Not Available Not Available furosemide 20 mg tablet Take 1 tablet every day by oral route as needed. 06/01 completed Not Available Not Available Not Available ergocalcife rol (vitamin D2) 1,250 mcg (50,000 unit) capsule Take 1 capsule every week by oral route. 2022 active Not Available Not Available Not Avai lable methylpredn isolone 4 mg tablets in a dose pack TAKE BY MOUTH DIRECTED ON INSIDE OF PACKAGE active Not Available Not Available No t Available Vitamin C 250 mg tablet TAKE 1 TABLET BY MOUTH DAILY active Not Available Not Available No t Available cefdinir 300 mg capsule Take 1 capsule every 12 hours by oral route for 10 days. 04/17 completed Not Available Not Available Not Available Ventolin HFA 90 mcg/actuati on aerosol inhaler Inhale 2 puffs every 4 hours by inhalatio n route as needed. 2023 active Not Available Not Available Not Avai lable neomycin-po lymyxin-hyd rocort 3.5 mg-10,000 unit/mL-1 % ear drops,susp INSTILL 4 DROPS INTO AFFECTED EAR(S) BY OTIC ROUTE 3 TIMES PER DAY 04/17 completed Not Available Not Available Not Available cholecalcif abram (vitamin D3) 25 mcg (1,000 unit) capsule TAKE 3 CAPSULES BY MOUTH DAILY active Not Available Not Available No t Available cyclobenzap rine 5 mg tablet TAKE 1 TABLET BY MOUTH THREE TIMES DAILY NEEDED active Not Available Not Available No t Available potassium chloride ER 10 mEq tablet,exte nded release(par t/cryst) 06/01 completed Not Available Not Available Not Available nitrofurant oin monohydrate /macrocryst als 100 mg capsule TAKE 1 CAPSULE EVERY 12 HOURS BY ORAL ROUTE FOR 10 DAYS. 04/17 completed Not Available Not Available Not Available cetirizine 1 mg/mL oral solution TAKE 2 TEASPOONF ULS (10ML) BY MOUTH DAILY active Not Available Not Available No t Available Anoro Ellipta 62.5 mcg-25 mcg/actuati on powder for inhalation INHALE 1 PUFF BY MOUTH DAILY active Not Available Not Available No t Available albuterol sulf 90 mcg/actuati on breath activated powder inhaler,sen sor Inhale 2 puffs every 4 hours by inhalatio n route. 08/02 completed Not Available Not Available Not Available Vitals Date Recorded Body height Body mass index (BMI) Body weight Respiratory rate Body temperature Heart rate Oxygen saturation Oxygen saturation in Arterial blood by Pulse oximetry Systolic And Diastolic Provider Name and Address Organization Details Last Updated DateTime 4 167.64 cm 35.5 kg/m2 96237.6 g 16 /min 98.4 [degF] 80 /min 98 % 98 % 122/82 mm[Hg] Elisa Angie [facility] 4 15:20:37 Date Recorded Body weight Body mass index (BMI) Body height Respiratory rate Body temperature Heart rate Oxygen saturation Oxygen saturation in Arterial blood by Pulse oximetry Systolic And Diastolic Provider Name and Address Organization Details Last Updated DateTime 3 31095.6 5 g 32.8 kg/m2 167.64 cm 18 /min 98.6 [degF] 80 /min 100 % 100 % 124/72 mm[Hg] Krysten [facility] 3 14:31:31 Date Recorded Body height Body mass index (BMI) Body weight Respiratory rate Body temperature Heart rate Oxygen saturation Oxygen saturation in Arterial blood by Pulse oximetry Systolic And Diastolic Provider Name and Address Organization Details Last Updated DateTime 3 167.64 cm 32.6 kg/m2 85012.3 6 g 18 /min 98.7 [degF] 78 /min 99 % 99 % 120/86 mm[Hg] Ericka Naylor [facility] 3 09:46:48 Date Recorded Body height Body mass index (BMI) Body weight Body temperature Respiratory rate Oxygen saturation Oxygen saturation in Arterial blood by Pulse oximetry Heart rate Systolic And Diastolic Provider Name and Address Organization Details Last Updated DateTime 3 167.64 cm 34.1 kg/m2 86149.6 9 g 98 [degF] 18 /min 97 % 97 % 98 /min 132/78 mm[Hg] Krysten [facility] 3 14:22:51 Social History Question Answer Notes LastModified by Organizat ion Details LastModified Time Tobacco Smoking Status Former Smoker Pt reports 05/01/22 that she quit smoking 4 months ago. LINWO[address] V[address]URA, RD [address], [address], [facility] 05/01/2022 12:55:18 Do You Have An Advance Directive? No Information not available 08/02/2019 Do You Wear A Helmet When Biking? No [email or web address] Information not available 06/01/2021 Are You Blind Or Do You Have Difficulty Seeing? No [email or web address] Information not available 06/01/2021 Is Blood Transfusion Acceptable In An Emergency? No Information not available 06/01/2021 What Is Your Level Of Caffeine Consumption? Occasional [email or web address] Information not available 05/19/2020 How Much Tobacco Do You Chew? None Information not available 08/02/2019 Commercial Sex Work No Information not available 08/02/2019 In The 14 Days Before Symptom Onset, Have You Had Close Contact With A Laboratory-confi rmed COVID-19 While That Case Was Ill? No [email or web address] Information not available 05/19/2020 In The 14 Days Before Symptom Onset, Have You Had Close Contact With A Person Who Is Under Investigation For COVID-19 While That Person Was Ill? No Information not available 05/19/2020 Have You Been To An Area Known To Be High Risk For COVID-19? No [email or web address] Information not available 05/19/2020 Are You Deaf Or Do You Have Serious Difficulty Hearing? No [email or web address] Information not available 06/01/2021 What Type Of Diet Are You Following? REGULAR Information not available 08/02/2019 Which Illicit Or Recreational Drugs Have You Used? Denies [email or web address] Information not available 06/01/2021 Have You Processed Blood Or Body Fluids From An Ebola Virus Disease Patient Without Appropriate PPE? No [email or web address] Information not available 06/01/2021 Education 12 Information no t available 08/02/2019 What Is The Highest Grade Or Level Of School You Have Completed Or The Highest Degree You Have Received? [id number] [email or web address] Information not available 06/01/2021 Are There Any Guns Present In Your Home? Yes Information not available 08/02/2019 Hard Of Hearing Or Deaf In One Or Both Ears? No Information not available 08/02/2019 High Number Of Sexual Partners No Information not available 08/02/2019 History Of Inconsistent/no Condom Use No Information not available 08/02/2019 How Many Years Have You Used Illicit Or Recreational Drugs? 0 [email or web address] Information not available 04/17/2020 International Travel None Information not available 08/02/2019 Legally Blind In One Or Both Eyes? No Information not available 08/02/2019 In The Past 6 Months Have You Fallen No Information not available 08/02/2019 Have You Ever Been Tested For Hepatitis C No Information not available 08/02/2019 Have You Had A Blood Transfusion Before 1991? No Information not available 08/02/2019 Have You Had Assisted Dialysis? No Information not available 08/02/2019 Have You Ever Used Injectable Drugs, Even Once? No Information not available 08/02/2019 Do You Have Tattoos Or Body Piercings? Yes Information not available 08/02/2019 Have You Had Close Contact With An Individual With Hepatitis C? No Information not available 08/02/2019 Have You Ever Had Sex For Drugs Or Money? No Information not available 08/02/2019 Have You Ever Had Unprotected Sex? Yes Information not available 08/02/2019 Have You Been Incarcerated For Longer Than 6 Months? No Information not available 08/02/2019 Have You Tested Positive For HIV? No Information not available 08/02/2019 Do You Have A History Of Fist Fighting Or Combat Experience? No Information not available 08/02/2019 Medication List Reconciled Yes Information not available 08/02/2019 What Number (0-10) Best Describes How, During The Past Week, Has Interfered With Your General Activity? 9 Information not available 04/17/2022 What Number (0-10) Best Describes How, During The Past Week, Pain Has Interfered With Your Enjoyment In The Past Week 9 [email or web address] Information not available 04/17/2022 What Number (0-10) Best Describes Your Pain On Average In The Past Week 9 Information not available 04/17/2022 Total PEG Score 27 [email or web address] Informat ion not available 04/17/2022 Sexual Orientation Straight Or Heterosexual Information not available 08/02/2019 Gender Identity Female Informati on not available 08/02/2019 Do You Feel Safe Yes Informat ion not available 08/02/2019 Marital Status Informatio n not available 08/02/2019 What Was The Date Of Your Most Recent Tobacco Screening? 11/06/2023 [email or web address] Information not available 11/06/2023 Mother With HIV? No Informat ion not available 08/02/2019 Do You Use Protection During Sex? No [email or web address] Information not available 06/01/2021 What Is Your Relationship Status? Single [email or web address] Information not available 06/01/2021 Do You Use Your Seat Belt Or Car Seat Routinely? Yes [email or web address] Information not available 06/01/2021 Seat Belts Used Routinely Yes Information not available 08/02/2019 Are You Sexually Active? Yes Information not available 08/02/2019 Sexual Partner Has HIV? No Information not available 08/02/2019 Sexual Partner Uses IV Drugs? No Information not available 08/02/2019 Smoke Alarm In Home Yes Information not available 08/02/2019 At What Age Did You Start Smoking Tobacco? 15 Information not available 08/02/2019 How Much Tobacco Do You Smoke? No [email or web address] Information not available 04/17/2022 General Stress Level Low Information not available 08/02/2019 Do You Use Sunscreen Routinely? No Information not available 08/02/2019 How Many Years Have You Smoked Tobacco? 19 Information not available 08/02/2019 Have You Used IV Drugs? No Information not available 08/02/2019 Do You Have Difficulty Walking Or Climbing Stairs? No [email or web address] Information not available 06/01/2021 Sex: Female Functional Status Question Answer Note LastModified by Organizat ion Details LastModified Time Do you or have you ever used smokeless tobacco? Never used smokeless tobacco Information not available 08/02/2019 Are you currently employed? No [email or web address] Information not available 06/01/2021 Do you have transportation difficulties? No [email or web address] Information not available 06/01/2021 Are you able to care for yourself independently? Yes [email or web address] Information not available 06/01/2021 Do you have difficulty dressing, bathing, grooming, or toileting? No Information not available 06/01/2021 Do you or have you ever used e-cigarettes or vape? Never used electronic cigarettes Information not available 08/02/2019 What is your exercise level? Occasional Information not available 08/02/2019 Do you use any illicit or recreational drugs? No [email or web address] Information not available 06/01/2021 Do you or have you ever used any other forms of tobacco or nicotine? No Information not available 06/01/2021 What is your level of alcohol consumption? Occasional [email or web address] Information not available 06/01/2021 Are you able to walk independently without assistance or assistive devices? [email or web address] Information not available 08/02/2019 Do you have difficulty doing errands alone? No [email or web address] Information not available 06/01/2021 What is your occupation? disabled Information not available 08/02/2019 Mental Status Question Answer Note LastModified by Organizat ion Details LastModified Time Do you feel stressed (tense, restless, nervous, or anxious, or unable to sleep at night)? AL4556-0 [email or web address] Information not available 06/01/2021 Do you have difficulty concentrating, remembering or making decisions? No [email or web address] Information no t available 06/01/2021 Family History Relationship Description Onset Age of this Age Resolved Age Notes LastModified by Organization Details LastModified Time Mother Family history of malignant neoplasm Not available 2018 15:20:47 Mother Congestive heart failure Not available 2018 15:20:56 Maternal Grandmother Diabetes mellitus Not available 2018 15:21:11 Medical History Condition Response Other N Gout N Kidney Stones N Blood Diseases N Hyperthyroidism N Blood Transfusion N Depression N COPD Y Incontinence N Edema N Endocrine Disorders N Anxiety Disorder Y Muscle, Joint, or Bone Problems N Obesity N Vision or Eye Problems N Arthritis N Auditory Hallucinations N Infertility N Cancer N Stroke N Varicosities N Fibromyalgia N Headaches N Kidney Disease N Abnormal Bleeding N Reproductive System Problems N Ear or Hearing Problems N Hospitalizations Y Learning Disorder N Skin Problems N Eating Disorder Y MRSA exposure N Urinary Problems N Constipation N Brain Injury N Visual Hallucinations N AIDS/HIV N Tuberculosis N Back Problems N Asthma N GERD/Reflux Y Hepatitis N Pulmonary Embolism N Chronic Ear Infections N Chicken Pox Y Autism Spectrum Disorder (ASD) N Thrombophilias N Thyroid Disease N Breast Cancer N Hypothyroidism N Lung Disease N Developmental or Behavioral Disorders N Defects or Inherited Disease N Breast Problem N Difficulty Swallowing N Anesthesia Complications N Deep Vein Thrombosis N Meniere's disease N Hearing Loss N Head Injury/Concussion N Congenital Anomalies N Abnormal Pap Smear N Endometriosis N Bladder or Kidney Problems N High Cholesterol N Nervous System Disorder N Liver Disease N Psychiatric/Mental Health Condition N Schizophrenia N Allergies/Hayfever N Parkinson's Disease N GI Problems N ADD/ADHD N Anemia N Colon Polyps N Heart Attack (MN) N Diabetes N Ovarian Cancer N Bedwetting N Seizures/Epilepsy N Amnesia N Congestive Heart Failure (CHF) N Eczema N Dementia N Diverticulitis N Abuse/Domestic Violence N Cardiovascular N Tourette Syndrome N Hypertension N Pre-Eclampsia N Osteoporosis N Gynecological History Statement/Question Response Abnormal Pap N Date of Last Pap Smear Age at Menarche 12 Current Control Method Hysterectom y Date of LMP Hormone Replacement Therapy Y Obstetrics History GPAL:G 0 P 0 0 0 0 Immunizations Vaccine Type Date Status Note Provider Nam e and Address Organization Details Recorded Time Hib, unspecified formulation 05/16/[facility] 14:27:42 MMR 12/27/[address] [facility] 11/26/2022 14:27:42 MMR 04/05/[address] [facility] 11/26/2022 14:27:42 Tdap 03/19/[address] [facility] 11/26/2022 14:27:42 Hep B, unspecified formulation 03/19/[address] [facility] 11/26/2022 14:27:42 Hep B, unspecified formulation 04/18/1999 sanjay GarciaFrancisco null, [facility] 11/26/2022 14:27:42 Hep B, unspecified formulation 06/24/2002 completed Krysten Jose-Francisco null, [facility] 11/26/2022 14:27:42 polio, unspecified formulation 1984 completed Krysten [facility], [facility] 11/26/2022 14:27:42 polio, unspecified formulation 03/15/1985 completed Krysten Jose-Francisco null, [facility] 11/26/2022 14:27:42 polio, unspecified formulation 06/12/1989 completed Krysten Jose-Francisco [facility], [facility] 11/26/2022 14:27:42 polio, unspecified formulation 08/29/1986 completed Krysten Jose-Francisco [facility] 11/26/2022 14:27:42 DTaP 1984 completed Krysten Jose-Francisco [facility], [facility] 11/26/2022 14:27:42 DTaP 03/15/1985 completed Krysten Jose-Francisco null, [facility] 11/26/2022 14:27:42 DTaP 04/12/1985 completed Krysten Jose-Francisco [facility], [facility] 11/26/2022 14:27:42 DTaP 06/12/1989 completed Krysten Jose-Francisco [facility], [facility] 11/26/2022 14:27:42 DTaP 08/29/1986 completed Krysten Jose-Francisco null, [facility] 11/26/2022 14:27:42 Past Encounters Encounter ID Performer Location Encounter Start Date Encounter Closed Date Diagnosis/Indication Diagnosis SNOMED-CT Code Diagnosis ICD10 Code Diagnosis IMO Codes Diagnosis Note [id number] Андрей Gordon MD [facility] [place] [address] [place] [address] 08/02/2019 15:06:48 08/04/2019 10:24:17 Chronic obstructive pulmonary disease 34362514 J44.9 Mild inter mittent asthma 662524219 J45.20 Chest pain 43523003 R07. 9 Edema 747751459 R60.9 Fatigue 81338112 R53.83 Tobacco de pendence syndrome 16747806 F17.200 Influenza vaccination declined 659857408 Z28.21 [id number] Андрей Gordon MD [facility] [place] [address] [place] [address] 10/01/2019 08:52:58 10/01/2019 10:19:48 Otitis media 40014846 H66.91 Otitis externa 4348656 H 60.91 Chronic ob structive pulmonary disease 12601375 J44.9 Mild inter mittent asthma 382213462 J45.20 Hormone re placement therapy 821321237 Z79.890 Edema of l ower extremity 546886919 R60.0 [id number] Андрей Gordon MD [facility] [place] [address] [place] [address] 10/01/2019 10:43:55 10/01/2019 12:39:06 Diet education 03965834 Z71.3 Food- and nutrition- related knowledge deficit r/t a healthful diet as evidenced by diet hx and client/med ical hx. Exercises education, guidance, and counseling 206023408 Z71.82 Excessive sedentary activity time [in the winter] r/t exercise education as evidenced by client/hx. Health-rel ated knowledge deficit r/t exercise as evidenced by client/med ical hx. Body mass index 25-29 - overweight 744257333 Z68.26 Predicted excessive fat intake r/t overweight as evidenced by brief diet hx. Disordered eating pattern r/t overweight as evidenced by diet hx. Overweight as evidenced by BMI of 26.5 (10/01/19) and weight at 131% of reported goal weight. 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 5434255695 6462173 F17.210 Excessive bioactive substance intake r/t tobacco dependence as evidenced by report of cigarette use. Health-rel ated knowledge deficit r/t tobacco dependence as evidenced by client/med ical hx. [id number] Андрей Gordon MD [facility] [place] [address] [place] [address] 04/17/2020 09:48:32 04/17/2020 12:33:33 Edema of lower extremity 761659462 R60.0 Pain in left knee 937156 8136 21796 M25.856 [id number] Андрей Gordon MD [facility] [place] [address] [place] [address] 05/19/2020 10:03:47 05/19/2020 11:48:37 Pain in left knee 5175513435 43678 M25.562 Seasonal a llergic rhinitis 077552374 J30.2 Hormone re placement therapy 927634623 Z79.506 [id number] Андрей Gordon MD [facility] [place] [address] [place] [address] 06/01/2021 10:57:55 06/01/2021 12:28:26 Seasonal allergic rhinitis 800622772 J30.2 Dysuria 85237959 R30.9 Mild inter mittent asthma 456414035 J45.20 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 0038732869 4705988 F17.210 Chronic ob structive pulmonary disease 22775428 J44.9 Body mass index 25-29 - overweight 424749865 Z68.26 Fatigue 70455661 R53.83 Hyperlipid emia screening 538273745 Z13.220 Diabetes m ellitus screening 222077240 Z13.1 Vitamin D below reference range 543128442 E55.9 Diet education 92299135 Z71.3 Exercises education, guidance, and counseling 834166748 Z71.82 Finding of body mass index 606573888 Z68.28 [id number] Johnson Calzada NP [facility] [place] [address] [place] [address] 04/17/2022 09:43:58 04/17/2022 10:55:15 Mild intermittent asthma 150882597 J45.20 Controlled Chronic ob structive pulmonary disease 66832986 J44.9 Hyperlipidemia 24118293 E78.5 Recommend Heart healthy diet includes eating plenty of nutrient-r ich foods f ruits and veggies, whole grains, lean poultry and fish. And it also means avoiding saturated fats, trans fats, and excess sodium and sugar. Pain of left hand 874855 4911 93735 M79.642 Pt has seen specialist Dr. Mcbride and she was told by him to follow up with him when she is able to get ride. [id number] Андрей Gordon MD [facility] [place] [address] [place] [address] 05/01/2022 11:33:11 05/01/2022 16:58:34 Hyperlipidemia 41669989 E78.5 Recent resolution of excessive amounts of fatty products r/t hyperlipid emia as evidenced by diet hx of intentiona lly choosing smaller portions of items such as steak and Ranch dressing. (Increased physical activity r/t hyperlipid emia as evidenced by client hx.) Altered nutrition- related lab values r/t hyperlipid emia as evidenced by 04/17/22 lipid panel with elevated total cholestero l and elevated LDL cholestero l. 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 3788810120 4622537 F17.210 Resolution of excessive bioactive substance intake r/t tobacco dependence as evidenced by report of cigarette cessation for 4 months. Health-rel ated knowledge deficit r/t tobacco dependence as evidenced by client/med ical hx. Diet education 95070596 Z71.3 Food- and nutrition- related knowledge deficit r/t a healthful diet continues as evidenced by diet hx and client/med ical hx. Exercises education, guidance, and counseling 089513087 Z71.82 Resolution of excessive sedentary activity time r/t exercise education as evidenced by client/hx of frequent walking, including post-meal exercise. Health-rel ated knowledge deficit r/t exercise continues as evidenced by client/med ical hx. Obesity 433780547 Z68.30 Recent resolution of excessive carbohydra te intake r/t obesity as evidenced by a cessation of added sugar from Sprite in the diet. Recent resolution of predicted excessive fat intake r/t obesity as evidenced by brief diet hx. Obese, class I, as evidenced by BMI of 30.7 with documented desirable weight loss of 1.8% in 2 weeks. Food- and nutrition- related knowledge deficit r/t obesity as evidenced by diet hx and client/med ical hx. [id number] Brayan Castellano MD [facility] [place] [address] [place] [address] 11/26/2022 13:52:33 12/13/2022 13:45:42 Intolerance to milk 625999912 K90.49 Instructed to avoid milk in her diet, not only due to possible allergy/in tolerance, but it increases mucous production . Will obtain testing as below Pain of left hand 492310 7283 50927 M79.642 will obtain testing as below Chronic ob structive pulmonary disease 93599251 J44.9 Will obtain testing as this time, Seasonal a llergic rhinitis 027672342 J30.2 Patient presents with allergic rhinitis. Supportive care reviewed: raising HOB, avoiding triggers, taking controller medication s, use of saline nasal spray/humi difier, encourage PO fluids, monitor hydration. RTO as scheduled for next WCC; sooner if any new or concerning symptoms arise. Continue current medication s Long-term drug therapy 624056963 Z79.899 will obtain testing as below Diabetes m ellitus screening 442842451 Z13.1 Hepatitis C screening 41 1165241 Z11.59 HIV screening 890886538 Z11.4 Diet education 98841244 Z71.3 Exercises education, guidance, and counseling 550356340 Z71.82 Finding of body mass index 964131348 Z68.32 [id number] Brayan Castellano MD [facility] [place] [address] [place] [address] 12/11/2022 15:24:58 12/11/2022 16:16:24 Chronic pain 92864208 G89.29 [id number] Pedro Villalta DO [facility] [place] [address] [place] [address] 05/07/2023 09:20:14 05/07/2023 11:12:40 Diet education 41106840 Z71.3 Heart healhty diet Exercises education, guidance, and counseling 637162816 Z71.82 Increase activity as tolerated Body mass index 30+ - obesity 728070282 Z68.32 Heart healthy diet, increase activity as tolerated Hormone re placement therapy 261097260 Z79.890 Medication as below, stable 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 Ok to proceed with surgery. 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 To have surgery soon Diet education 45837930 Z71.3 Heart healhty diet Exercises education, guidance, and counseling 763829326 Z71.82 Increase activity as tolerated Body mass index 30+ - obesity 746077833 Z68.32 Heart healthy diet, increase activity as tolerated Seasonal a llergic rhinitis 828545222 J30.2 Continue medication as below Chronic ob structive pulmonary disease 93615615 J44.9 Medication as below [id number] Pedro Villalta, DO [facility] [place] [address] [place] [address] 11/06/2023 14:44:04 11/06/2023 15:59:21 Chronic obstructive pulmonary disease 76504084 J44.9 Medication as below Seasonal a llergic rhinitis 458877347 J30.2 Continue medication as below Hormone re placement therapy 489626960 Z79.890 Medication as below, stable Body mass index 30+ - obesity 638856776 Z68.32 Heart healthy diet, increase activity as tolerated Health Concerns Section Related Observation LastModified by Organization Detai ls LastModified Time None Recorded Concern Status LastModified by Organization Details LastModified Time None Recorded Advance Directives Directive N: Payers Insurance Date Sequence Insurance Name Policy Number Policy Bermudez Covered Member ID Bermudez Member ID Guarantor Name 11/03/2023 1 [place] Zenaida Benítez [id number] Zenaida Benítez Notes Date Note Type Note Provider Name and Address Organization Details Recorded Time 11/26/2022 text/html ROS as noted in the HPI Patient here for follow upPatient states she has been having SOB x4-5 days, has noticed that is happens she drinks milkPatient would like to discuss getting a nebulizer, states that when she has the issues after the milk intake that it helps.Patient had surgery on left hand in Aug 2022 states she is still having pain, [facility] x-[facility]27[facility] 16:17:20 05/07/2023 text/html ROS as noted in the HPI Zenaida is a 37 y/o female presenting to office to establish primary care and medication refill. Pt states she needs surgical clearance for hand surgery. Pt states she has already had a surgery on her left hand but is needing Carpel tunnel surgery now on same hand. No recent illnesses. Tolerated surgery in the past with no issues. No other complaints noted today. Pedro Villalta DO [address] [place] [address], [phone], [facility] 05/07/2023 10:20:52 08/04/2023 text/html ROS as noted in the HPI Zenaida is a 38 y/o female presenting to office for 3 month follow up. Pt states she had a surgery on her Left foot in February but it is still swelling every time she walks. Pt states she is seeing someone in [facility] for her Carpal tunnel. Pt reports having increased sore/scratchy throat but thinks this might be d/t her allergies. No fevers or chills. No other complaints currently Pedro Villalta DO [address] [place] [address], [phone], [facility] 08/04/2023 14:59:45 11/06/2023 text/html ROS as noted in the HPI Zenaida is a 38 y/o female presenting to office for follow up and medication refills. Pt states she is doing well on all medications and will be moving at the end of this month. No new complaints today. No recent illnesses. Pedro Villalta DO [address], [phone], [facility] 11/06/2023 15:54:07 OBGyn Episode Ob Episode Information Episode Created Date Number of Fetuses Patient Bloodtype Patient rh Status Prepregnancy Weight lbs Domestic Partner Domestic Partner Phone Father Name Marine Diver Status 08/02/20 19 1 CLOSED Fetus Data First Name Last Name Admitted to NICU Weight (g) Sex Living Outcome Pediatric Complications Fetus ID Race Codes Race Delivery Type M [id number] Maninder Calculation Initial Maninder Date Initial Exam Date Initial Exam Provider Initial Ultrasound Date Last Menstrual Period Date Ultra Sound Weeks Gestation 0 Eighteen To Twenty Week Maninder Update Ultra Sound Date Fundal Height At Umbil Quickening Date Ultra Sound Latest Weeks Gestation Final Maninder Confirmed By Final Maninder Confirmed Date Final Maninder Date Ultra Sound Latest Days Gestation 0 0 Menstrual History Last Menstrual Date Menses Monthly On Bcp Conception Prior Menses Frequency Hcg Plus Date Menarche Onset Age Delivery Information Delivery Date Delivery Type Labor Anesthesia Weeks Gestation Incision Type Labor Labor Length Hrs Delivered By Post Complications Tubal Sterilization Discharge Date Comments 7 Discharge Information Feeding Method Contraceptive Method Maternal HG B and HCT Levels Ob Episode Information Episode Created Date Number of Fetuses Patient Bloodtype Patient rh Status Prepregnancy Weight lbs Domestic Partner Domestic Partner Phone Father Name Marine Diver Status 08/02/20 19 1 CLOSED Fetus Data First Name Last Name Admitted to NICU Weight (g) Sex Living Outcome Pediatric Complications Fetus ID Race Codes Race Delivery Type M [id number] Maninder Calculation Initial Maninder Date Initial Exam Date Initial Exam Provider Initial Ultrasound Date Last Menstrual Period Date Ultra Sound Weeks Gestation 0 Eighteen To Twenty Week Maninder Update Ultra Sound Date Fundal Height At Umbil Quickening Date Ultra Sound Latest Weeks Gestation Final Maninder Confirmed By Final Maninder Confirmed Date Final Maninder Date Ultra Sound Latest Days Gestation 0 0 Menstrual History Last Menstrual Date Menses Monthly On Bcp Conception Prior Menses Frequency Hcg Plus Date Menarche Onset Age Delivery Information Delivery Date Delivery Type Labor Anesthesia Weeks Gestation Incision Type Labor Labor Length Hrs Delivered By Post Complications Tubal Sterilization Discharge Date Comments 8 Discharge Information Feeding Method Contraceptive Method Maternal HG B and HCT Levels
--- OUTSIDE RECORDS SUMMARY | 2025-07-23 00:54 | XMS_ITS | Data Portability ---
Author Organization [facility], L LUIS ANGEL, MAIN OFFICE Address [address] [facility] [place] [address] Care Team Providers Care Flat Locker Name Role Phone SHANNON QUIROS Primary Care Provider Assessment No assessment recorded. Plan of Treatment Reminders Order Date Submit Date Provider Last Modified By Organization Details Last Modified Time Details Appointments None recorded. Lab pap, LB + reflex to HR HPV if ASC-U 2021 022 [facility] ([facility]), [address], [address], [place], [address], 2 19:11:08 pap, LB + reflex to HR HPV if ASC-U 2019 020 [facility] ([facility]), [address], [address], [place], [address], 0 14:57:40 Referral None recorded. Procedures None recorded. Surgeries None recorded. Imaging None recorded. Medication Orders estradiol 2 mg tablet 2021 022 [facility] [place], [facility] [address], [address], [place], [address], 2 12:55:23 estradiol 2 mg tablet 2019 020 INTERFACE Not available 0 13:08:46 Patient TargetsNo targets recorded. Patient InstructionsNo instructions recorded. Reason for Referral None Reported. Results Created Date Observation Date Name Description Value Unit Range Abnormal Flag Note LastModifiedBy Organization Detail LastModifiedTime Result Notes None recorded. Problems No Known Problems Procedures Surgical History Date Name Laterality Status Provider Name and Address Organization Details Recorded Time ligation of bilateral fallopian tubes completed Shant Manrique MD [address], [place], [address], [facility], [facility] 08/03/2020 14:52:24 cholelithotomy completed Shant Manrique MD [address], [place], [address], [facility], [facility] 08/03/2020 14:52:49 delivery completed Shant Manrique MD [address], [place], [address], [facility], [facility] 08/03/2020 14:53:19 EDD[place] [address], [place], [address], [facility], [facility] 08/09/2020 13:07:41 Appy completed Shant Manrique MD [address], [place], [address], [facility], [facility] 08/09/2020 13:07:50 Imaging Results None recorded. Procedure Notes None recorded. Medical Equipment None Reported. Allergies No known drug allergies Medications Name Sig Start Date Stop Date Status Note LastModified by Organization Details LastModified Time nebulizer (drive) USE DIRECTED active Not Available Not Available No t Available neomycin-po lymyxin-hyd rocort 3.5 mg/mL-10,00 0 unit/mL-1 % ear solution 08/03 completed Not Available Not Available Not Available albuterol sulfate 2.5 mg/3 mL (0.083 %) solution for nebulizatio n USE 1 VIAL IN NEBULIZER THREE TIMES DAILY NEEDED active Not Available Not Available No t Available azithromyci n 250 mg tablet 08/03 completed Not Available Not Available Not Available phenazopyri dine 100 mg tablet TAKE 1 TABLET 3 TIMES A DAY BY ORAL ROUTE FOR 10 DAYS. 09/28 completed Not Available Not Available Not Available estradiol 2 mg tablet TAKE 1 TABLET BY MOUTH DAILY active Not Available Not Available No t Available diclofenac sodium 50 mg tablet,chandler yed release 08/03 completed Not Available Not Available Not Available furosemide 20 mg tablet TAKE 1 TABLET BY MOUTH ONCE DAILY NEEDED 08/03 completed Not Available Not Available Not Available cefdinir 300 mg capsule 08/03 completed Not Available Not Available Not Available neomycin-po lymyxin-hyd rocort 3.5 mg-10,000 unit/mL-1 % ear drops,susp 08/03 completed Not Available Not Available Not Available potassium chloride ER 10 mEq tablet,exte nded release(par t/cryst) 08/03 completed Not Available Not Available Not Available nitrofurant oin monohydrate /macrocryst als 100 mg capsule TAKE 1 CAPSULE EVERY 12 HOURS BY ORAL ROUTE FOR 10 DAYS. 09/28 completed Not Available Not Available Not Available ProAir HFA 90 mcg/actuati on aerosol inhaler INHALE 2 PUFFS BY MOUTH EVERY 4 HOURS NEEDED active Not Available Not Available No t Available cetirizine 1 mg/mL oral solution take 2 TEASPOONF ULS (10ML) BY MOUTH EVERY DAY active Not Available Not Available No t Available Anoro Ellipta 62.5 mcg-25 mcg/actuati on powder for inhalation inhale 1 PUFF BY MOUTH DAILY active Not Available Not Available No t Available Vitals Date Recorded Body height Body mass index (BMI) Body weight Systolic And Diastolic Provider Name and Address Organization Details Last Updated DateTime 09/27/2021 170.18 cm 28.5 kg/m2 28846.81 g 136/80 mm[Hg] Shant Manrique MD [address] [place], [address], [facility] 09/28/2021 12:49:12 Date Recorded Body height Body mass index (BMI) Body weight Systolic And Diastolic Provider Name and Address Organization Details Last Updated DateTime 08/03/2020 170.18 cm 26.9 kg/m2 55718.89 g 146/99 mm[Hg] hSant Manrique MD [address] [facility] [place], [address], [employer], [facility] 08/03/2020 14:43:52 Social History Question Answer Notes LastModified by Organizat ion Details LastModified Time Tobacco Smoking Status Current Every Day Smoker Shant Manrique MD [address], [place], [address], [employer], [facility] 08/03/2020 14:51:43 Do You Have An Advance Directive? No [email or web address] Information not available 08/03/2020 Are You Blind Or Do You Have Difficulty Seeing? No [email or web address] Information not available 09/28/2021 What Is Your Level Of Caffeine Consumption? Occasional Information not available 08/03/2020 Are You Deaf Or Do You Have Serious Difficulty Hearing? No [email or web address] Information not available 09/28/2021 What Type Of Diet Are You Following? REGULAR [email or web address] Information not available 09/28/2021 Which Illicit Or Recreational Drugs Have You Used? Denies Information not available 08/03/2020 Education 12 [email or web address] Information no t available 08/03/2020 What Is The Highest Grade Or Level Of School You Have Completed Or The Highest Degree You Have Received? DP15117-7 [email or web address] Information not available 09/28/2021 Herpes No [email or web address] Information no t available 08/03/2020 PID No [email or web address] Information no t available 08/03/2020 Gonorrhea No [email or web address] Information no t available 08/03/2020 Chlamydia No Information no t available 08/03/2020 Syphilis No [email or web address] Information no t available 08/03/2020 Trichomanosis No [email or web address] Information not available 08/03/2020 Condyloma No [email or web address] Information no t available 08/03/2020 Marital Status Single [email or web address] Informatio n not available 09/28/2021 What Was The Date Of Your Most Recent Tobacco Screening? 09/27/2021 [email or web address] Information not available 09/28/2021 What Is Your Relationship Status? Single Information not available 09/28/2021 Are You Sexually Active? Yes [email or web address] Information not available 08/03/2020 How Much Tobacco Do You Smoke? 0.25 PPD Information not available 08/03/2020 General Stress Level Low [email or web address] Information not available 08/03/2020 How Many Years Have You Smoked Tobacco? 20 [email or web address] Information not available 08/03/2020 Sex: Unknown Functional Status Question Answer Note LastModified by Organizat ion Details LastModified Time What is your level of alcohol consumption? Occasional [email or web address] Information not available 08/03/2020 Do you or have you ever used smokeless tobacco? Never used smokeless tobacco Information not available 08/03/2020 Do you or have you ever used e-cigarettes or vape? Never used electronic cigarettes [email or web address] Information not available 08/03/2020 What is your exercise level? Occasional Information not available 08/03/2020 Mental Status None recorded. Family History Relationship Description Onset Age of this Age Resolved Age Notes LastModified by Organization Details LastModified Time Maternal Grandmother Diabetes mellitus [email or web address] Not available 2019 14:50:24 Maternal Grandmother Family history of malignant neoplasm colon [email or web address] Not available 2019 14:50:56 Maternal Grandmother Hypertensive disorder [email or web address] Not available 2019 14:51:23 Mother Family history of malignant neoplasm lung [email or web address] Not available 2019 14:50:56 Mother Heart disease swann [email or web address] Not available 2019 14:51:15 Father Heart disease [email or web address] Not available 2019 14:51:15 Medical History Condition Response NTD N Anxiety/Depression N DVT/PE N Kidney Stones N HTN N MVP N Thyroid Dysfunction N COPD Y PUD (ulcers) N Anemia N Deafness N Cancer- other N Cancer- female N CVA (stroke) N Blindness N IBS N Asthma Y Liver disease N Lupus N NIDDM N Seizures N Psoriasis N IDDM N Hepatitis N Coronary artery disease N Fibromyalgia N Gynecological History Statement/Question Response Last Mammogram never Breast Problems N Sexually Active? Y N STIs/STDs N N Last Pap Smear 08/03/20 Current Control Method Hysterectom y Obstetrics History GPAL:G 2 P 2 0 0 2 Type Value Full Term 2 Living 2 Total 2 Past Encounters Encounter ID Performer Location Encounter Start Date Encounter Closed Date Diagnosis/Indication Diagnosis SNOMED-CT Code Diagnosis ICD10 Code Diagnosis IMO Codes Diagnosis Note [id number] Shant Manrique MD MAIN OFFICE [address] [facility] [address] [place], [place] [address] 08/03/2020 14:08:42 08/03/2020 15:38:05 Gynecologic examination 26573256 Z01.419 Annual Examinatio n Discussed routine breast care/ screening including monthly SBE, yearly physician exams, and MMG screening when indicated Importance of routine yearly gynecologi c screening exams discussed Pap smear sent for pathologic analysis yes BP's elevated in office today, pt to contact PCP for follow up on this Screening for malignant neoplasm of breast 007627887 Z12.39 Screening for malignant neoplasm of vagina 476536882 Z12.72 Hormone re placement therapy 837395871 Z79.890 [id number] Shant Manrique MD MAIN OFFICE [address] [place] [address] 09/27/2021 09:40:47 09/27/2021 11:19:31 Gynecologic examination 50381101 Z01.419 Annual Examinatio n Discussed routine breast care/ screening including monthly SBE, yearly physician exams, and MMG screening when indicated Importance of routine yearly gynecologi c screening exams discussed Pap smear sent for pathologic analysis yes Screening for malignant neoplasm of breast 141928106 Z12.39 Screening for malignant neoplasm of cervix 239700125 Z12.4 Hormone re placement therapy 805080366 Z79.890 Health Concerns Section Related Observation LastModified by Organization Detai ls LastModified Time None Recorded Concern Status LastModified by Organization Details LastModified Time None Recorded Advance Directives Directive N: Payers Insurance Date Sequence Insurance Name Policy Number Policy Bermudez Covered Member ID Bermudez Member ID Guarantor Name 05/08/2023 1 [place] Zenaida Benítez [id number] Zenaida Benítez Notes Date Note Type Note Provider Name and Address Organization Details Recorded Time 08/03/2020 text/html Annual GYNReport ed by PatientHistoryFor history, patient reportsno gynecologic complaints.Genitourina ry symptomsFor urinary symptoms, patient reportsno hematuriaandno incontinence. For vulva, patient reportsno genital lesion. For vagina, patient reportsnormal vaginal discharge.Breast symptomsFor breast, patient reportsno breast pain,no breast lump, andno nipple discharge.Endocrine symptomsFor sexual complaints, patient reportsno sexual complaints,no pain during intercourse, andnormal libido. For menopausal symptoms, patient reportsno menopausal symptomsandnormal vaginal lubrication.Psychologi tammy symptomsFor psychological symptoms, patient reportsno depression,no anxiety, andno pmdd.Preventative measuresFor preventive measures, patient reportsencourage self breast examination,encourage regular exercise,encourage no tobacco use,encourage regular mammograms starting age 40, andfollowed with yearly pap smears. Shant Manrique MD [address] [place], [address], [facility] 08/09/2020 13:08:28 09/27/2021 text/html Annual GYNReport ed by PatientHistoryFor history, patient reportsno gynecologic complaints.Genitourina ry symptomsFor urinary symptoms, patient reportsno hematuriaandno incontinence. For vulva, patient reportsno genital lesion. For vagina, patient reportsnormal vaginal discharge.Breast symptomsFor breast, patient reportsno breast pain,no breast lump, andno nipple discharge.Endocrine symptomsFor sexual complaints, patient reportsno sexual complaints,no pain during intercourse, andnormal libido. For menopausal symptoms, patient reportsno menopausal symptomsandnormal vaginal lubrication.Psychologi tammy symptomsFor psychological symptoms, patient reportsno depression,no anxiety, andno pmdd.Preventative measuresFor preventive measures, patient reportsencourage self breast examination,encourage regular exercise,encourage no tobacco use,encourage regular mammograms starting age 40, andfollowed with yearly pap smears. Shant Manrique MD [address] [place], [address], [facility] 09/28/2021 12:52:11 OBGyn Episode No OBEpisode recorded.
--- OUTSIDE RECORDS SUMMARY | 2025-07-23 00:54 | XMS_ITS | Data Portability ---
Author Organization [place] [facility] [place], ADMIN Address [address] [place] [address] Care Team Providers Care Director Of Construction Name Role Phone SHANNON QUIROS Primary Care Provider Assessment Encounter Date Assessment Date Assessment LastModified by Organization Details LastModified Time 10/25/2020 10/25/2020 35 yo LHD female c/o left hand pain and numbness s/p fall backwards onto out stretched hand from standing height 1 week ago. DOI: 10/18/2020. Patient seen at Urgent care that day and [facility] 2 days after injury, x-rayed, splinted, and referred to Hand Surgery Clinic this AM. 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 Describes pain as sharp shooting pain. States all her fingers and hand are numb and she can't move fingers. We did however observe her moving wrist and all the fingers an her hand so I don't know if this is real or factitious. Denies previous left hand trauma. Denies fever/recent illness. No swelling. No ecchymosis. Skin intact. 1. Order MRI left hand & wrist without contrast, to rule-out occult scaphoid fracture or occult metacarpal fracture 2. Unable to exam due to histrionic behavior but no swelling or ecchymosis noted. 3. Patient tried and failed NSAIDs RTC after MRI [email or web address] Not available 10/25/2020 15:57:09 11/15/2020 11/15/2020 3 week follow-up for MRI results and to discuss treatment options for this 35 yo LHD female c/o left hand pain and numbness s/p fall backwards onto out stretched hand from standing height 1 week ago. DOI: 10/18/2020. Patient seen at Urgent care that day and [facility] ER 2 days after injury, x-rayed, splinted, and referred to Hand Surgery Clinic. 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 Describes pain as sharp shooting pain. States pain now localizes to left thumb CMC joint. Denies fever/recent illness. No swelling. No ecchymosis. Skin intact. NSAID's have not helped at all as per patient. MRI IMPRESSION: No acute fracture left wrist. Specifically the scaphoid is intact. Mild osteoarthrosis. Questionable capsular/ligamento us sprain/partial tearing to the first carpometacarpal joint. Otherwise no definitive bone erosions, joint subluxations or tenosynovitis. Wrist held in pronation. ECU ulnar sided subluxation with some mild tendinosis/split. DICTATED DATE: 11/01/20 0952 DICTATED BY: Samara Hernandez M.D. 1. Start formal therapy with Sandra Payton [facility] 2. Patient tried and failed NSAIDs RTC 1 month [email or web address] Not available 11/15/2020 13:58:42 06/30/2023 06/30/2023 X-rays performed today of the left knee demonstrate mild degenerative changes of the medial compartment. Patient has lateral tilt to the patella noted with mild to moderate degenerative changes of patellofemoral joint. I discussed these findings with the patient today. I do think that most of her discomfort is coming from her patellofemoral joint. We discussed treatment options for this in detail to include steroid injection, bracing, and physical therapy. Patient's insurance would not pay for physical therapy so I gave her printout of exercises today. Patient was agreeable to proceeding with injection in the knee. After proper consent is obtained and time out procedure is done, the patient was sterilely prepped and injected with 3mL of 2% lidocaine, 3mL of 0.5% marcaine, and 1mL of kenalog. Patient tolerated the injection well and reported relief afterward. I have given her an order for a knee brace today. I am going to see her back in office in 3 months for recheck of the knee. She was advised to call sooner with any issues or concerns. Not available 06/30/2023 16:08:04 10/06/2023 10/06/2023 Patient had rece nt left foot tendon graft surgery by an outside surgeon on 10/01/22. I told her that I am not willing to give her steroids in her left leg until she is 6 weeks from surgery. She expressed understanding of this. We will schedule her an appointment at this time to come in for an injection. Not available 10/06/2023 14:40:09 11/12/2023 11/12/2023 Patient has patellofemoral syndrome of the knee. She is actually about to move to [place] in the next month. She is requesting a repeat injection today to help with her pain to get her through the move. After proper consent is obtained and time out procedure is done, the patient was sterilely prepped and injected with 3mL of 2% lidocaine, 3mL of 0.5% marcaine, and 2mL of betamethasone. Patient tolerated the injection well and reported relief afterward. I also recommended she continue to wear the knee brace as needed. I am going to see her back in office as needed from this point. [email or web address] Not available 11/12/2023 14:52:57 Plan of Treatment Reminders Order Date Submit Date Provider Last Modified By Organization Details Last Modified Time Details Appointments None recorded. Lab None recorded. Referral None recorded. Procedures None recorded. Surgeries None recorded. Imaging XR, knee, 3 view 2022 023 [email or web address] [facility], [address] [facility], [place], [address], 3 16:06:22 XR, wrist, 3 or more view 2020 021 [email or web address] [place] [facility] (Radiology), [address], [place], [address], 1 09:08:03 MRI, wrist, w/o contrast 2020 021 [email or web address] 4 [facility], [address], [place], [address], 09:08:03 Medication Orders lidocaine (PF) 10 mg/mL (1 %) injection solution 2023 024 [email or web address] Not available 4 21:23:06 Marcaine 0.5 % (5 mg/mL) injection solution 2023 024 [email or web address] 8 Not available 4 21:23:06 Celestone Soluspan 6 mg/mL suspension for injection 2023 024 [email or web address] 8 Not available 4 21:23:06 lidocaine (PF) 10 mg/mL (1 %) injection solution 2022 023 [email or web address] Not available 3 17:33:52 Marcaine (PF) 0.5 % (5 mg/mL) injection solution 2022 023 [email or web address] Not available 3 17:33:52 Kenalog 40 mg/mL suspension for injection 2022 023 Not available 3 17:33:52 Patient TargetsNo targets recorded. Patient Instructions Encounter Date Encounter Id Patient Instructions Last Modified By Organization Details Last Modified Time 10/25/2020 [id number] Discussed as above RTC after MRI [email or web address] Not available 10/25/2020 15:53:01 11/15/2020 [id number] Discussed as above RTC 1 month [email or web address] Not available 11/15/2020 13:58:28 Reason for Referral None Reported. Results Created Date Observation Date Name Description Value Unit Range Abnormal Flag Note LastModifiedBy Organization Detail LastModifiedTime 10/25/1910/25/2020 wrist compl ete min 3 V M25.53 2 Proced ure Acknow ledge Date: 2020 10:59 AM Exam: Left wrist four views Date: 2020 Compar kieran: None Histor y: Left wrist pain after fall FINDIN GS: Scapho id view, latera l, obliqu e, and AP view of the left wrist obtain ed. No acute fractu re or disloc ation. No arthri tic change s. Impres alfa: No acute bony abnorm ality. DICTAT ED DATE: 1332 DICTAT ED BY: Corey Roper M.D. TRANSC RIBED DATE: 1332 TRANSC RIBED BY: SAROJ SIGNED BY: Corey Roper M.D. DT: 2020 01:33 PM Dictat ed By: COREY ROPER MD DF: 2020 01:33 PM Signed By: COREY ROPER MD Provid er(s): Orderi ng Provid er: Result Copies To: Casandra ing Doctor : CAPO MITCHELL Referr ing Doctor : Jayro hurd Doctor : Arlene burnett Doctor : Other Health care Provid er: [email or web address] [place] [address] (Radiology) [address], [place], [address], 10/25/2020 17:01:57 11/01/19 21 11/01/2020 bl MRI up extre m wo cont M25.53 2 LT HAND AND LT WRIST PAIN Proced ure Acknow ledge Date: 2020 09:06 AM EXAM: MRI upper extrem ity / left hand withou t contra st. HISTOR Y: Left hand and left wrist pain after fall y . No left hand/w rist surger y report ed. . COMPAR KIERAN: Three- view plain film examin ation left wrist 2020. Three- view plain film examin ation left hand 2020. Four views left wrist 2020. TECHNI QUE: Using a local extrem ity coil on a high field [facility] 1.5 Eloisa magnet multip lanar multis equenc e magnet resona nce imagin g was perfor med the left hand using a large field of view withou t intrav enous or intra- articu lar gadoli nium contra st.. MRI compat ible marker placed over the dorsum at the first carpom etacar pal joint level FINDIN GS: The alignm ent of the left hand shows no disloc ation or joint sublux ations . Bone marrow signal intens ity of the left hand shows no acute fractu re. No bone erosio ns. Specif ically the scapho id bone intact . Mild radioc arpal joint osteoa rthros is. Questi on first carpom etacar pal joint capsul e/liga mentou s sprain . Exit of the carpal tunnel within normal limit in appear ance. Muscle bulk over the palm shows normal signal intens ity. Dorsal extens or and palmar flexor tendon s grossl y intact withou t full-t hickne ss disrup tion or tendon bow string ing. No overt tenosy noviti s either .. IMPRES ALFA: No acute fractu re left hand. No bone erosio ns, joint sublux ations or tenosy noviti s.. Specif ically the scapho id bone intact . Mild radioc arpal joint osteoa rthros is. Questi on first carpom etacar pal joint capsul e/liga mentou s sprain . Please see separa tely dictat ed MRI left wrist 2020 for luisa r evalua tion. DICTAT ED DATE: 941 DICTAT ED BY: Samara Tavera M.D. TRANSC RIBED DATE: 941 TRANSC RIBED BY: SAROJ SIGNED BY: Samara Tavera M.D. DT: 2020 09:42 AM Dictat ed By: SAMARA TAVERA MD DF: 2020 09:42 AM Signed By: SAMARA TAVERA MD ting Provid er(s): Orderi ng Provid er: Result Copies To: [facility] : CAP[facility] MITCHELL [facility] : Jayro hurd Doctor : Arlene burnett Doctor : Other Health care Provid er: [email or web address] [facility] (Radiology) [address], [place], [address], 11/03/2020 10:03:30 11/01/1911/01/2020 MRI, upper extre mity joint (s), w/o contr ast M25.53 2 LT HAND AND LT WRIST PAIN Proced adwoa islas Date: 2020 09:06 AM EXAM: MRI left wrist withou t contra st. HISTOR Y: Fall y on ice. Swelli ng. No left wrist surger y report ed. Prior descri bed lucenc ies involv ing the scapho id. Castin g/spli nt placem ent. Subseq uent remova l. Follow -up x-rays 2020. TECHNI QUE: Using a local extrem ity coil on a high field [facility] 1.5 Eloisa magnet multip lanar multis equenc e magnet resona nce imagin g perfor med the left wrist withou t intrav enous or intra- articu lar gadoli nium contra st. Note MRI compat ible marker placed over the dorsal radial aspect of the left wrist at approx imate the first carpom etacar pal joint level. . COMPAR KIERAN: Four view plain film examin ation left wrist 2020. Three- view plain film examin ation left hand 2020. Three- view plain film examin ation left wrist 2020. FINDIN GS: Please see separa tely dictat ed MRI left hand 2020 for furthe r evalua tion. The alignm ent of the left wrist shows it held in pronat ion withou t disloc ation or sublux ation. No scapho lunate or lunotr iquetr al interv al wideni ng. Physio logic amount fluid radioc arpal joint. Bone marrow signal intens ity of the left wrist shows no acute fractu re. No full-t hickne ss scapho lunate or lunotr iquetr al ligame ntous disrup tion. The centra l triang ular fibroc artila ge disc grossl y intact on this non-ar throgr aphic examin ation. . Mild osteoa rthros is radioc arpal joint as well as pisotr iquetr al articu lation .. Questi onable capsul ar/lig amento us sprain /parti al tearin g to the first carpom etacar pal joint. Carpal tunnel its conten ts as well as overly ing flexor retina culum within normal limit in appear ance. Palmar is longus tendon presen t. Course of Guyons canal within normal limit. ECU ulnar sided sublux ation with some mild tendin osis/s plit. Extens or compar tments I - V otherw ise intact . No defini tive gangli on cyst format ion. IMPRES ALFA: No acute fractu re left wrist. Specif ically the scapho id is intact . Mild osteoa rthros is. Questi onable capsul ar/lig amento us sprain /parti al tearin g to the first carpom etacar pal joint. Otherw ise no defini tive bone erosio ns, joint sublux ations or tenosy noviti s. Wrist held in pronat ion. ECU ulnar sided sublux ation with some mild tendin osis/s plit. DICTAT ED DATE: 951 DICTAT ED BY: Samara Tavera M.D. TRANSC RIBED DATE: 951 TRANSC RIBED BY: SAROJ SIGNED BY: Samara Tavera M.D. DT: 2020 09:52 AM Dictat ed By: SAMARA TAVERA MD DF: 2020 09:52 AM Signed By: SAMARA TAVERA MD ting Provid er(s): Gray ferrera Provid er: Result Copies To: [facility] : CAPO MITCHELL Referr ing Doctor : Jayro hurd Doctor : Arlene burnett Doctor : Other Health care Provid er: [email or web address] [facility] (Radiology) [address] [facility], [place], [address], 11/03/2020 10:03:31 06/30/20 23 06/30/2023 xr knee [address] [place] [facility] [place] [facility] Patimecca t: AMANDA MILLAN 7 : 983 Sex: Female Locati on: [facility] Orderbi ferrera Physic cherise: SEDRICK LO stic Radiol ogy Access ion Exam Date/T more [id number] -[id number] 0039 023 13:59 CDT Reason for Exam lt knee pain Report EXAM: LEFT KNEE THREE VIEW HISTOR Y: Left knee pain. COMPAR KIERAN: 2022. FINDIN GS/IMP RESSIO N: No discre te fractu re line. No disloc ation. Medial compar tment degene rative change s. Final Signed by: MYKEL SPENCE RD, DO Signed (Elect ronic Signat ure): 2022 04:51 pm CDT [facility] (Radiology) [address], [place], [address], 06/30/2023 17:57:29 Result Notes Documentation Provider Name and Address Organization Details Recorded Time Mri, Upper Extremity Joint(s), W/o Contrast : M25.532 LT HAND AND LT WRIST PAIN Procedure Acknowledge Date: 11/01/2020 09:06 AM EXAM: MRI left wrist without contrast. HISTORY: Fall October 18 on ice. Swelling. No left wrist surgery reported. Prior described lucencies involving the scaphoid. Casting/splint placement. Subsequent removal. Follow-up x-rays 10/25/2020. TECHNIQUE: Using a local extremity coil on a high field strength 1.5 Eloisa magnet multiplanar multisequence magnet resonance imaging performed the left wrist without intravenous or intra-articular gadolinium contrast. Note MRI compatible marker placed over the dorsal radial aspect of the left wrist at approximate the first carpometacarpal joint level.. COMPARISON: Four view plain film examination left wrist 10/25/2020. Three-view plain film examination left hand 10/20/2020. Three-view plain film examination left wrist 10/18/2020. FINDINGS: Please see separately dictated MRI left hand 11/01/2020 for further evaluation. The alignment of the left wrist shows it held in pronation without dislocation or subluxation. No scapholunate or lunotriquetral interval widening. Physiologic amount fluid radiocarpal joint. Bone marrow signal intensity of the left wrist shows no acute fracture. No full-thickness scapholunate or lunotriquetral ligamentous disruption. The central triangular fibrocartilage disc grossly intact on this non-arthrographic examination.. Mild osteoarthrosis radiocarpal joint as well as pisotriquetral articulation.. Questionable capsular/ligamentous sprain/partial tearing to the first carpometacarpal joint. Carpal tunnel its contents as well as overlying flexor retinaculum within normal limit in appearance. Palmaris longus tendon present. Course of Guyons canal within normal limit. ECU ulnar sided subluxation with some mild tendinosis/split. Extensor compartments I - V otherwise intact. No definitive ganglion cyst formation. IMPRESSION: No acute fracture left wrist. Specifically the scaphoid is intact. Mild osteoarthrosis. Questionable capsular/ligamentous sprain/partial tearing to the first carpometacarpal joint. Otherwise no definitive bone erosions, joint subluxations or tenosynovitis. Wrist held in pronation. ECU ulnar sided subluxation with some mild tendinosis/split. DICTATED DATE: 11/01/20951 DICTATED BY: Samara Hernandez M.D. TRANSCRIBED DATE: 11/01/20951 TRANSCRIBED BY: SAROJ SIGNED BY: Samara Hernandez M.D. Dictated By: SAMARA HERNANDEZ MD DF: 11/01/2020 09:52 AM Signed By: SAMARA HERNANDEZ MD Supporting Provider(s): Ordering Provider: Result Copies To: Attending Doctor: MAHNAZ MITCHELL Referring Doctor: Consulting Doctor: Admitting Doctor: Other Healthcare Provider: Sara torres BERTO Venkatesh [facility] [place] 11/03/2020 10:03:31 Problems Name Problem SNOMED Code Status Onset Date Resolution Date Notes Provider Name and Address Organization Details Recorded Time Chronic obstructive pulmonary disease 30720380 Active 2017 SANDEEP Zamora, [address] 8 15:20:03 Asthma 798917264 Active 2017 [facility] [place] 8 15:20:09 Chest pain 55178413 Active 2019 Tanna torres [place]ERT[place] Venkatesh [facility] [place] 0 15:59:57 Smoker 02561754 Active 2019 Tanna torres [place]ERT[place] Venkatesh [facility] [place] 0 16:00:32 Dyspnea 313814041 Active 2019 Tanna torres [place] Riddle [facility] [place] 0 16:00:39 Problem Notes None recorded. Procedures Surgical History Date Name Laterality Status Provider Name and Address Organization Details Recorded Time 08/11/20 17 Date of Last Pap Smear completed SANDEEP Zamora [facility] [place] 06/23/2018 14:49:40 delivery completed SANDEEP Zamora [place] 06/23/2018 14:56:06 Tubal Ligation completed SANDEEP Zamora [facility] [place] 06/23/2018 14:56:13 Other completed SANDEEP Zamora [place] 06/23/2018 14:57:00 Other completed SANDEEP Zamora [place] 06/23/2018 14:57:25 Appendectomy completed SANDEEP Zamora [place] 06/23/2018 14:57:29 Cholecystectomy completed SANDEEP Pérez [facility] [place] 07/24/2020 15:17:44 Imaging Results None recorded. Procedure Notes None recorded. Medical Equipment None Reported. Allergies Allergen ID Allergen Name Allergen Category Reaction Reaction Severity Criticality Documentation Date Start Date Code Code System Note Provider Name and Address Organization Details Recorded Time 59540 aspirin medicatio n Not available Not available Not available 06/23/2018 1191 RxNorm SANDEEP Zamora [address] 8 14:40:16 51354 codeine medicatio n Not available Not available Not available 06/23/2018 2670 RxNorm SANDEEP Zamora [address] 8 14:40:22 60705 orange juice food,medi cation Not available Not available Not available 06/23/2018 62095 66 RxNorm SANDEEP Zamora [address] 8 14:40:32 [address]39[address] Product containin g penicilli n (product) medicatio n Not available Not available Not available 06/23/2018 42633 8001 SNOMED SANDEEP Zamora [address] 8 14:40:52 87931 propoxyph shelton medicatio n Not available Not available Not available 06/23/2018 8785 RxNorm SANDEEP Zamora [address] 8 14:41:04 32078 honey bee venom environme nt Not available Not available Not available 06/23/2018 58388 7 RxNorm Caron Garcia RN null, [address] 8 14:41:12 37449 ibuprofen medicatio n Not available Not available Not available 06/23/2018 5640 RxNorm Caron Garcia RN null, [address] 8 14:41:20 59324 promethaz ine medicatio n Not available Not available Not available 06/23/2018 8745 RxNorm Caron Garcia RN null, [address] 8 14:41:28 75316 red dye food,medi cation Not available Not available Not available 06/23/2018 Caron Garcia RN null, [address] 8 14:41:40 83288 acetamino phen / oxycodone medicatio n other Not available Not available 03/14/2020 75018 3 RxNorm rt side goes numb Sarah LUCI Lauren null, [address] 0 10:15:41 52723 Darvocet- N medicatio n Not available Not available Not available 07/24/2020 Sylvie Crystal RN null, [address] 0 15:16:15 Medications Name Sig Start Date Stop Date Status Note LastModified by Organization Details LastModified Time nebulizer (drive) USE DIRECTED active Not Available Not Available No t Available neomycin-po lymyxin-hyd rocort 3.5 mg/mL-10,00 0 unit/mL-1 % ear solution 10/25 completed Not Available Not Available Not Available albuterol sulfate 2.5 mg/3 mL (0.083 %) solution for nebulizatio n USE 1 VIAL IN NEBULIZER AND INHALE BY MOUTH THREE TIMES DAILY NEEDED active Not Available Not Available No t Available azithromyci n 250 mg tablet 10/25 completed Not Available Not Available Not Available Celestone Soluspan 6 mg/mL suspension for injection Take 2 mL by injection route. 2023 active Not Available Not Available Not Avai lable Kenalog 40 mg/mL suspension for injection Take 1 mL by injection route. 2022 active Not Available Not Available Not Avai lable Marcaine 0.5 % (5 mg/mL) injection solution Take 3 mL by injection route. 2023 active Not Available Not Available Not Avai lable phenazopyri dine 100 mg tablet TAKE 1 TABLET 3 TIMES A DAY BY ORAL ROUTE FOR 10 DAYS. active Not Available Not Available No t Available hydrocodone 7.5 mg-acetamin ophen 325 mg tablet TAKE 1 TABLET BY MOUTH EVERY 6 HOURS NEEDED FOR PAIN active Not Available Not Available No t Available orphenadrin e citrate ER 100 mg tablet,exte nded release TAKE 1 TABLET BY MOUTH TWICE DAILY FOR 7 DAYS active Not Available Not Available No t Available estradiol 2 mg tablet TAKE ONE TABLET BY MOUTH EVERY MORNING active Not Available Not Available No t Available diclofenac sodium 50 mg tablet,chandler yed release 10/25 completed Not Available Not Available Not Available furosemide 20 mg tablet TAKE 1 TABLET BY MOUTH ONCE DAILY NEEDED 10/25 completed Not Available Not Available Not Available methylpredn isolone 4 mg tablets in a dose pack TAKE BY MOUTH DIRECTED ON INSIDE OF PACKAGE active Not Available Not Available No t Available Vitamin C 250 mg tablet TAKE 1 TABLET BY MOUTH DAILY active Not Available Not Available No t Available cefdinir 300 mg capsule 10/25 completed Not Available Not Available Not Available Ventolin HFA 90 mcg/actuati on aerosol inhaler inhale 2 puffs BY MOUTH EVERY 4 HOURS NEEDED active Not Available Not Available No t Available neomycin-po lymyxin-hyd rocort 3.5 mg-10,000 unit/mL-1 % ear drops,susp 10/25 completed Not Available Not Available Not Available cholecalcif abram (vitamin D3) 25 mcg (1,000 unit) capsule TAKE 3 CAPSULES BY MOUTH DAILY active Not Available Not Available No t Available cyclobenzap rine 5 mg tablet TAKE 1 TABLET BY MOUTH THREE TIMES DAILY NEEDED active Not Available Not Available No t Available potassium chloride ER 10 mEq tablet,exte nded release(par t/cryst) 10/25 completed Not Available Not Available Not Available Marcaine (PF) 0.5 % (5 mg/mL) injection solution Take 3 mL by injection route. 2022 active Not Available Not Available Not Avai lable nitrofurant oin monohydrate /macrocryst als 100 mg capsule TAKE 1 CAPSULE EVERY 12 HOURS BY ORAL ROUTE FOR 10 DAYS. active Not Available Not Available No t Available lidocaine (PF) 10 mg/mL (1 %) injection solution Take 3 mL by injection route. 2023 active Not Available Not Available Not Avai lable cetirizine 1 mg/mL oral solution TAKE 2 TEASPOONF ULS (10ML) BY MOUTH DAILY active Not Available Not Available No t Available Zyrtec 10 mg capsule Take 1 capsule every day by oral route. active Not Available Not Available No t Available Anoro Ellipta 62.5 mcg-25 mcg/actuati on powder for inhalation INHALE 1 PUFF BY MOUTH DAILY active Not Available Not Available No t Available albuterol sulfate 90 mcg/actuati on breath activated powder inhaler Inhale 2 puffs every 6 hours by inhalatio n route as needed. 07/24 completed Not Available Not Available Not Available albuterol sulf 90 mcg/actuati on breath activated powder inhaler,sen sor Inhale 2 puffs every 4 hours by inhalatio n route. 10/25 completed Not Available Not Available Not Available Vitals Date Recorded Body weight Body mass index (BMI) Body height Heart rate Pain severity - 0-10 verbal numeric rating [Score] - Reported Systolic And Diastolic Provider Name and Address Organization Details Last Updated DateTime 4 31165.5 4 g 36.1 kg/m2 165.1 cm 89 /min 3 124/78 mm[Hg] Naif Frey [facility] [place] 4 14:02:10 Date Recorded Body height Body mass index (BMI) Body weight Heart rate Body temperature Pain severity - 0-10 verbal numeric rating [Score] - Reported Systolic And Diastolic Provider Name and Address Organization Details Last Updated DateTime 1 165.1 cm 28.1 kg/m2 69942.1 1 g 87 /min 96.9 [degF] 10 123/90 mm[Hg] Ligia Calzada RT(R), ROT, ADULT BASIC EDUCATION MANAGER [place] - [facility] [place] 1 12:06:55 Date Recorded Body height Body mass index (BMI) Body weight Heart rate Pain severity - 0-10 verbal numeric rating [Score] - Reported Systolic And Diastolic Provider Name and Address Organization Details Last Updated DateTime 4 165.1 cm 36.3 kg/m2 67552.1 4 g 76 /min 8 120/76 mm[Hg] Naif Frey [address] 4 14:26:14 Date Recorded Body height Body mass index (BMI) Body weight Heart rate Body temperature Pain severity - 0-10 verbal numeric rating [Score] - Reported Systolic And Diastolic Provider Name and Address Organization Details Last Updated DateTime 1 165.1 cm 28.1 kg/m2 06208.1 1 g 97 /min 97.3 [degF] 8 115/74 mm[Hg] Sara Peña LPN [address] 1 10:18:49 Date Recorded Heart rate Body weight Pain severity - 0-10 verbal numeric rating [Score] - Reported Systolic And Diastolic Provider Name and Address Organization Details Last Updated DateTime 06/30/2023 94 /min 85317.18 g 10 122/70 mm[Hg] Lizzeth Carlisle [address] 06/30/2023 15:02:57 Social History Question Answer Notes LastModified by Organizat ion Details LastModified Time Tobacco Smoking Status Current Some Day Smoker Caron Garcia RN [email or web address], [address] 06/23/2018 14:52:54 Do You Have An Advance Directive? No [email or web address] Information not available 06/23/2018 Is Blood Transfusion Acceptable In An Emergency? Yes [email or web address] Information not available 06/23/2018 What Is Your Level Of Caffeine Consumption? Occasional [email or web address] Information not available 06/23/2018 What Type Of Diet Are You Following? REGULAR [email or web address] Information not available 06/23/2018 Which Illicit Or Recreational Drugs Have You Used? Denies [email or web address] Information not available 06/23/2018 Education 12 [email or web address] Information no t available 06/23/2018 Which Of Your Hands Is Dominant? Left celledge Information not available 03/14/2020 Live Alone Or With Others? With Others [email or web address] Information not available 06/23/2018 Marital Status [email or web address] Informatio n not available 10/25/2020 What Was The Date Of Your Most Recent Tobacco Screening? 10/25/2020 [email or web address] Information not available 10/25/2020 How Many Children Do You Have? 2 [email or web address] Information not available 06/23/2018 Performs Monthly Self-breast Exam? No [email or web address] Information no t available 06/23/2018 What Is Your Relationship Status? Other [email or web address] Information not available 06/23/2018 Seat Belts Used Routinely Yes [email or web address] Information not available 06/23/2018 Are You Sexually Active? Yes [email or web address] Information not available 06/23/2018 How Much Tobacco Do You Smoke? 0.5 PPD [email or web address] Information not available 10/25/2020 General Stress Level Medium [email or web address] Information not available 06/23/2018 Do You Use Sunscreen Routinely? Yes [email or web address] Information not available 06/23/2018 Sex: Unknown Functional Status Question Answer Note LastModified by Organizat ion Details LastModified Time What is your level of alcohol consumption? None [email or web address] Information not available 06/23/2018 Do you or have you ever used smokeless tobacco? Never used smokeless tobacco Information not available 06/09/2019 Are you currently employed? No [email or web address] Information not available 06/23/2018 Are you able to care for yourself independently ? Yes [email or web address] Information not available 10/25/2020 What is your occupation? disable Learning disability [email or web address] Information not available 10/25/2020 Do you or have you ever used e-cigarettes or vape? Never used electronic cigarettes Information not available 06/09/2019 What is your exercise level? Moderate [email or web address] Information not available 06/23/2018 Mental Status None recorded. Family History Relationship Description Onset Age of this Age Resolved Age Notes LastModified by Organization Details LastModified Time Mother Malignant neoplasm of lung [email or web address] Not available 2017 14:51:17 Father Heart disease [email or web address] Not available 2017 14:51:37 Father Seizure [email or web address] Not available 06/23/2018 14:51:44 Maternal Grandfather Heart disease [email or web address] Not available 2017 14:52:29 Medical History Condition Response RHEUMATIC FEVER N STROKE N HORMONE IMBALANCE N DIABETES N RADIATION / CHEMOTHERAPY N SEIZURES N FEMALE PROBLEMS / INFECTIONS Y DEPRESSION (INCLUDING POST ) N BOWEL PROBLEMS N HAVE YOU BEEN HOSPITALIZED OR SEEN IN THE MEDICAL CENTER IN THE PAST YEAR ? N MIGRAINES N THYROID DISEASE N BREAST PROBLEMS N HERNIATED DISC N HIV / AIDS N OBESITY N ANEURYSM N OSTEOPOROSIS N URINARY/BLADDER/KIDNEY PROBLEMS Y CANCER N ARTHRITIS N USE OF BLOOD THINNERS N HEADACHES N SKIN PROBLEMS N SICKLE CELL N HIGH CHOLESTEROL N BLOOD CLOTS N HEPATITIS / LIVER DISEASE N ASTHMA Y PULMONARY DISEASE Y SLEEP DISORDER N HERPES N ALLERGIES N VARICOSITIES N ANEMIA N VASCULAR DISEASE N DIZZINESS N GERD / HEARTBURN / REFLUX Y KIDNEY DISEASE N LUNG DISORDER Y HYPERTENSION N CARDIAC ARRHYTHMIA N ANXIETY DISORDER Y ANEMIA/BLOOD DISORDER N PULMONARY EMBOLISM N HEART DISEASE N Gynecological History Statement/Question Response If Post Menopausal, Age at Menopause 31 Date of LMP Sexually Active? Y STIs/STDs N Date of Last Pap Smear 08/11/2017 Sexual Problems? N Obstetrics History GPAL:G 2 P 2 0 0 2 Type Value Full Term 2 Living 2 Total 2 Past Encounters Encounter ID Performer Location Encounter Start Date Encounter Closed Date Diagnosis/Indication Diagnosis SNOMED-CT Code Diagnosis ICD10 Code Diagnosis IMO Codes Diagnosis Note [id number] MALIKA PARIKH MD [facility] [employer] [address] [place] [address] 06/23/2018 14:24:32 06/23/2018 15:49:43 Hormone replacement therapy 925087501 Z79.890 [id number] MALIKA PARIKH MD [facility] [employer] [address] [place] [address] 06/09/2019 15:10:15 06/21/2019 22:15:02 Gynecologic examination 76805315 Z01.419 Hormone re placement therapy 207129427 Z79.890 Tenderness of urinary bladder 218324231 R39.89 [id number] MANNY PONCE MD [facility] [address] [facility] [place] [address] 03/14/2020 09:24:24 03/14/2020 12:52:17 Pain in left knee 0771824591 20389 M25.562 Internal d erangement of left knee 1592313630 19625 M23.92 [id number] MANNY PONCE MD [facility] [address] [facility] [place] [address] 04/11/2020 14:37:53 04/11/2020 16:11:07 [id number] CINTHIA NGUYEN MD [facility] [address] [place] [address] 07/24/2020 14:40:04 07/25/2020 12:58:03 Chest pain 41209746 R07.9 Etiology of chest pain is unclear. Exercise cardiolite test is scheduled and angina precaution s given. Dyspnea 816365274 R06.00 Echo has been ordered. Asthma 152364732 J45.90 9 Stable. Smoker 12531979 F17.200 The patient has been advised on smoking cessation. [id number] Mahnaz Mitchell MD [facility] [address] [place] [address] 10/25/2020 11:15:51 10/25/2020 12:34:44 Pain of left wrist 5551761858 51220 M25.457 [id number] Mahnaz Mitchell MD [facility] [address] [place] [address] 11/15/2020 10:06:48 11/15/2020 12:17:18 Pain of left wrist 1170142593 69363 M25.532 Sprain of thumb 21711814 4 S63.682A [id number] MANNY PONCE MD [facility] [address] [place] [address] 06/30/2023 14:11:07 06/30/2023 16:06:21 Pain of left knee joint 2778296150 99439 M25.562 Patellofem oral syndrome of left knee 7675528834 634280 M22.2X2 [id number] MANNY PONCE MD [facility] [address] [place] [address] 10/06/2023 13:50:02 10/06/2023 14:19:17 Patellofemoral syndrome of left knee 0236460922 209575 M22.2X2 Pain of le ft knee joint 7558788492 68868 M25.386 [id number] MANNY PONCE MD [facility] [address] [facility] [place] [address] 11/12/2023 13:56:53 11/12/2023 15:17:40 Patellofemoral syndrome of left knee 1769797683 092958 M22.2X2 Pain of le ft knee joint 9492424161 37560 M25.562 Osteoarthr itis of left patellofemoral joint 1312794633 4635573 M17.12 Health Concerns Section Related Observation LastModified by Organization Detai ls LastModified Time None Recorded Concern Status LastModified by Organization Details LastModified Time None Recorded Advance Directives Directive N: Payers Insurance Date Sequence Insurance Name Policy Number Policy Bermudez Covered Member ID Bermudez Member ID Guarantor Name 11/10/2023 1 [place] Amanda Millan [id number] Amanda Millan Notes Date Note Type Note Provider Name and Address Organization Details Recorded Time 10/25/2020 text/html 35 yo LHD female c/o left hand pain and numbness s/p fall backwards onto out stretched hand from standing height 1 week ago. DOI: 10/18/2020. Patient seen at Urgent care that day and [facility] 2 days after injury, x-rayed, splinted, and referred to [facility] Surgery Clinic this AM. 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 Describes pain as sharp shooting pain. States all her fingers and hand are numb and she can't move fingers. We did however observe her moving wrist and all the fingers an her hand so I don't know if this is real or factitious. Denies previous left hand trauma. Denies fever/recent illness. No swelling. No ecchymosis. Skin intact. NSAID's have not helped at all as per patient. Mahnaz Mitchell MD [address] [facility], [place], [address], [facility] [place] 10/25/2020 15:57:13 11/15/2020 text/html 3 week follow-up for MRI results and to discuss treatment options for this 35 yo LHD female c/o left hand pain and numbness s/p fall backwards onto out stretched hand from standing height 1 week ago. DOI: 10/18/2020. Patient seen at Urgent care that day and [facility] 2 days after injury, x-rayed, splinted, and referred to Hand Surgery Clinic. 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 Describes pain as sharp shooting pain. States pain now localizes to left thumb CMC joint. Denies fever/recent illness. No swelling. No ecchymosis. Skin intact. NSAID's have not helped at all as per patient. MRI IMPRESSION: No acute fracture left wrist. Specifically the scaphoid is intact. Mild osteoarthrosis.Questi onable capsular/ligamentous sprain/partial tearing to the first carpometacarpal joint.Otherwise no definitive bone erosions, joint subluxations or tenosynovitis. Wrist held in pronation. ECU ulnar sided subluxation with some mild tendinosis/split.DICT ATED DATE: 11/01/2052 DICTATED BY: Samara Hernandez M.D., MD [address] [place] [address], [phone], [facility]14 [place] 11/15/2020 13:58:49 06/30/2023 text/html 38-year-old female seen in office today for evaluation of left knee pain. Patient states she has had left knee pain for the last 7 months or so. She denies any specific injury that caused her knee pain to begin. Patient has had surgery on her left foot about 3 months ago. She has been wearing a boot on the left foot since the surgery. She states that most of her knee pain is over the anterior part of the knee and radiates around to the backside of her knee. She denies any locking in the knee but does report some popping and crepitus with ambulating. Patient denies any neurosensory changes to the left leg. She rates her pain today 10/10. She currently is ambulating with a cane. Patient has seen our office for her left knee in the past back in 2019 and had MRI of the knee that revealed no ligament or meniscal injury. TREY BILLS [address] [place] [address], [place], [address], [facility]14 [place] 06/30/2023 17:33:49 11/12/2023 text/html 38-year-old female seen in office today for recheck of left knee pain. Patient has patellofemoral syndrome and arthritis of the knee. We did steroid injection in the knee on 06/30/23. She reports she received about 50% relief for about a month. She contineus to report anterior knee pain worse with going up stairs. She denies any recent injury to the knee. She recently had an ankle surgery on that same side 6 weeks ago. She rates her pain today a /. TREY BILLS [address] [facility], [place], [address], [facility] [place] 11/12/2023 14:56:41 OBGyn Episode No OBEpisode recorded.
[2025-07-23 01:03] VITALS: BP 120/82; PULSE 85; RESP 16; TEMP 37.2; O2SAT 96; BMI 33.3
[2025-07-23 01:08] VITALS: BP 120/82; PULSE 85; RESP 16; TEMP 37.2; O2SAT 96
[2025-07-23] MEDS: ONDANSETRON 4MG ODT 4 MG SL (01:20)
[2025-07-23] MEDS: CIPRO 0.3%-DEX 0.1% OTIC SUSP 7.5ML OT (01:31)
[2025-07-23 01:40] VITALS: BP 127/76; PULSE 81; RESP 18; TEMP 36.9; O2SAT 97
--- NOTE | 2025-07-23 01:41 | ED_ITS ---
Discharge Plan Disposition Patient Disposition: Home, Self-Care Condition: Good Prescriptions Prescriptions: New ondansetron 4 mg tablet,disintegrating 4 mg PO Q6H PRN (Reason: nausea and vomiting) Qty: 10 0RF No Action cetirizine 1 mg/mL solution PO Patient Comments: TAKE 2 TEASPOONFULS (10ML) BY MOUTH DAILY fluticasone propion-salmeterol [Advair HFA] 115-21 mcg/actuation HFA aerosol inhaler 2 puff inhalation BID 90 Days Qty: 12 3RF ondansetron 4 mg tablet,disintegrating 4 mg PO Q8H PRN (Reason: nausea and vomiting) Qty: 10 0RF fluticasone propionate [Flonase Allergy Relief] 50 mcg/actuation spray,suspension 2 spray intranasal DAILY Qty: 16 2RF Rx Instructions: administer into each nostril daily cholecalciferol (vitamin D3) 125 mcg (5,000 unit) capsule 125 mcg PO DAILY albuterol sulfate 90 mcg/actuation HFA aerosol inhaler 2 puff inhalation Q4-6H PRN (Reason: shortness of breath or wheezing) Qty: 8.5 2RF albuterol sulfate 2.5 mg /3 mL (0.083 %) solution for nebulization 2.5 mg inhalation Q6H PRN (Reason: shortness of breath or wheezing) Qty: 360 2RF estradiol 2 mg tablet 2 mg PO DAILY Qty: 30 2RF nicotine (polacrilex) [Nicorette] 4 mg gum 4 mg buccal Q2H PRN (Reason: nicotine cravings) Qty: 110 2RF Referrals Follow up/Referrals: Clyde Torres MD [Primary Care Provider, Family Practice] - See instructions Activity Restrictions/Add. Instructions Additional Instructions/Restrictions: You were evaluated in the ER and are believed to be appropriate for discharge at this time. Use the provided Ciprodex eardrops. Place 4 drops into each ear twice daily for 7 days. Lay with the ear up for 10 to 15 minutes before rolling over to do the other ear. Take prescribed ondansetron (Zofran) if needed for nausea. Drink plenty of water, Gatorade, Pedialyte to stay hydrated. Take Tylenol or ibuprofen if needed for pain, do not exceed the recommended dose on the bottle. Drink water and eat a small snack each time you take these medications to avoid side effects. Follow-up with your primary care doctor for reevaluation in 2 to 3 days. Return to the ER with any new, worsening, or otherwise concerning symptoms. Clinical Impressions Clinical Impression: Otitis externa, Nausea Instructions Patient Instructions: DI for Otitis Externa Print Language Print Language: Burkinan Discharge ED Provider: Suly Gore General Adult HPI General Chief complaint: Ear Stated complaint: ear pain, swelling, nausea Time Seen by Provider: 07/23/25 01:05 Mode of Arrival: Ambulatory Source of Information: Patient Description of Symptoms (Recalled from ER Triage Doc. by RN): PT presents to the ED for evaluation of bilateral ear pain, R being worse. Pain started 1 hour prior to arrival. PT has a hx of frequent swimmers ear. PT took 1,000 mg Tylenol 2 hours ago. PT stated she is also experiencing nausea. History of Present Illness HPI narrative: 40-year-old female presents to the ER complaining of bilateral ear pain, right worse than left. Patient reports pain started in the last couple hours prior to arrival. She states a frequent history of swimmers ear and states this feels identical. She has pain with manipulating either ear but the right is much worse than the left. Patient took Tylenol prior to arrival and states she is having some nausea as well. She denies fevers, chills, chest pain, difficulty breathing, cough, congestion, sore throat, vomiting, diarrhea, constipation, dysuria, hematuria, body aches, or any other associated symptoms. She has a history of GERD, complex regional pain syndrome, COPD. Related Data Home Medications ?Medication ?Instructions ?Recorded ?Confirmed cetirizine 1 mg/mL oral solution mg PO 03/16/24 cholecalciferol (vitamin D3) 125 125 mcg PO DAILY 02/2007/15/25 mcg (5,000 unit) capsule Previous Rx's ?Medication ?Instructions ?Recorded ondansetron 4 mg disintegrating 4 mg PO Q8H PRN nausea and 03/31/25 tablet vomiting #10 tabs albuterol sulfate 2.5 mg/3 mL 2.5 mg (3 mL) inhalation Q6H PRN 05/02/25 (0.083 %) solution for nebulization shortness of breat h or wheezing #360 mL albuterol sulfate 90 mcg/actuation 2 puff inhalation Q 4-6H PRN 05/02/25 aerosol inhaler shortness of breath or wheez ing #8.5 grams estradiol 2 mg tablet 2 mg PO DAILY #30 tabs 06/02 nicotine (polacrilex) 4 mg gum 4 mg buccal Q2H PRN anayeli otine 06/06/25 (Nicorette) cravings #110 ea fluticasone propionate 115 2 puff inhalation BID 90 da ys #12 07/04/25 mcg-salmeterol 21 mcg/actuation grams HFA inhaler (Advair HFA) fluticasone propionate 50 2 spray intranasal DAILY #16 grams 07/15/25 mcg/actuation nasal spray,suspension (Flonase Allergy Relief) ondansetron 4 mg disintegrating 4 mg PO Q6H PRN nausea and 07/23/25 tablet vomiting #10 tabs Allergies Allergy/AdvReac Type Severity Reaction Status Date / Time Iodinated Contrast Media Allergy Severe angioedema Verified 07/15/25 13:19 aspirin (ASPIRIN) Allergy Unknown Unknown Verified 07/15/25 13:19 allergy reaction codeine (CODEINE) Allergy Unknown Unknown Verified 07/15/25 13:19 allergy reaction orange juice (From ORANGE Allergy Unknown DIARRHEA Verified 07/15/25 13:19 JUICE (FOOD/DRUG)) Penicillins (PENICILLINS) Allergy Unknown SOB/CHEST Verified 07/15/25 13:19 TIGHTNESS propoxyphene (PROPOXYPHENE) Allergy Unknown Unknown Verified 07/15/25 13:19 allergy reaction venom-honey bee (BEE VENOM Allergy Unknown Unknown Verified 07/15/25 13:19 (HONEY BEE)) allergy reaction acetaminophen (From Percocet) Allergy Unknown Verified 07/15/25 13:19 allergy reaction amoxicillin Allergy Unknown Verified 07/15/25 13:19 allergy reaction oxycodone (From Percocet) Allergy Unknown Verified 07/15/25 13:19 allergy reaction ibuprofen (IBUPROFEN) AdvReac Unknown UPSET Verified 07/15/25 13:19 STOMACH promethazine (PROMETHAZINE) AdvReac Unknown MAKES HER Verified 07/15/25 13:19 THROW UP From RED DYE (FOOD/DRUG) Allergy Severe S-SWELLS-OR Uncoded 07/15/25 13:19 AL/THROAT GREEN JELLO Allergy Intermediate Unknown Uncoded 07/15/25 13:19 allergy reaction From ORANGE JUICE (FOOD/DRUG) Allergy Unknown DIARRHEA Uncoded 07/15/25 13:19 [facility] Disclaimer: The information contained in this section may have been updated after the patient was seen, as this information can be updated by other users. Medical History (Updated 07/23/25 @ 01:15 by Suly Gore MD) Eustachian tube dysfunction Nausea Smoking greater than 20 pack years Dyspnea on exertion Allergic rhinitis Influenza Encounter for cholecystectomy Gastritis Claustrophobia Pancreatitis COPD (chronic obstructive pulmonary disease) Asthma Surgical History History of appendectomy Hx of hand surgery Previous section H/O oophorectomy History of partial hysterectomy History of ankle surgery Family History Mother Cancer lung Father Cancer brain, lung Grandmother , maternal Cancer colon Diabetes Grandfather , paternal Heart attack massive Family/Other Cancer aunt with colon cancer Social History Smoking Status: Current every day smoker tobacco type: cigarettes alcohol intake: never substance use type: denies use current occupational status: other Travel in the last 8 weeks?: None Have you lived/traveled outside [place] in past 30 days?: No Contact w/someone who lives/traveled outside [place] past 30 days?: No Exposure to someone with infectious disease in past 14 days?: No Do you have a fever (greater than 100.4 F or 38 C)?: No Have you tested positive for COVID-19?: No Exposed to someone with COVID-19 in past 14 days?: No Do you have a sore throat?: No Do you have a cough?: No Do you have any weakness?: No Do you have any diarrhea?: No Are you experiencing any unusual bleeding?: No Do you have any muscle aches/pain?: No Do you have any abdominal pain?: No Are you experiencing loss of taste or smell?: No Other Medical History Have you received the Flu Vaccine for this season: No Have you received the Pneumonia Vaccine: No ROS Obtained: Yes Systems reviewed as appropriate & no additional complaints except as documented Per HPI Physical Exam General General appearance: alert and in no apparent distress Head Head exam: atraumatic and normocephalic Eye Eye exam: Present PERRL and EOMI ENT ENT exam: Present normal oropharynx, mucous membranes moist and TM's normal bilaterally; Absent normal external ear exam (Evidence of otitis externa bilaterally, right worse than left, no evidence of malignant otitis externa or necrotic infection. Pain with manipulation of both auricles, right worse than left, erythema with swelling of bilateral ear canals) Neck Neck exam: Present normal inspection and full ROM Chest Chest inspection: Present symmetric chest wall rise Respiratory Respiratory exam: Present normal lung sounds bilaterally; Absent respiratory distress, wheezes or stridor Cardiovascular Cardiovascular exam: Present regular rate and normal rhythm Abdominal Exam Abdominal exam: Present soft; Absent distention, tenderness, guarding or rebound Extremities Exam Extremities exam: Present full ROM Neurological Exam Neurological exam: Present alert and oriented X3; Absent motor sensory deficit Psychiatric Psychiatric exam: Present normal affect and normal mood Skin Skin exam: Present warm and dry Medical Decision Making Medical Records Medical records reviewed: Yes I reviewed the patient's medical records. Screening: Per USPSTF and CDC recommendations, given the prevalence of disease in our region, it is our hospital?s policy to screen for HIV and viral Hepatitis for all patients aged 18 and over and those with ongoing risk factors. Gage Inquiry Pt receiving controlled substance: No Vital Signs: 07/23/25 01:03 07/23/25 01:08 07/23/25 01:40 Temperature 98.9 F 98.9 F 98.5 F Temperature Source Oral Oral Pulse Rate 85 81 Pulse Rate [Right] 85 Respiratory Rate 16 16 18 Blood Pressure 120/82 127/76 Blood Pressure [Right Arm] 120/82 Blood Pressure Mean [Right Arm] 94 02 Sat by Pulse Oximetry 96 96 Oxygen Delivery Method Room Air Room Air Room Air Orders (Tests/Meds): ED MEDICATIONS Discontinued Medications Generic Name Dose Route Start Last Admin Trade Name Freq PRN Reason Stop Dose Admin Ciprofloxacin/Dexamethasone 0.4 ml 07/23/25 01:11 07/23/25 01:31 Cipro 0.3%-Dex 0.1% Otic Susp 7.5ml OT 07/23/25 01:12 0.4 ml ONCE ONE Administration Ondansetron HCl 4 mg 07/23/25 01:11 07/23/25 01:20 Ondansetron 4mg Odt SL 07/23/25 01:12 4 mg ONCE ONE Administration Medical Decision Narrative: In summary, this 40-year-old female with comorbidities described in the HPI presents to the emergency department today with concerns of ear pain, nausea. On initial evaluation patient is hemodynamically stable, afebrile, overall well- appearing. Benign cardiopulmonary exam, benign abdominal exam. Patient has evidence of otitis externa bilaterally. Differential diagnosis includes but is n ot limited to otitis externa, otitis media, foreign body, regarding the nausea I considered the possibility of viral syndrome, I considered possible intra- abdominal surgical pathology such as liver problems, appendicitis, bowel obstruction, etc. but have extremely low suspicion for this since patient has had nausea for 1 hour and has no abdominal tenderness, no vomiting, completely benign abdominal exam. I do not believe patient requires any labs or imaging at this time. Ciprodex was administered in the ER as well as Zofran. Ciprodex was provided to the patient with explicit instructions on use of these drops. She was also provided prescription for Zofran for outpatient management of symptoms. Patient was given instructions on symptomatic management, follow up instructions, and return precautions for the emergency department. Patient indicated understanding and was discharged in stable condition. Critical Care Critical Care Time Critical Care Time: No
== END 2025-07-23 02:01 | disposition home or self-care (01) ==
PROVIDERS: Emergency Provider Emergency Medicine; PCP Family Medicine
DX: H60.93 Unspecified otitis externa, bilateral (principal); R11.0 Nausea
CPT/HCPCS: 99283; Q0162

== ENCOUNTER 2025-08-01 16:16 | Emergency (ER) | payer OTHER, SELFPAY ==
[2025-08-01 16:40] VITALS: BP 140/96; PULSE 89; RESP 18; TEMP 37.2; O2SAT 100; BMI 33.3
--- NOTE | 2025-08-01 16:43 | XR_ITS ---
PROCEDURE INFORMATION: Exam: XR Left Foot Exam date and time: 08/01/2025 4:40 PM Age: 40 years old Clinical indication: Injury or trauma; Other: Dropped a metal can of vegetables onto left foot; Other: Pain; Additional info: Possible injury, dropped item on foot TECHNIQUE: Imaging protocol: Radiologic exam of the left foot. Views: 3 or more views. COMPARISON: CR XR FOOT WT BEARING LT 3V 06/23/2025 2:39 PM FINDINGS: Bones/joints: Normal. Soft tissues: Normal. IMPRESSION: No acute findings.
--- OUTSIDE RECORDS SUMMARY | 2025-08-01 16:47 | XMS_ITS | Data Portability ---
Author Organization [place] [facility] [place], ADMIN Address [address] [place] [address] Care Team Providers Care Branch Administrator Name Role Phone SHANNON QUIROS Primary Care Provider Assessment Encounter Date Assessment Date Assessment LastModified by Organization Details LastModified Time 10/25/2020 10/25/2020 35 yo LHD female c/o left hand pain and numbness s/p fall backwards onto out stretched hand from standing height 1 week ago. DOI: 10/18/2020. Patient seen at Urgent care that day and [facility] 2 days after injury, x-rayed, splinted, and referred to Hand Surgery Clinic this AM. Pt states pain located at left hand 9-10/10 at rest, 9-10/10 with palpation or use of left hand system validation engineer. Describes pain as sharp shooting pain. States [...] tried and failed NSAIDs RTC after MRI [email or web address] Not available 10/25/2020 15:57:09 11/15/2020 11/15/2020 3 week follow-up for MRI results and to discuss treatment options for this 35 yo LHD female c/o left hand pain and numbness s/p fall backwards onto out stretched hand from standing height 1 week ago. DOI: 10/18/2020. Patient seen at Urgent care that day and [facility] 2 days after injury, x-rayed, splinted, and referred to [facility] Surgery Clinic. Pt states pain located at left hand now 2-3/10 at rest, 6-7/10 with palpation or use of left hand system validation engineer. Describes pain as sharp shooting pain. States [...] tried and failed NSAIDs RTC 1 month Not available 11/15/2020 13:58:42 06/30/2023 06/30/2023 X-rays [...] She is actually about to move to [place] in the next month. She is requesting [...] in office as needed from this point. Not available 11/12/2023 14:52:57 Plan of Treatment Reminders Order Date Submit Date Provider Last Modified By Organization Details Last Modified Time Details Appointments None recorded. Lab None recorded. Referral None recorded. Procedures None recorded. Surgeries None recorded. Imaging XR, knee, 3 view 2022 023 [email or web address] [facility], [address] [facility], [place], [address], 3 16:06:22 XR, wrist, 3 or more view 2020 021 [email or web address] 4 [place] [facility] (Radiology), [address], [place], [address], 1 09:08:03 MRI, wrist, w/o contrast 2020 021 [email or web address] 4 [facility], [address], [place], [address], 09:08:03 Medication Orders lidocaine (PF) 10 mg/mL (1 %) injection solution 2023 024 [email or web address] 8 Not available 4 21:23:06 Marcaine 0.5 % (5 mg/mL) injection solution 2023 024 [email or web address] 8 Not available 4 21:23:06 Celestone Soluspan 6 mg/mL suspension for injection 2023 024 [email or web address] 8 Not available 4 21:23:06 lidocaine (PF) 10 mg/mL (1 %) injection solution 2022 023 [email or web address] Not available 3 17:33:52 Marcaine (PF) 0.5 % (5 mg/mL) injection solution 2022 023 Not available 3 17:33:52 Kenalog 40 mg/mL suspension for injection 2022 023 [email or web address] Not available 3 17:33:52 Patient TargetsNo targets recorded. Patient Instructions Encounter Date Encounter Id Patient Instructions Last Modified By Organization Details Last Modified Time 10/25/2020 [id number] Discussed as above RTC after MRI [email or web address] Not available 10/25/2020 15:53:01 11/15/2020 [id number] Discussed as above RTC 1 month Not available 11/15/2020 13:58:28 Reason for Referral [...] Doctor : Other Health care Provid er: [email or web address] [place] [address] (Radiology) [address], [place], [address], 10/25/2020 17:01:57 11/01/19 21 11/01/2020 bl MRI [...] extrem ity coil on a [facility] 1.5 Eloisa magnet multip lanar multis equenc [...] ng Provid er: Result Copies To: Attend [facility] Doctor : CAPO MITCHELL Referr [facility] Doctor : Jayro hurd Doctor : Arlene burnett Doctor : Other Health care Provid er: [email or web address] [facility] (Radiology) [address], [place], [address], 11/03/2020 10:03:30 11/01/1911/01/2020 MRI, upper extre mity [...] extrem ity coil on a [facility] 1.5 Eloisa magnet multip lanar multis equenc [...] ferrera Provid er: Result Copies To: Attend [facility] Doctor : CAPO MITCHELL Referr ing Doctor : Jayro hurd Doctor : Arlene burnett Doctor : Other Health care Provid er: [email or web address] [facility] (Radiology) [address] [facility], [place], [address], 11/03/2020 10:03:31 06/30/20 23 06/30/2023 xr knee [address] [place] [facility] Patimecca t: AMANDA MILLAN 7 : [phone] Sex: Female Locati on: [facility] Orderbi ferrera Physic cherise: SEDRICK LO [...] ronic Signat ure): 2022 04:51 pm CDT [email or web address] [facility] (Radiology) [address], [place], [address], 06/30/2023 17:57:29 Result Notes Documentation Provider Name [...] Other Healthcare Provider: Sara torres [facility] [place] 11/03/2020 10:03:31 Problems Name Problem SNOMED Code Status Onset Date Resolution Date Notes Provider Name and Address Organization Details Recorded Time Chronic obstructive pulmonary disease 89713758 Active 2017 SANDEEP Zamora, [address] 8 15:20:03 Asthma 557882255 Active 2017 [facility]EP [facility], [facility] [place] 8 15:20:09 Chest pain 68228968 Active 2019 Tanna torres [place]ERT[place] Venkatesh [facility] [place] 0 15:59:57 Smoker 89424248 Active 2019 Tanna torres [facility]ERT[place] [facility]atesh [facility] [place] 0 16:00:32 Dyspnea 672815614 Active 2019 Tanna torres BERTO Riddle [facility] [place] 0 16:00:39 Problem Notes None recorded. Procedures Surgical History Date Name Laterality Status Provider Name and Address Organization Details Recorded Time 08/11/20 17 Date of Last Pap Smear completed SANDEEP Zamora [facility] [place] 06/23/2018 14:49:40 delivery completed SANDEEP Zamora [place] 06/23/2018 14:56:06 Tubal Ligation completed SAN[facility]EP Zamora [facility] [place] 06/23/2018 14:56:13 Other completed SANDEEP Zamora [place] 06/23/2018 14:57:00 Other completed SANDEEP Zamora [place] 06/23/2018 14:57:25 Appendectomy completed SANDEEP Zamora [place] 06/23/2018 14:57:29 Cholecystectomy completed SAN[facility]EP Pérez [facility] [place] 07/24/2020 15:17:44 Imaging Results None recorded. Procedure Notes None recorded. Medical Equipment None Reported. Allergies Allergen ID Allergen Name Allergen Category Reaction Reaction Severity Criticality Documentation Date Start Date Code Code System Note Provider Name and Address Organization Details Recorded Time 21201 aspirin medicatio n Not available Not available Not available 06/23/2018 1191 RxNorm SANDEEP Zamora [address] 8 14:40:16 11396 codeine medicatio n Not available Not available Not available 06/23/2018 2670 RxNorm SANDEEP Zamora [address] 8 14:40:22 45247 orange juice food,medi cation Not available Not available Not available 06/23/2018 66043 66 RxNorm SANDEEP Zamora [address] 8 14:40:32 54858 Product containin g penicilli n (product) medicatio n Not available Not available Not available 06/23/2018 07116 8001 SNOMED SANDEEP Zamora [address] 8 14:40:52 32524 propoxyph shelton medicatio n Not available Not available Not available 06/23/2018 8785 RxNorm SANDEEP Zamora [address] 8 14:41:04 14680 honey bee venom environme nt Not available Not available Not available 06/23/2018 12582 7 RxNorm Caron Garcia RN null, [address] 8 14:41:12 71156 ibuprofen medicatio n Not available Not available Not available 06/23/2018 5640 RxNorm Caron Garcia RN null, [address] 8 14:41:20 82381 promethaz ine medicatio n Not available Not available Not available 06/23/2018 8745 RxNorm Caron Garcia RN null, [address] 8 14:41:28 73184 red dye food,medi cation Not available Not available Not available 06/23/2018 Caron Garcia RN null, [address] 8 14:41:40 93259 acetamino phen / oxycodone medicatio n other Not available Not available 03/14/2020 41996 3 RxNorm rt side goes numb Sarah LUCI Lauren null, [address] 0 10:15:41 08487 Darvocet- N medicatio n Not available Not available Not available 07/24/2020 Sylvie Crystal RN null, [address] 0 15:16:15 Medications Name Sig Start [...] Address Organization Details Last Updated DateTime 4 49502.5 4 g 36.1 kg/m2 165.1 cm 89 /min 3 124/78 mm[Hg] Naif Frey [facility] [place] 4 14:02:10 Date Recorded Body height Body mass index (BMI) Body weight Heart rate Body temperature Pain severity - 0-10 verbal numeric rating [Score] - Reported Systolic And Diastolic Provider Name and Address Organization Details Last Updated DateTime 1 165.1 cm 28.1 kg/m2 03426.1 1 g 87 /min 96.9 [degF] 10 123/90 mm[Hg] Ligia Calzada RT(R), ROT, DIRECT[facility] [place] 1 12:06:55 Date Recorded Body height Body mass index (BMI) Body weight Heart rate Pain severity - 0-10 verbal numeric rating [Score] - Reported Systolic And Diastolic Provider Name and Address Organization Details Last Updated DateTime 4 165.1 cm 36.3 kg/m2 53460.1 4 g 76 /min 8 120/76 mm[Hg] Naif Frey [address] 4 14:26:14 Date Recorded Body height Body mass index (BMI) Body weight Heart rate Body temperature Pain severity - 0-10 verbal numeric rating [Score] - Reported Systolic And Diastolic Provider Name and Address Organization Details Last Updated DateTime 1 165.1 cm 28.1 kg/m2 37637.1 1 g 97 /min 97.3 [degF] 8 115/74 mm[Hg] Sara Peña LPN [address] 1 10:18:49 Date Recorded Heart rate Body weight Pain severity - 0-10 verbal numeric rating [Score] - Reported Systolic And Diastolic Provider Name and Address Organization Details Last Updated DateTime 06/30/2023 94 /min 31164.18 g 10 122/70 mm[Hg] Lizzeth Carlisle [address] 06/30/2023 15:02:57 Social History Question Answer Notes LastModified by Organizat ion Details LastModified Time Tobacco Smoking Status Current Some Day Smoker Caron Garcia RN [facility], [address] 06/23/2018 14:52:54 Do You Have An Advance Directive? No [email or web address] Information not available 06/23/2018 Is Blood Transfusion Acceptable In An Emergency? Yes Information not available 06/23/2018 What Is Your Level Of Caffeine Consumption? Occasional [email or web address] Information not available 06/23/2018 What Type Of Diet Are You Following? REGULAR [email or web address] Information not available 06/23/2018 Which Illicit Or Recreational Drugs Have You Used? Denies [email or web address] Information not available 06/23/2018 Education 12 [email or web address] Information no t available 06/23/2018 Which Of Your Hands Is Dominant? Left celledge Information not available 03/14/2020 Live Alone Or With Others? With Others [email or web address] Information not available 06/23/2018 Marital Status [email or web address] Informatio n not available 10/25/2020 What Was The Date Of Your Most Recent Tobacco Screening? 10/25/2020 [email or web address] Information not available 10/25/2020 How Many Children Do You Have? 2 [email or web address] Information not available 06/23/2018 Performs Monthly Self-breast Exam? No [email or web address] Information no t available 06/23/2018 What Is Your Relationship Status? Other [email or web address] Information not available 06/23/2018 Seat Belts Used Routinely Yes [email or web address] Information not available 06/23/2018 Are You Sexually Active? Yes [email or web address] Information not available 06/23/2018 How Much Tobacco Do You Smoke? 0.5 PPD [email or web address] Information not available 10/25/2020 General Stress Level Medium [email or web address] Information not available 06/23/2018 Do You Use Sunscreen Routinely? Yes [email or web address] Information not available 06/23/2018 Sex: Unknown Functional Status Question Answer Note LastModified by Organizat ion Details LastModified Time What is your level of alcohol consumption? None Information not available 06/23/2018 Do you or have you ever used smokeless tobacco? Never used smokeless tobacco Information not available 06/09/2019 Are you currently employed? No [email or web address] Information not available 06/23/2018 Are you able to care for yourself independently ? Yes [email or web address] Information not available 10/25/2020 What is your occupation? disable Learning disability [email or web address] Information not available 10/25/2020 Do you or have you ever used e-cigarettes or vape? Never used electronic cigarettes Information not available 06/09/2019 What is your exercise level? Moderate [email or web address] Information not available 06/23/2018 Mental Status None recorded. Family History Relationship Description Onset Age of this Age Resolved Age Notes LastModified by Organization Details LastModified Time Mother Malignant neoplasm of lung Not available 2017 14:51:17 Father Heart disease [email or web address] Not available 2017 14:51:37 Father Seizure [email or web address] Not available 06/23/2018 14:51:44 Maternal Grandfather Heart disease [email or web address] Not available 2017 14:52:29 Medical History Condition Response RHEUMATIC FEVER N STROKE N HORMONE IMBALANCE N DIABETES N RADIATION / CHEMOTHERAPY N SEIZURES N DEPRESSION (INCLUDING POST ) N FEMALE PROBLEMS / INFECTIONS Y BOWEL PROBLEMS N HAVE YOU BEEN HOSPITALIZED OR SEEN IN [facility] IN THE PAST YEAR ? N MIGRAINES N THYROID DISEASE N BREAST PROBLEMS N HERNIATED DISC N HIV / AIDS N OBESITY N ANEURYSM N OSTEOPOROSIS N URINARY/BLADDER/KIDNEY PROBLEMS Y CANCER N ARTHRITIS N HEADACHES N USE OF BLOOD THINNERS N SKIN PROBLEMS N SICKLE CELL N HIGH CHOLESTEROL N BLOOD CLOTS N ASTHMA Y HEPATITIS / LIVER DISEASE N PULMONARY DISEASE Y SLEEP DISORDER N HERPES N ALLERGIES N ANEMIA N VARICOSITIES N VASCULAR DISEASE N DIZZINESS N GERD [...] ICD10 Code Diagnosis IMO Codes Diagnosis Note [id number] MALIKA PARIKH MD [facility] [employer] [address] [facility] [place] [address] 06/23/2018 14:24:32 06/23/2018 15:49:43 Hormone replacement therapy 439373554 Z79.890 [id number] MALIKA PARIKH MD [facility] [employer] [address] [facility] [place] [address] 06/09/2019 15:10:15 06/21/2019 22:15:02 Gynecologic examination 56632886 Z01.419 Hormone re placement therapy 588489704 Z79.890 Tenderness of urinary bladder 388944792 R39.89 [id number] MANNY PONCE MD [facility] [address] [facility] [place] [address] 03/14/2020 09:24:24 03/14/2020 12:52:17 Pain in left knee 7431146557 23627 M25.562 Internal d erangement of left knee 4158714503 11100 M23.92 [id number] MANNY PONCE MD [facility] [address] [facility] [place] [address] 04/11/2020 14:37:53 04/11/2020 16:11:07 [id number] CINTHIA NGUYEN MD [facility]Card [facility] [address] [address] 07/24/2020 14:40:04 07/25/2020 12:58:03 Chest pain 74770443 R07.9 Etiology of chest pain is unclear. Exercise cardiolite test is scheduled and angina precaution s given. Dyspnea 016460198 R06.00 Echo has been ordered. Asthma 947888933 J45.90 9 Stable. Smoker 08492588 F17.200 The patient has been advised on smoking cessation. [id number] Mahnaz Mitchell MD [facility] [address] [place] [address] 10/25/2020 11:15:51 10/25/2020 12:34:44 Pain of left wrist 5897402768 02665 M25.511 [id number] Mahnaz Mitchell MD [facility] [address] [place] [address] 11/15/2020 10:06:48 11/15/2020 12:17:18 Pain of left wrist 9587778729 84863 M25.532 Sprain of thumb 34612589 4 S63.682A [id number] MANNY PONCE MD [facility] [address] [place] [address] 06/30/2023 14:11:07 06/30/2023 16:06:21 Pain of left knee joint 0197206244 52329 M25.562 Patellofem oral syndrome of left knee 9288225730 655403 M22.2X2 [id number] MANNY PONCE MD [facility] [address] [place] [address] 10/06/2023 13:50:02 10/06/2023 14:19:17 Patellofemoral syndrome of left knee 3855108807 065832 M22.2X2 Pain of le ft knee joint 7365876941 27591 M25.703 [id number] MANNY PONCE MD [facility] [address] [facility] [place] [address] 11/12/2023 13:56:53 11/12/2023 15:17:40 Patellofemoral syndrome of left knee 3036639224 068929 M22.2X2 Pain of le ft knee joint 3325088184 83082 M25.562 Osteoarthr itis of left patellofemoral joint 3451259852 3794310 M17.12 Health Concerns Section Related Observation LastModified by Organization Detai ls LastModified Time None Recorded Concern Status LastModified by Organization Details LastModified Time None Recorded Advance Directives Directive N: Payers Insurance Date Sequence Insurance Name Policy Number Policy Bermudez Covered Member ID Bermudez Member ID Guarantor Name 11/10/2023 1 [place] Amanda Millan [id number] Amanda Millan Notes Date Note Type Note Provider Name and Address Organization Details Recorded Time 10/25/2020 text/html 35 yo LHD female c/o left hand pain and numbness s/p fall backwards onto out stretched hand from standing height 1 week ago. DOI: 10/18/2020. Patient seen at Urgent care that day and [facility] 2 days after injury, x-rayed, splinted, and referred to Hand Surgery Clinic this AM. Pt states pain located at left hand 9-10/10 at rest, 9-10/10 with palpation or use of left hand system validation engineer. Describes pain as sharp shooting pain. States [...] as per patient. Mahnaz Mitchell MD [address] [facility], [place], [address], [facility] [place] 10/25/2020 15:57:13 11/15/2020 text/html 3 week follow-up for MRI results and to discuss treatment options for this 35 yo LHD female c/o left hand pain and numbness s/p fall backwards onto out stretched hand from standing height 1 week ago. DOI: 10/18/2020. Patient seen at Urgent care that day and [facility] 2 days after injury, x-rayed, splinted, and referred to Hand Surgery Clinic. Pt states pain located at left hand now 2-3/10 at rest, 6-7/10 with palpation or use of left hand system validation engineer. Describes pain as sharp shooting pain. States [...] 11/01/2052 DICTATED BY: Samara Hernandez M.D., MD [address] [place] [address], [phone], [facility] [place] 11/15/2020 13:58:49 06/30/2023 text/html 38-year-old female seen [...] no ligament or meniscal injury. TREY BILLS [address] [place] [address], [place], [address], [facility] [place] 06/30/2023 17:33:49 11/12/2023 text/html 38-year-old female seen [...] pain today a /. TREY BILLS [address] [facility], [place], [address], [facility] [place] 11/12/2023 14:56:41 OBGyn Episode No OBEpisode recorded.
--- OUTSIDE RECORDS SUMMARY | 2025-08-01 16:47 | XMS_ITS | Data Portability ---
Author Organization [facility], [facility] Address [address] [place] [address] Assessment Encounter Date Assessment Date Assessment LastModified [...] quantitativ e, serum or plasma 2022 023 [facility], [address] [place], [address], 3 13:44:22 ESR (erythrocyt e sedimentati on rate), blood 2022 023 [facility], [address] [place], [address], 3 13:44:21 RIVERA (antinuclea r antibodies) screen, ifa, serum 2022 023 [facility], [address] [place], [address], 3 11:42:03 TSH + free T4, serum 2022 023 [facility], [address], [place], [address], 3 15:09:01 lipid panel, serum 2022 023 [facility], [address], [place], [address], 3 15:09:02 vitamin D, 25-hydroxy, total, serum 2022 023 [facility], [address], [place], [address], 3 15:09:00 vitamin B12 + folate, serum or blood 2022 023 [facility], [address], [place], [address], 3 15:09:01 lipid panel, serum [email or web address] [facility], [address], [place], [address], 3 08:21:45 CMP, serum or plasma 2022 023 [facility], [address], [place], [address], 3 15:09:02 CBC w/ diff 2022 023 [facility], [address], [place], [address], 3 15:08:59 food allergen panel, serum 2022 023 [facility], [address], [place], [address], 3 18:22:28 hepatitis C virus Ab, serum 2022 023 [facility], [address], [place], [address], 3 18:22:27 HbA1c (hemoglobin A1c), blood 2022 023 [facility], [address], [place], [address], 3 15:08:59 HIV (1+2) Ab, rapid, unspecified specimen 2022 023 [facility], [address], [place], [address], 3 15:09:00 Referral None recorded. Procedures None recorded. Surgeries None recorded. Imaging XR, hand, 2 view 2022 023 [email or web address] [facility] [place], [address], [place], [address], 3 13:45:42 Medication Orders estradiol 2 mg [...] 90 mcg/actuati on aerosol inhaler 2023 024 [email or web address] Not available 4 15:52:32 estradiol 2 mg [...] By Organization Details Last Modified Time 11/26/2022 [id number] heart-healthy diet: care instructions Not available 11/27/2022 16:16:29 walking for exercise: care instructions Not available 11/27/2022 16:16:29 Reason for Referral None Reported. Results Created Date Observation Date Name Description Value Unit Range Abnormal Flag Note LastModifiedBy Organization Detail LastModifiedTime 11/27/1911/27/2022 CBC WBC 7.3 x10(3 )/uL 3.1 - 10.3 Not Available [facility] [address] [place], [address], 11/27/2022 15:08:59 11/27/19 23 11/27/2022 CBC RBC 4.23 x10(6 )/uL 3.20 - 4.60 Not Available [facility] [address] [place], [address], 11/27/2022 15:08:59 11/27/19 23 11/27/2022 CBC HGB 12.3 g/dL 9.9 - 13.6 Not Available [facility] [address] [place], [address], 11/27/2022 15:08:59 11/27/19 23 11/27/2022 CBC HCT 39.2 % 30.2 - 42.3 Not Available [facility] [address] [place], [address], 11/27/2022 15:08:59 11/27/19 23 11/27/2022 CBC MCV 92.7 fL 78.6 - 102.2 Not Available [facility] [address] [place], [address], 11/27/2022 15:08:59 11/27/19 23 11/27/2022 CBC MCH 29.1 pg 25.2 - 34.7 Not Available [facility] [address] [place], [address], 11/27/2022 15:08:59 11/27/19 23 11/27/2022 CBC MCHC 31.4 g/dL 31.3 - 35.4 Not Available [facility] [address] [place], [address], 11/27/2022 15:08:59 11/27/19 23 11/27/2022 CBC platelet count 388 % 128 - 434 Not Available [facility] [address] [place], [address], 11/27/2022 15:08:59 11/27/19 23 11/27/2022 CBC neut% 50.3 % 43.7 - 77.1 Not Available [facility] [address] [place], [place], [address], 11/27/2022 15:08:59 11/27/19 23 11/27/2022 CBC lymph% 31.1 % 15.0 - 45.8 Not Available [facility] [address] [place], [place], [address], 11/27/2022 15:08:59 11/27/19 23 11/27/2022 CBC mxd% 18.6 % 1.3 - 25.9 Not Available [facility] [address], [place], [place], [address], 11/27/2022 15:08:59 11/27/19 23 11/27/2022 CBC neut# 3.6 x10(3 )/uL 1.6 - 6.9 Not Available [facility] [address] [place], [place], [address], 11/27/2022 15:08:59 11/27/19 23 11/27/2022 CBC lymph# 2.3 x10(3 )/uL 0.9 - 2.8 Not Available [facility] [address] [place], [place], [address], 11/27/2022 15:08:59 11/27/19 23 11/27/2022 CBC mxd# 1.4 x10(3 )/uL 0.1 - 1.6 Not Available [facility] [address], [place], [address], 11/27/2022 15:08:59 11/27/19 23 11/27/2022 CBC RDW-SD 48.5 fL 35.3 - 48.9 Not Available [facility] [address], [place], [address], 11/27/2022 15:08:59 11/27/19 23 11/27/2022 CBC RDW-CV 13.2 % 10.6 - 15.7 Not Available [facility] [address] [place], [address], 11/27/2022 15:08:59 11/27/19 23 11/27/2022 CBC MPV 8.3 fL 8.5 - 12.4 low Not Available [facility] [address] [place], [address], 11/27/2022 15:08:59 11/27/19 23 11/27/2022 HGBA1 C HGBA1C 5.4 % 4.0 - 6.0 non-d iabet ic range : 4-6% ADA Targe t:<7% Above Targe t: 8-12% non-d iabet ic range : 4-6% ADA Targe t:<7% Above Targe t: 8-12% Not Available [facility] [address] [place], [address], 11/27/2022 15:08:59 11/27/19 23 11/27/2022 RAPID HIV 1/2 AB rapid HIV 1/2 Ab Negati ve Not Available [facility] [address] [place], [address], 11/27/2022 15:09:00 11/27/19 23 11/27/2022 VITAM IN D TOTAL vitamin D total 20.7 NG/mL 29.0 - 100.0 low Not Available [facility] [address] [place], [address], 11/27/2022 15:09:00 11/27/19 23 11/27/2022 VITAM IN B12 folate 9.73 NG/mL 2.76 - 19.50 Not Available [facility] [address] [place], [address], 11/27/2022 15:09:01 11/27/19 23 11/27/2022 VITAM IN B12 vitamin B12 307 pg/mL 239 - 931 Not Available [facility] [address] [place], [address], 11/27/2022 15:09:01 11/27/19 23 11/27/2022 TSH free T4 1.14 NG/mL 0.88 - 2.19 Not Available [facility] [address] [place], [address], 11/27/2022 15:09:01 11/27/19 23 11/27/2022 TSH TSH 0.841 mIU/L 0.465 - 4.680 Not Available [facility] [address] [place], [address], 11/27/2022 15:09:01 11/27/19 23 11/27/2022 COMPR EHENS JUNE METAB OLIC PANEL (CMP) albumin 4.3 g/dL 3.5 - 5.0 Not Available [facility] [address] [place], [address], 11/27/2022 15:09:02 11/27/19 23 11/27/2022 COMPR EHENS JUNE METAB OLIC PANEL (CMP) chloride 101 mmol/ L 98 - 107 Not Available [facility] [address] [place], [address], 11/27/2022 15:09:02 11/27/19 23 11/27/2022 COMPR EHENS JUNE METAB OLIC PANEL (CMP) creatinine 0.65 mg/dL 0.52 - 1.04 Not Available [facility] [address] [place], [address], 11/27/2022 15:09:02 11/27/19 23 11/27/2022 COMPR EHENS JUNE METAB OLIC PANEL (CMP) eco2 31 mmol/ L 22 - 30 high Not Available [facility] [address] [place], [address], 11/27/2022 15:09:02 11/27/19 23 11/27/2022 COMPR EHENS JUNE METAB OLIC PANEL (CMP) glucose 99 mg/dL 74 - 106 Not Available [facility] [address] [place], [address], 11/27/2022 15:09:02 11/27/19 23 11/27/2022 COMPR EHENS JUNE METAB OLIC PANEL (CMP) potassium 4.30 mmol/ L 3.50 - 5.10 Not Available [facility] [address] [place], [address], 11/27/2022 15:09:02 11/27/19 23 11/27/2022 COMPR EHENS JUNE METAB OLIC PANEL (CMP) alkaline phos 87 U/L 38 - 126 Not Available [facility] [address] [place], [address], 11/27/2022 15:09:02 11/27/19 23 11/27/2022 COMPR EHENS JUNE METAB OLIC PANEL (CMP) sodium 138.0 mmol/ L 137.0 - 145.0 Not Available [facility] [address] [place], [address], 11/27/2022 15:09:02 11/27/19 23 11/27/2022 COMPR EHENS JUNE METAB OLIC PANEL (CMP) total bilirubin <0.45 mg/dL 0.2 - 1.3 Not Available [facility] [address] [place], [address], 11/27/2022 15:09:02 11/27/19 23 11/27/2022 COMPR EHENS JUNE METAB OLIC PANEL (CMP) total protein 7.6 g/dL 6.3 - 8.2 Not Available [facility] [address] [place], [address], 11/27/2022 15:09:02 11/27/19 23 11/27/2022 COMPR EHENS JUNE METAB OLIC PANEL (CMP) ALT 22 U/L 0 - 35 Not Available [facility] [address] [place], [address], 11/27/2022 15:09:02 11/27/19 23 11/27/2022 COMPR EHENS JUNE METAB OLIC PANEL (CMP) BUN/urea 13 mg/dL 7 - 17 Not Available [facility] [address] [place], [address], 11/27/2022 15:09:02 11/27/19 23 11/27/2022 COMPR EHENS JUNE METAB OLIC PANEL (CMP) eGFR 108 mL/mi n/1.7 3m2 >60 *eGFR Refer ence Value s Shagufta l: >60 mL/mi n/1.7 3m2 Abnor mal: < 60 mL/mi n/1.7 3m2 *eGFR Refer ence Value s Shagufta l: >60 mL/mi n/1.7 3m2 Abnor mal: < 60 mL/mi n/1.7 3m2 Not Available [facility] [address] [place], [address], 11/27/2022 15:09:02 11/27/19 23 11/27/2022 COMPR EHENS JUNE METAB OLIC PANEL (CMP) A/G ratio 1.3 (calc ) 1.0 - 2.5 Not Available [facility] [address] [place], [address], 11/27/2022 15:09:02 11/27/19 23 11/27/2022 COMPR EHENS JUNE METAB OLIC PANEL (CMP) globulin 3.3 g/dL_ (calc ) 1.9 - 3.7 Not Available [facility] [address] [place], [address], 11/27/2022 15:09:02 11/27/19 23 11/27/2022 COMPR EHENS JUNE METAB OLIC PANEL (CMP) calcium 9.4 mg/dL 8.9 - 10.7 Not Available [facility] [address] [place], [address], 11/27/2022 15:09:02 11/27/19 23 11/27/2022 COMPR EHENS JUNE METAB OLIC PANEL (CMP) AST 21 U/L 14 - 36 Not Available [facility] [address] [place], [address], 11/27/2022 15:09:02 11/27/19 23 11/27/2022 LIPID PANEL VLDL (calculated) 19 mg/dL (calc ) 0 - 30 Not Available [facility] [address] [place], [address], 11/27/2022 15:09:02 11/27/19 23 11/27/2022 LIPID PANEL direct HDL 68 mg/dL 40 - 60 high Not Available [facility] [address] [place], [place], [address], 11/27/2022 15:09:02 11/27/19 23 11/27/2022 LIPID PANEL triglyceride s 93.0 mg/dL 0.0 - 199.0 Not Available [facility] [address] [place], [address], 11/27/2022 15:09:02 11/27/19 23 11/27/2022 LIPID PANEL cholesterol 216 mg/dL 0 - 200 high Not Available [facility] [address] [place], [address], 11/27/2022 15:09:02 11/27/19 23 11/27/2022 LIPID PANEL chol/DHDL ratio 3 %_(ca lc) 0 - 5 Not Available [facility] [address] [place], [address], 11/27/2022 15:09:02 11/27/19 23 11/27/2022 LIPID PANEL LDL (calculated) 129 mg/dL 0 - 100 high Not Available [facility] [address] [place], [address], 11/27/2022 15:09:02 11/27/19 23 11/29/2022 INTER PRETA [...] cteri stics have been deter mined by [employer] [facility] lashell moreno. It has not been clear ed or appro chetan by the U.S. Food and Drug Admin istra tion. This assay has been valid ated pursu ant to the CLIA regul ation s and is used for clini tammy purpo ses. Not Available [facility] [address] [place], [address], 11/29/2022 18:22:27 11/27/19 23 11/29/2022 HEPAT ITIS [...] rizat ion reque st form. Not Available [facility] [address] [place], [address], 11/29/2022 18:22:27 11/27/19 23 11/29/2022 HEPAT ITIS [...] a test for HCV RNA (test code 00617 ) is sugge sted. For addit ional infor matio n pleas e refer to http: //[facility] catio n.que stdia gnost ics.c om/fa q/FAQ 22v1 (This link is being provi ded for infor matio nal/ educa lorenzo l purpo ses only. ) Not Available [facility] [address], [place], [place], [address], 11/29/2022 18:22:27 11/27/19 23 11/29/2022 FOOD ALLER GY PANEL (REFL ) clam (F207) IgE <0.10 kU/L normal Not Available [facility] [address], [place], [place], [address], 11/29/2022 18:22:28 11/27/19 23 11/29/2022 FOOD ALLER GY PANEL (REFL ) class 0 Not Available [facility] [address] [place], [place], [address], 11/29/2022 18:22:28 11/27/19 23 11/29/2022 FOOD ALLER GY PANEL (REFL ) class 0 Not Available [facility] [address], [place], [place], [address], 11/29/2022 18:22:28 11/27/19 23 11/29/2022 FOOD ALLER GY PANEL (REFL ) class 0 Not Available [facility] [address], [place], [place], [address], 11/29/2022 18:22:28 11/27/19 23 11/29/2022 FOOD ALLER GY PANEL (REFL ) class 0 Not Available [facility] [address], [place], [address], 11/29/2022 18:22:28 11/27/19 23 11/29/2022 FOOD ALLER GY PANEL (REFL ) class 0 Not Available [facility] [address], [place], [address], 11/29/2022 18:22:28 11/27/19 23 11/29/2022 FOOD ALLER GY PANEL (REFL ) class 0 Not Available [facility] [address] [place], [address], 11/29/2022 18:22:28 11/27/19 23 11/29/2022 FOOD ALLER GY PANEL (REFL ) class 0 Not Available [facility] [address] [place], [address], 11/29/2022 18:22:28 11/27/19 23 11/29/2022 FOOD ALLER GY PANEL (REFL ) class 0 Not Available [facility] [address] [place], [address], 11/29/2022 18:22:28 11/27/19 23 11/29/2022 FOOD ALLER GY PANEL (REFL ) class 0 Not Available [facility] [address] [place], [place], [address], 11/29/2022 18:22:28 11/27/19 23 11/29/2022 FOOD ALLER GY PANEL (REFL ) class 0 Not Available [facility] [address] [place], [address], 11/29/2022 18:22:28 11/27/19 23 11/29/2022 FOOD ALLER GY PANEL (REFL ) class 0 Not Available [facility] [address] [place], [address], 11/29/2022 18:22:28 11/27/19 23 11/29/2022 FOOD ALLER GY PANEL (REFL ) class 0 Not Available [facility] [address] [place], [place], [address], 11/29/2022 18:22:28 11/27/19 23 11/29/2022 FOOD ALLER GY PANEL (REFL ) codfish (F3) IgE <0.10 kU/L normal Not Available [facility] [address] [place], [address], 11/29/2022 18:22:28 11/27/19 23 11/29/2022 FOOD ALLER GY PANEL (REFL ) cow's milk (F2) IgE <0.10 kU/L normal Not Available [facility] [address] [place], [address], 11/29/2022 18:22:28 11/27/19 23 11/29/2022 FOOD ALLER GY PANEL (REFL ) egg white (F1) IgE <0.10 kU/L normal Not Available [facility] [address] [place], [address], 11/29/2022 18:22:28 11/27/19 23 11/29/2022 FOOD ALLER GY PANEL (REFL ) maize/corn (F8) IgE <0.10 kU/L normal Not Available [facility] [address] [place], [address], 11/29/2022 18:22:28 11/27/19 23 11/29/2022 FOOD ALLER GY PANEL (REFL ) peanut (F13) IgE <0.10 kU/L normal Not Available [facility] [address] [place], [address], 11/29/2022 18:22:28 11/27/19 23 11/29/2022 FOOD ALLER GY PANEL (REFL ) scallop (F338) IgE <0.10 kU/L normal Not Available [facility] [address], [address], 11/29/2022 18:22:28 11/27/19 23 11/29/2022 FOOD ALLER GY PANEL (REFL ) sesame seed (F10) IgE <0.10 kU/L normal Not Available [facility] [address] [place], [address], 11/29/2022 18:22:28 11/27/1911/29/2022 FOOD ALLER GY PANEL (REFL ) shrimp (F24) IgE <0.10 kU/L normal Not Available [facility] [address] [place], [address], 11/29/2022 18:22:28 11/27/19 23 11/29/2022 FOOD ALLER GY PANEL (REFL ) soybean (F14) IgE <0.10 kU/L normal Not Available [facility] [address] [place], [address], 11/29/2022 18:22:28 11/27/19 23 11/29/2022 FOOD ALLER GY PANEL (REFL ) walnut (F256) IgE <0.10 kU/L normal Not Available [facility] [address] [place], [address], 11/29/2022 18:22:28 11/27/19 23 11/29/2022 FOOD ALLER GY PANEL (REFL ) wheat (F4) IgE <0.10 kU/L normal Not Available [facility] [address] [place], [address], 11/29/2022 18:22:28 12/12/19 23 12/12/2022 SED RATE sed rate 15 mm/HR 0 - 20 Not Available [facility] [address] [place], [address], 12/12/2022 13:44:21 12/12/19 23 12/12/2022 CRP CRP 6.4 mg/L 5.1 - 10.0 Not Available [facility] [address] [place], [address], 12/12/2022 13:44:22 12/12/19 23 12/16/2022 RIVERA SCR, [...] infor reid villagran e refer to http: //[facility] miladis vail.Demetrius stDia gnost ics.c om/fa q/FAQ 177 (This link is being provi ded for infor jose chris/ educmary kay puckett purpo ses only. ) Not Available [facility] [address] [place], [address], 12/16/2022 11:42:03 12/12/19 23 12/16/2022 RIVERA SCR, IFA, W/REF L TITER /AMANDA STEVE/R HEUMA TOID ARTHR ITIS PANEL 1 cyclic citrullinate d peptide (ccp) Ab (IgG) <16 units normal Refer ence Range Negat june: <20 Weak Posit june: 20-39 Moder ate Posit june: 40-59 Stron g Posit june: >59 Not Available [facility] [address] [place], [address], 12/16/2022 11:42:03 12/12/19 23 12/16/2022 RIVERA SCR, [...] d be consi dered . Not Available [facility] [address] [place], [address], 12/16/2022 11:42:03 12/12/19 23 12/16/2022 RIVERA SCR, IFA, W/REF L TITER /AMANDA STEVE/R HEUMA TOID ARTHR ITIS PANEL 1 rheumatoid factor <14 IU/mL <14 normal Not Available [facility] [address] [place], [address], 12/16/2022 11:42:03 12/12/19 23 12/16/2022 ANTIN UCLEA [...] Patte rns (http s://d [email or web address] g/10. 1515/ [facility]- 2017- 0052) Not Available [facility] [address] [place], [address], 12/16/2022 11:42:04 12/12/19 23 12/16/2022 ANTIN UCLEA R ANTIB ODIES TITER AND PATTE RN RIVERA titer 1:40 titer high A low level RIVERA titer may be prese nt in pre-c linic al autoi mmune disea ses and shagufta l indiv idual s. Refer ence Range <1:40 Negat june 1:40- 1:80 Low Antib jaciel Level >1:80 [place] calos Antib jaciel Level Not Available [facility] [address], [place], [address], 12/16/2022 11:42:04 11/27/19 23 11/26/2022 XR, hand, 2 view No observ ation record ed. [email or web address] [facility] [place] [address], [place], [address], 11/27/2022 12:31:00 11/28/19 23 11/26/2022 XR, hand, 2 view No observ ation record ed. [email or web address] [facility] [place] [address], [place], [address], 12/11/2022 15:06:44 Result Notes None recorded. Problems Name Problem SNOMED Code Status Onset Date Resolution Date Notes Provider Name and Address Organization Details Recorded Time Mild intermitten t asthma 236119260 Active 2018 Андрей Gordon MD [address], [address], [facility] 9 15:52:32 Chronic obstructive pulmonary disease 15093620 Active 2018 Андрей Gordon MD [address], [address], [facility] 9 15:52:32 Hormone replacement therapy Active 2019 ELISA ROB NP [address], [address], [facility] 0 09:45:23 Diet education Active [address], [address], [facility] 0 10:54:54 Exercises education, guidance, and counseling Active 2019 LINWOOD VENTURA, MATIAS [address], [address], [facility] 0 10:55:03 Body mass index 25-29 - overweight 636207229 Active 2019 LINWOOD VENTURA, MATIAS [address], [address], [facility] 0 10:55:23 Tobacco dependence 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 [id number] 9107 Active 2019 LINWOOD VENTURA, MATIAS [address], [address], [facility] 0 10:55:39 Edema of lower extremity 938524301 Active 2019 ELISA ROB NP [address], [address], [facility] 0 12:14:09 Pain in left knee Active 2019 EILSA ROB NP [address], [address], [facility] 0 12:14:10 Seasonal allergic rhinitis 258416039 Active 2019 ELISA ROB NP [address], [address], [facility] 0 11:16:17 Problem Notes None recorded. Procedures Surgical History Date Name Laterality Status Provider Name and Address Organization Details Recorded Time 12/12/19 23 venipuncture completed Randee Mcneal [facility] 12/11/2022 15:50:44 04/17/20 22 venipuncture completed Randee Mcneal [facility] 04/17/2022 10:38:39 06/01/20 21 venipuncture completed Agata Liang [facility] 06/01/2021 12:51:43 08/02/20 19 venipuncture completed Jessica Machuca [facility] 08/02/2019 16:32:59 09/27/19 19 Total hysterectomy completed Андрей Gordon MD [address] [place] [address], [id number], [facility] 08/02/2019 15:47:47 09/27/19 19 Appendectomy completed Андрей Gordon MD [address] [place] [address], [id number], [facility] 08/02/2019 15:49:35 08/29/20 18 oophorectomy completed Андрей Gordon MD [address] [place] [address], [phone], [facility] 08/02/2019 15:48:34 02/26/20 08 section completed Андрей Gordon MD [address] [place] [address], [phone], [facility] 08/02/2019 15:51:16 10/11/19 07 section completed Андрей Gordon MD [address] [place] [address], [phone], [facility] 08/02/2019 15:50:31 hysterectomy completed Chandan Bob [facility] 08/02/2019 15:26:47 Imaging Results None recorded. Procedure Notes None recorded. Medical Equipment None Reported. Allergies Allergen ID Allergen Name Allergen Category Reaction Reaction Severity Criticality Documentation Date Start Date Code Code System Note Provider Name and Address Organization Details Recorded Time 04228 Phenergan medicatio n decreased blood pressure Not available Not available 08/02/2019 14762 8 RxNorm Chandan Bob [facility] 9 15:17:50 89748 ibuprofen medicatio n rash Not available Not available 08/02/2019 5640 RxNorm Chandan Bob [facility] 9 15:18:03 71707 acetamino phen / oxycodone medicatio n respirato ry distress Not available Not available 08/02/2019 61611 3 RxNorm Chandan Bob [facility] 9 15:18:21 83065 influenza virus vaccine, specific Not available rash Not available Not available 08/02/2019 Chandan torres [facility] 9 15:33:09 13325 tramadol medicatio n Not available Not available Not available 08/02/2019 62506 RxNorm Chandan torres [facility] 9 15:36:54 12789 Darvocet- N medicatio n Not available Not available Not available 08/02/2019 Chandan torres [facility] 9 15:37:02 26855 aspirin medicatio n Not available Not available Not available 08/02/2019 1191 RxJessee torres [facility] 9 15:37:14 47588 Tylenol with Codeine medicatio n Not available Not available Not available 08/02/2019 97886 6 RxNorm Chandan torres [facility] 9 15:37:29 39824 Product containin g glucocort icoid (product) medicatio n Not available Not available Not available 08/02/2019 53243 6006 [facility]ED [facility] 9 15:37:54 59456 honey bee venom medicatio n Not available Not available Not available 08/02/2019 84688 7 RxNorm Chandan torres [facility] 9 15:38:05 27236 red dye food,medi cation Not available Not available Not available 08/02/2019 Chandan torres [facility] 9 15:38:13 48732 orange juice food,medi cation Not available Not available Not available 08/02/2019 02971 66 ShenaNolenin torres [facility] 9 15:38:26 80255 naproxen medicatio n Not available Not available Not available 08/02/2019 7258 RxNorm Chandan torres [facility] 9 15:38:32 38652 amoxicill in medicatio n Not available Not available Not available 08/02/2019 723 RxNorm Chandan Bob [facility] 9 15:38:39 16691 Product containin g penicilli n (product) medicatio n Not available Not available Not available 08/04/2023 48721 8001 SNOMED Krysten Jose-Mo rris [facility] 3 14:26:04 Medications Name Sig Start Date [...] Updated DateTime 4 167.64 cm 35.5 kg/m2 78227.6 g 16 /min 98.4 [degF] 80 /min 98 % 98 % 122/82 mm[Hg] Elisa Angie [facility] 4 15:20:37 Date Recorded Body weight Body mass index (BMI) Body height Respiratory rate Body temperature Heart rate Oxygen saturation Oxygen saturation in Arterial blood by Pulse oximetry Systolic And Diastolic Provider Name and Address Organization Details Last Updated DateTime 3 63841.6 5 g 32.8 kg/m2 167.64 cm 18 /min 98.6 [degF] 80 /min 100 % 100 % 124/72 mm[Hg] Krysten [facility] 3 14:31:31 Date Recorded Body height Body mass index (BMI) Body weight Respiratory rate Body temperature Heart rate Oxygen saturation Oxygen saturation in Arterial blood by Pulse oximetry Systolic And Diastolic Provider Name and Address Organization Details Last Updated DateTime 3 167.64 cm 32.6 kg/m2 14982.3 6 g 18 /min 98.7 [degF] 78 /min 99 % 99 % 120/86 mm[Hg] Ericka Naylor [facility] 3 09:46:48 Date Recorded Body height Body mass index (BMI) Body weight Body temperature Respiratory rate Oxygen saturation Oxygen saturation in Arterial blood by Pulse oximetry Heart rate Systolic And Diastolic Provider Name and Address Organization Details Last Updated DateTime 3 167.64 cm 34.1 kg/m2 97721.6 9 g 98 [degF] 18 /min 97 % 97 % 98 /min 132/78 mm[Hg] Krysten [facility] 3 14:22:51 Social History Question Answer Notes LastModified by Organizat ion Details LastModified Time Tobacco Smoking Status Former Smoker Pt reports 05/01/22 that she quit smoking 4 months ago. LINWOOD VENTURA, [address], [address], [facility] 05/01/2022 12:55:18 Do You Have An Advance Directive? No Information not available 08/02/2019 Do You Wear A Helmet When Biking? No Information not available 06/01/2021 Are You Blind Or Do You Have Difficulty Seeing? No [email or web address] Information not available 06/01/2021 Is Blood Transfusion Acceptable In An Emergency? No Information not available 06/01/2021 What Is Your Level Of Caffeine Consumption? Occasional Information not available 05/19/2020 How Much Tobacco Do You Chew? None Information not available 08/02/2019 Commercial Sex Work No Information not available 08/02/2019 In The 14 Days Before Symptom Onset, Have You Had Close Contact With A Laboratory-confi rmed COVID-19 While That Case Was Ill? No [email or web address] Information not available 05/19/2020 In The 14 Days Before Symptom Onset, Have You Had Close Contact With A Person Who Is Under Investigation For COVID-19 While That Person Was Ill? No [email or web address] Information not available 05/19/2020 Have You Been To An Area Known To Be High Risk For COVID-19? No [email or web address] Information not available 05/19/2020 Are You Deaf Or Do You Have Serious Difficulty Hearing? No [email or web address] Information not available 06/01/2021 What Type Of Diet Are You Following? REGULAR Information not available 08/02/2019 Which Illicit Or Recreational Drugs Have You Used? Denies [email or web address] Information not available 06/01/2021 Have You Processed Blood Or Body Fluids From An Ebola Virus Disease Patient Without Appropriate PPE? No [email or web address] Information not available 06/01/2021 Education 12 Information no t available 08/02/2019 What Is The Highest Grade Or Level Of School You Have Completed Or The Highest Degree You Have Received? [id number] [email or web address] Information not available 06/01/2021 Are There Any Guns Present In Your Home? Yes Information not available 08/02/2019 Hard Of Hearing Or Deaf In One Or Both Ears? No Information not available 08/02/2019 High Number Of Sexual Partners No Information not available 08/02/2019 History Of Inconsistent/no Condom Use No Information not available 08/02/2019 How Many Years Have You Used Illicit Or Recreational Drugs? 0 [email or web address] Information not available 04/17/2020 International Travel None [...] Information not available 08/02/2019 Have You Had Nursing Home Dialysis? No Information not available 08/02/2019 Have [...] Has Interfered With Your General Activity? 9 [email or web address] Information not available 04/17/2022 What Number (0-10) Best Describes How, During The Past Week, Pain Has Interfered With Your Enjoyment In The Past Week 9 [email or web address] Information not available 04/17/2022 What Number (0-10) Best Describes Your Pain On Average In The Past Week 9 [email or web address] Information not available 04/17/2022 Total PEG Score 27 [email or web address] Informat ion not available 04/17/2022 Sexual Orientation Straight Or Heterosexual Information not available 08/02/2019 Gender Identity Female Informati on not available 08/02/2019 Do You Feel Safe Yes Informat ion not available 08/02/2019 Marital Status Informatio n not available 08/02/2019 What Was The Date Of Your Most Recent Tobacco Screening? 11/06/2023 Information not available 11/06/2023 Mother With HIV? No Informat ion not available 08/02/2019 Do You Use Protection During Sex? No [email or web address] Information not available 06/01/2021 What Is Your Relationship Status? Single [email or web address] Information not available 06/01/2021 Do You Use Your Seat Belt Or Car Seat Routinely? Yes [email or web address] Information not available 06/01/2021 Seat Belts Used [...] How Much Tobacco Do You Smoke? No [email or web address] Information not available 04/17/2022 General Stress Level Low Information not available 08/02/2019 Do You Use Sunscreen Routinely? No Information not available 08/02/2019 How Many Years Have You Smoked Tobacco? 19 Information not available 08/02/2019 Have You Used IV Drugs? No Information not available 08/02/2019 Do You Have Difficulty Walking Or Climbing Stairs? No [email or web address] Information not available 06/01/2021 Sex: Female Functional Status Question Answer Note LastModified by Organizat ion Details LastModified Time Do you or have you ever used smokeless tobacco? Never used smokeless tobacco Information not available 08/02/2019 Are you currently employed? No [email or web address] Information not available 06/01/2021 Do you have transportation difficulties? No [email or web address] Information not available 06/01/2021 Are you able to care for yourself independently? Yes [email or web address] Information not available 06/01/2021 Do you have difficulty dressing, bathing, grooming, or toileting? No [email or web address] Information not available 06/01/2021 Do you or have you ever used e-cigarettes or vape? Never used electronic cigarettes Information not available 08/02/2019 What is your exercise level? Occasional Information not available 08/02/2019 Do you use any illicit or recreational drugs? No [email or web address] Information not available 06/01/2021 Do you or have you ever used any other forms of tobacco or nicotine? No [email or web address] Information not available 06/01/2021 What is your level of alcohol consumption? Occasional [email or web address] Information not available 06/01/2021 Are you able to walk independently without assistance or assistive devices? [email or web address] Information not available 08/02/2019 Do you have difficulty doing errands alone? No [email or web address] Information not available 06/01/2021 What is your occupation? disabled Information not available 08/02/2019 Mental Status Question Answer Note LastModified by Organizat ion Details LastModified Time Do you feel stressed (tense, restless, nervous, or anxious, or unable to sleep at night)? [id number] [email or web address] [address] Information not available 06/01/2021 Do you have difficulty concentrating, remembering or making decisions? [place] [address] Information no t available 06/01/2021 Family History Relationship Description Onset Age of this Age Resolved Age Notes LastModified by Organization Details LastModified Time Mother Family history of malignant neoplasm Not available 2018 15:20:47 Mother Congestive heart failure Not available 2018 15:20:56 Maternal Grandmother Diabetes mellitus Not available 2018 15:21:11 Medical History Condition Response Other N Gout N Blood Diseases N Kidney Stones N Hyperthyroidism N Blood Transfusion N Depression N COPD Y Incontinence N Edema N Endocrine Disorders N Anxiety Disorder Y Muscle, Joint, or Bone Problems N Obesity N Vision or Eye Problems N Arthritis N Auditory Hallucinations N Infertility N Cancer N Varicosities N Stroke N Headaches N Fibromyalgia N Kidney Disease N Abnormal Bleeding N Reproductive System Problems N Ear or Hearing Problems N Hospitalizations Y Learning Disorder N Eating Disorder Y Skin Problems N MRSA exposure N Constipation N Urinary Problems N Brain Injury N Visual Hallucinations N Tuberculosis N AIDS/HIV N Back Problems N Asthma N GERD/Reflux Y Hepatitis N Pulmonary Embolism N Chronic Ear Infections N Chicken Pox Y Autism Spectrum Disorder (ASD) N Thrombophilias N Thyroid Disease N Breast Cancer N Lung Disease N Hypothyroidism N Developmental or Behavioral Disorders N Defects or Inherited Disease N Breast Problem N Difficulty Swallowing N Anesthesia Complications N Deep Vein Thrombosis N Meniere's disease N Hearing Loss N Head Injury/Concussion N Congenital Anomalies N Abnormal Pap Smear N Endometriosis N Bladder or Kidney Problems N High Cholesterol N Liver Disease N Nervous System Disorder N Psychiatric/Mental Health Condition N Schizophrenia N Allergies/Hayfever N Parkinson's Disease N GI Problems N ADD/ADHD N Anemia N Colon Polyps N Heart Attack ([place]) N Diabetes N Ovarian Cancer N Bedwetting [...] Time Hib, unspecified formulation [facility]16[facility] 14:27:42 [facility] 14:27:42 [facility] 14:27:42 [facility]19[facility] 14:27:42 Hep B, unspecified formulation [facility] 14:27:42 Hep B, unspecified formulation 04/18/1999 sanjay GarciaFrancisco null, [facility] 11/26/2022 14:27:42 Hep B, unspecified formulation 06/24/2002 completed Krysten Jose-Francisco null, [facility] 11/26/2022 14:27:42 polio, unspecified formulation 1984 completed Krysten Jose-[facility], [facility] 11/26/2022 14:27:42 polio, unspecified formulation 03/15/1985 completed Krysten Jose-Francisco null, [facility] 11/26/2022 14:27:42 polio, unspecified formulation 06/12/1989 completed Krysten Jose-Francisco [facility], [facility] 11/26/2022 14:27:42 polio, unspecified formulation 08/29/1986 completed Krysten Jose-Francisco [facility] 11/26/2022 14:27:42 DTaP 1984 completed Krysten Jose-Francisco [facility], [facility] 11/26/2022 14:27:42 DTaP 03/15/1985 completed Krysten Jose-Francisco null, [facility] 11/26/2022 14:27:42 DTaP 04/12/1985 completed Krysten Jose-Francisco [facility], [facility] 11/26/2022 14:27:42 DTaP 06/12/1989 completed Krysten Jose-Francisco [facility], [facility] 11/26/2022 14:27:42 DTaP 08/29/1986 completed Krysten Jose-Francisco null, [facility] 11/26/2022 14:27:42 Past Encounters Encounter ID Performer Location Encounter Start Date Encounter Closed Date Diagnosis/Indication Diagnosis SNOMED-CT Code Diagnosis ICD10 Code Diagnosis IMO Codes Diagnosis Note [id number] Андрей Gordon MD [facility] - [place] [address] [place] [address] 08/02/2019 15:06:48 08/04/2019 10:24:17 Chronic obstructive pulmonary disease 30135688 J44.9 Mild inter mittent asthma 083510301 J45.20 Chest pain 87031251 R07. 9 Edema 014643344 R60.9 Fatigue 58750411 R53.83 Tobacco de pendence syndrome 63860181 F17.200 Influenza vaccination declined 187604985 Z28.21 [id number] Андрей Gordon MD [facility] [place] [address] [place] [address] 10/01/2019 08:52:58 10/01/2019 10:19:48 Otitis media 44259379 H66.91 Otitis externa 0363595 H 60.91 Chronic ob structive pulmonary disease 41812911 J44.9 Mild inter mittent asthma 057272120 J45.20 Hormone re placement therapy 488704970 Z79.890 Edema of l ower extremity 932941345 R60.0 [id number] Андрей Gordon MD [facility] - [place] [address] [place] [address] 10/01/2019 10:43:55 10/01/2019 12:39:06 Diet education 17572983 Z71.3 Food- and nutrition- related knowledge deficit r/t a healthful diet as evidenced by diet hx and client/med ical hx. Exercises education, guidance, and counseling 668406109 Z71.82 Excessive sedentary activity time [in the winter] r/t exercise education as evidenced by client/hx. Health-rel ated knowledge deficit r/t exercise as evidenced by client/med ical hx. Body mass index 25-29 - overweight 554715208 Z68.26 Predicted excessive fat intake r/t overweight as evidenced by brief diet hx. Disordered eating pattern r/t overweight as evidenced by diet hx. Overweight as evidenced by BMI of 26.5 (10/01/19) and weight at 131% of reported goal weight. 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 7612914495 4084594 F17.210 Excessive bioactive substance intake r/t tobacco dependence as evidenced by report of cigarette use. Health-rel ated knowledge deficit r/t tobacco dependence as evidenced by client/med ical hx. [id number] Андрей Gordon MD [facility] [place] [address] [place] [address] 04/17/2020 09:48:32 04/17/2020 12:33:33 Edema of lower extremity 146643968 R60.0 Pain in left knee 177038 4522 84196 M25.922 [id number] Андрей Gordon MD [facility] [place] [address] [place] [address] 05/19/2020 10:03:47 05/19/2020 11:48:37 Pain in left knee 2745074091 02141 M25.562 Seasonal a llergic rhinitis 290400260 J30.2 Hormone re placement therapy 373483610 Z79.868 [id number] Андрей Gordon MD [facility] [place] [address] [place] [address] 06/01/2021 10:57:55 06/01/2021 12:28:26 Seasonal allergic rhinitis 659934299 J30.2 Dysuria 82731539 R30.9 Mild inter mittent asthma 576620811 J45.20 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 8425857460 1890246 F17.210 Chronic ob structive pulmonary disease 59611770 J44.9 Body mass index 25-29 - overweight 964495030 Z68.26 Fatigue 07811161 R53.83 Hyperlipid emia screening 130192201 Z13.220 Diabetes m ellitus screening 987258122 Z13.1 Vitamin D below reference range 311096948 E55.9 Diet education 62632222 Z71.3 Exercises education, guidance, and counseling 352453868 Z71.82 Finding of body mass index 058667431 Z68.28 [id number] Johnson Calzada NP [facility] [place] [address] [place] [address] 04/17/2022 09:43:58 04/17/2022 10:55:15 Mild intermittent asthma 413087669 J45.20 Controlled Chronic ob structive pulmonary disease 98388429 J44.9 Hyperlipidemia 42997489 E78.5 Recommend Heart healthy diet includes eating plenty of nutrient-r ich foods f ruits and veggies, whole grains, lean poultry and fish. And it also means avoiding saturated fats, trans fats, and excess sodium and sugar. Pain of left hand 974888 1072 96995 M79.642 Pt has seen specialist Dr. Mcbride and she was told by him to follow up with him when she is able to get ride. [id number] Андрей Gordon MD [facility] [place] [address] [place] [address] 05/01/2022 11:33:11 05/01/2022 16:58:34 Hyperlipidemia 18915076 E78.5 Recent resolution of excessive amounts of [...] l. 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 5313856755 5750509 F17.210 Resolution of excessive bioactive substance intake r/t tobacco dependence as evidenced by report of cigarette cessation for 4 months. Health-rel ated knowledge deficit r/t tobacco dependence as evidenced by client/med ical hx. Diet education 81844429 Z71.3 Food- and nutrition- related knowledge deficit r/t a healthful diet continues as evidenced by diet hx and client/med ical hx. Exercises education, guidance, and counseling 749065795 Z71.82 Resolution of excessive sedentary activity time r/t exercise education as evidenced by client/hx of frequent walking, including post-meal exercise. Health-rel ated knowledge deficit r/t exercise continues as evidenced by client/med ical hx. Obesity 943233264 Z68.30 Recent resolution of excessive carbohydra te [...] by diet hx and client/med ical hx. [id number] Brayan Castellano MD [facility] [place] [address] [place] [address] 11/26/2022 13:52:33 12/13/2022 13:45:42 Intolerance to milk 887070947 K90.49 Instructed to avoid milk in her diet, not only due to possible allergy/in tolerance, but it increases mucous production . Will obtain testing as below Pain of left hand 119402 6916 07826 M79.642 will obtain testing as below Chronic ob structive pulmonary disease 36326787 J44.9 Will obtain testing as this time, Seasonal a llergic rhinitis 617350090 J30.2 Patient presents with allergic rhinitis. Supportive care reviewed: raising HOB, avoiding triggers, taking controller medication s, use of saline nasal spray/humi difier, encourage PO fluids, monitor hydration. RTO as scheduled for next WCC; sooner if any new or concerning symptoms arise. Continue current medication s Long-term drug therapy 454880941 Z79.899 will obtain testing as below Diabetes m ellitus screening 149988029 Z13.1 Hepatitis C screening 41 4296747 Z11.59 HIV screening 461012003 Z11.4 Diet education 98877745 Z71.3 Exercises education, guidance, and counseling 282193100 Z71.82 Finding of body mass index 802815204 Z68.32 [id number] Brayan Castellano MD [facility] [place] [address] [place] [address] 12/11/2022 15:24:58 12/11/2022 16:16:24 Chronic pain 22411565 G89.29 [id number] Pedro Villalta DO [facility] [place] [address] [place] [address] 05/07/2023 09:20:14 05/07/2023 11:12:40 Diet education 70179222 Z71.3 Heart healhty diet Exercises education, guidance, and counseling 383496246 Z71.82 Increase activity as tolerated Body mass index 30+ - obesity 317382667 Z68.32 Heart healthy diet, increase activity as tolerated Hormone re placement therapy 709494682 Z79.890 Medication as below, stable Carpal dane kobi syndrome of left wrist 0054018042 69111 G56.02 Patient is low risk for complicati ons during surgery, ACS calculated risk is 0.7%. Ok to proceed with surgery. [id number] Pedro Villalta, DO [facility] [place] [address] [place] [address] 08/04/2023 14:14:13 08/04/2023 15:07:47 Hormone replacement therapy 719981782 Z79.890 Medication as below, stable Carpal dane kobi syndrome of left wrist 4516357587 07324 G56.02 Patient is low risk for complicati ons during surgery, ACS calculated risk is 0.7%. To have surgery soon Diet education 35165159 Z71.3 Heart healhty diet Exercises education, guidance, and counseling 582117434 Z71.82 Increase activity as tolerated Body mass index 30+ - obesity 706679129 Z68.32 Heart healthy diet, increase activity as tolerated Seasonal a llergic rhinitis 072859835 J30.2 Continue medication as below Chronic ob structive pulmonary disease 73237071 J44.9 Medication as below [id number] Pedro Villalta, DO [facility] [place] [address] [place] [address] 11/06/2023 14:44:04 11/06/2023 15:59:21 Chronic obstructive pulmonary disease 93613212 J44.9 Medication as below Seasonal a llergic rhinitis 270832807 J30.2 Continue medication as below Hormone re placement therapy 438288605 Z79.890 Medication as below, stable Body mass index 30+ - obesity 103426583 Z68.32 Heart healthy diet, increase activity as tolerated Health Concerns Section Related Observation LastModified by Organization Detai ls LastModified Time None Recorded Concern Status LastModified by Organization Details LastModified Time None Recorded Advance Directives Directive N: Payers Insurance Date Sequence Insurance Name Policy Number Policy Bermudez Covered Member ID Bermudez Member ID Guarantor Name 11/03/2023 1 [place] Zenaida Benítez [id number] Zenaida Benítez Notes Date Note Type Note [...] having pain, [facility] x-ray and [facility] 11/27/2022 16:17:20 05/07/2023 text/html ROS as [...] other complaints noted today. Pedro Villalta DO [address] [place] [address], [phone], [facility] 05/07/2023 10:20:52 08/04/2023 text/html ROS as noted in the HPI Zenaida is a 38 y/o female presenting to office for 3 month follow up. Pt states she had a surgery on her Left foot in February but it is still swelling every time she walks. Pt states she is seeing someone in [facility] for her Carpal tunnel. Pt reports having increased sore/scratchy throat but thinks this might be d/t her allergies. No fevers or chills. No other complaints currently Pedro Villalta DO [address] [place] [address], [phone], [facility] 08/04/2023 14:59:45 11/06/2023 text/html ROS as noted in the HPI Zenaida is a 38 y/o female presenting to office for follow up and medication refills. Pt states she is doing well on all medications and will be moving at the end of this month. No new complaints today. No recent illnesses. Pedro Villalta DO [address], [address], [facility] 11/06/2023 15:54:07 OBGyn Episode Ob Episode Information Episode Created Date Number of Fetuses Patient Bloodtype Patient rh Status Prepregnancy Weight lbs Domestic Partner Domestic Partner Phone Father Name Top Flavor Attendant Status 08/02/20 19 1 CLOSED Fetus Data [...] Domestic Partner Domestic Partner Phone Father Name Top Flavor Attendant Status 08/02/20 19 1 CLOSED Fetus Data [...]
--- OUTSIDE RECORDS SUMMARY | 2025-08-01 16:47 | XMS_ITS | Clinical Summary ---
Author Organization Healthcare Address [address] [place] [address] Care Team Providers Care Executive Administrator Name Role Phone Mickey John Ida METCALF Primary Care Provider [phone] Allergies Active Allergy Reactions Criticality Noted Date [...] tablet (20 mg). 4 Active nystatin (Mycostatin) 166814 UNIT/GM powder 2 (two) times a day. [...] 2011 [facility]-Cervical Cancer Screening 2014 [facility]-HPV/Cotest 2014 JEJ-IMZME-01 Vaccine ( - season) 2025 [facility]-Influenza Vaccine [...] patient's age to complete this topic Insurance [employer] MEDICAID Care Teams Executive Administrator Relationship Specialty Start Date End Date John Arevalo APRN [address] [place], [place] [id number] PCP - General 04/21/24
--- OUTSIDE RECORDS SUMMARY | 2025-08-01 16:47 | XMS_ITS | Data Portability ---
Author Organization [facility], L LUIS ANGEL, MAIN OFFICE Address [address] [facility] [place] [address] Care Team Providers Care Bobbin Stripper Name Role Phone SHANNON QUIROS Primary Care Provider [phone] Assessment No assessment recorded. Plan of Treatment Reminders Order Date Submit Date Provider Last Modified By Organization Details Last Modified Time Details Appointments None recorded. Lab pap, LB + reflex to HR HPV if ASC-U 2021 022 [facility] ([facility]), [address], [address], [place], [address], 2 19:11:08 pap, LB + reflex to HR HPV if ASC-U 2019 020 [facility] ([facility]), [address], [address], [place], [address], 0 14:57:40 Referral None recorded. Procedures None recorded. Surgeries None recorded. Imaging None recorded. Medication Orders estradiol [address] [facility] [place], [facility] [address], [address], [place], [address], 2 12:55:23 estradiol 2 mg tablet 2019 [...] completed Shant Manrique MD [address], [place], [address], [facility], [place] 08/03/2020 14:52:24 cholelithotomy completed Shant Manrique MD [address], [place], [address], [facility], [place] 08/03/2020 14:52:49 delivery completed Shant Manrique MD [address], [place], [address], [facility], [place] 08/03/2020 14:53:19 EDD[place] [address], [place], [address], [facility], [place] 08/09/2020 13:07:41 Appy completed Shant Manrique MD [address], [place], [address], [facility], [place] 08/09/2020 13:07:50 Imaging Results None recorded. Procedure [...] Updated DateTime 09/27/2021 170.18 cm 28.5 kg/m2 80467.81 g 136/80 mm[Hg] Shant Manrique MD [address] [place], [address], [facility] 09/28/2021 12:49:12 Date Recorded Body height Body mass index (BMI) Body weight Systolic And Diastolic Provider Name and Address Organization Details Last Updated DateTime 08/03/2020 170.18 cm 26.9 kg/m2 98821.89 g 146/99 mm[Hg] Shant Manrique MD [address] [facility] [place], [address], [facility], [place] 08/03/2020 14:43:52 Social History Question Answer Notes LastModified by Organizat ion Details LastModified Time Tobacco Smoking Status Current Every Day Smoker Shant Manrique MD [address], [place], [address], [facility], [place] 08/03/2020 14:51:43 Do You Have An Advance Directive? No [email or web address] Information not available 08/03/2020 Are You Blind Or Do You Have Difficulty Seeing? No Information not available 09/28/2021 What Is Your Level Of Caffeine Consumption? Occasional Information not available 08/03/2020 Are You Deaf Or Do You Have Serious Difficulty Hearing? No [email or web address] Information not available 09/28/2021 What Type Of Diet Are You Following? REGULAR [email or web address] Information not available 09/28/2021 Which Illicit Or Recreational Drugs Have You Used? Denies [email or web address] Information not available 08/03/2020 Education 12 Information no t available 08/03/2020 What Is The Highest Grade Or Level Of School You Have Completed Or The Highest Degree You Have Received? [id number] [email or web address] Information not available 09/28/2021 Herpes No [email or web address] Information no t available 08/03/2020 PID No [email or web address] Information no t available 08/03/2020 Gonorrhea No [email or web address] Information no t available 08/03/2020 Chlamydia No [email or web address] Information no t available 08/03/2020 Syphilis No [email or web address] Information no t available 08/03/2020 Trichomanosis No [email or web address] Information not available 08/03/2020 Condyloma No [email or web address] Information no t available 08/03/2020 Marital Status Single [email or web address] Informatio n not available 09/28/2021 What Was The Date Of Your Most Recent Tobacco Screening? 09/27/2021 [email or web address] Information not available 09/28/2021 What Is Your Relationship Status? Single Information not available 09/28/2021 Are You Sexually Active? Yes [email or web address] Information not available 08/03/2020 How Much Tobacco Do You Smoke? 0.25 PPD [email or web address] Information not available 08/03/2020 General Stress Level Low [email or web address] Information not available 08/03/2020 How Many Years Have You Smoked Tobacco? 20 [email or web address] Information not available 08/03/2020 Sex: Unknown Functional Status Question Answer Note LastModified by Organizat ion Details LastModified Time What is your level of alcohol consumption? Occasional [email or web address] Information not available 08/03/2020 Do you or have you ever used smokeless tobacco? Never used smokeless tobacco Information not available 08/03/2020 Do you or have you ever used e-cigarettes or vape? Never used electronic cigarettes [email or web address] Information not available 08/03/2020 What is your exercise level? Occasional Information not available 08/03/2020 Mental Status None recorded. Family History Relationship Description Onset Age of this Age Resolved Age Notes LastModified by Organization Details LastModified Time Maternal Grandmother Diabetes mellitus [email or web address] Not available 2019 14:50:24 Maternal Grandmother Family history of malignant neoplasm colon [email or web address] Not available 2019 14:50:56 Maternal Grandmother Hypertensive disorder [email or web address] Not available 2019 14:51:23 Mother Family history of malignant neoplasm lung [email or web address] Not available 2019 14:50:56 Mother Heart disease swann [email or web address] Not available 2019 14:51:15 Father Heart disease [email or web address] Not available 2019 14:51:15 Medical History Condition [...] ICD10 Code Diagnosis IMO Codes Diagnosis Note [id number] Shant Manrique MD MAIN OFFICE [address] [facility] [address] [place], [place] [address] 08/03/2020 14:08:42 08/03/2020 15:38:05 Gynecologic examination [id number] Z01.419 Annual Examinatio n Discussed routine breast care/ screening including monthly SBE, yearly physician exams, and MMG screening when indicated Importance of routine yearly gynecologi c screening exams discussed Pap smear sent for pathologic analysis yes BP's elevated in office today, pt to contact PCP for follow up on this Screening for malignant neoplasm of breast [id number] Z12.39 Screening for malignant neoplasm of vagina 630941159 Z12.72 Hormone re placement therapy 571257274 Z79.890 [id number] Shant Manrique MD MAIN OFFICE [address] [place] [address] 09/27/2021 09:40:47 09/27/2021 11:19:31 Gynecologic examination [id number] Z01.419 Annual Examinatio n Discussed routine breast care/ screening including monthly SBE, yearly physician exams, and MMG screening when indicated Importance of routine yearly gynecologi c screening exams discussed Pap smear sent for pathologic analysis yes Screening for malignant neoplasm of breast [id number] Z12.39 Screening for malignant neoplasm of cervix [id number] Z12.4 Hormone re placement therapy 398889105 Z79.890 Health Concerns Section Related Observation LastModified by Organization Detai ls LastModified Time None Recorded Concern Status LastModified by Organization Details LastModified Time None Recorded Advance Directives Directive N: Payers Insurance Date Sequence Insurance Name Policy Number Policy Bermudez Covered Member ID Bermudez Member ID Guarantor Name 05/08/2023 1 [place] Zenaida Benítez [id number] Zenaida Benítez Notes Date Note Type Note [...] Shant Manrique MD [address] [place], [address], [facility] 08/09/2020 13:08:28 09/27/2021 text/html Annual GYNReport ed [...] smears. Shant Manrique MD [address] [place], [address], [facility] 09/28/2021 12:52:11 OBGyn Episode No OBEpisode recorded.
--- NOTE | 2025-08-01 17:06 | HMH.EDGENADL ---
Discharge Plan Disposition Patient Disposition: Home, Self-Care Prescriptions Prescriptions: No Action cetirizine 1 mg/mL solution PO Patient Comments: TAKE 2 TEASPOONFULS (10ML) BY MOUTH DAILY fluticasone propion-salmeterol [Advair HFA] 115-21 mcg/actuation HFA aerosol inhaler 2 puff inhalation BID 90 Days Qty: 12 3RF ondansetron 4 mg tablet,disintegrating 4 mg PO Q8H PRN (Reason: nausea and vomiting) Qty: 10 0RF fluticasone propionate [Flonase Allergy Relief] 50 mcg/actuation spray,suspension 2 spray intranasal DAILY Qty: 16 2RF Rx Instructions: administer into each nostril daily cholecalciferol (vitamin D3) 125 mcg (5,000 unit) capsule 125 mcg PO DAILY albuterol sulfate 90 mcg/actuation HFA aerosol inhaler 2 puff inhalation Q4-6H PRN (Reason: shortness of breath or wheezing) Qty: 8.5 2RF albuterol sulfate 2.5 mg /3 mL (0.083 %) solution for nebulization 2.5 mg inhalation Q6H PRN (Reason: shortness of breath or wheezing) Qty: 360 2RF estradiol 2 mg tablet 2 mg PO DAILY Qty: 30 2RF nicotine (polacrilex) [Nicorette] 4 mg gum 4 mg buccal Q2H PRN (Reason: nicotine cravings) Qty: 110 2RF ondansetron 4 mg tablet,disintegrating 4 mg PO Q6H PRN (Reason: nausea and vomiting) Qty: 10 0RF Referrals Follow up/Referrals: Clyde Torres MD [Primary Care Provider, Family Practice] - See instructions Activity Restrictions/Add. Instructions Additional Instructions/Restrictions: Wear hard soled shoe for comfort and support. Take Tylenol as needed. Follow-up with your PCP with persistent symptoms. Clinical Impressions Clinical Impression: Contusion of soft tissue Instructions Patient Instructions: Bruises (Alternative Therapy), DI for Contusion Print Language Print Language: Bengali Discharge ED Provider: Courtney Moore General Adult HPI General Chief complaint: Extremity Injury, Lower Stated complaint: AO 08/01 Dropped Cans on top left toe Time Seen by Provider: 08/01/25 16:58 Mode of Arrival: Ambulatory Source of Information: Patient Description of Symptoms (Recalled from ER Triage Doc. by RN): patient was grocery shopping when a large can f beans broke thorugh the bag, landing on her right big toe. she states it hruts and is rating it 10/10 and she is having trouble walking. History of Present Illness HPI narrative: This a 40-year-old female with history of previous left ankle surgery who presents emergency department after dropping a large can of baked beans onto her left great toe. Complains of significant pain on the superior portion of this toe. Has limited range of motion. No numbness or tingling. No fall or hit to the head. Reports allergy to ibuprofen, however states she took Tylenol prior to ED arrival Related Data Home Medications ?Medication ?Instructions ?Recorded ?Confirmed cetirizine 1 mg/mL oral solution mg PO 03/16/24 07/15/25 cholecalciferol (vitamin D3) 125 125 mcg PO DAILY 03/07/25 07/15/25 mcg (5,000 unit) capsule Previous Rx's ?Medication ?Instructions ?Recorded ondansetron 4 mg disintegrating 4 mg PO Q8H PRN nausea and 03/31/25 tablet vomiting #10 tabs albuterol sulfate 2.5 mg/3 mL 2.5 mg (3 mL) inhalation Q6H PRN 05/02/25 (0.083 %) solution for nebulization shortness of breath or wheezing #360 mL albuterol sulfate 90 mcg/actuation 2 puff inhalation Q4-6H PRN 05/02/25 aerosol inhaler shortness of breath or wheezing #8.5 grams estradiol 2 mg tablet 2 mg PO DAILY #30 tabs 06/02/25 nicotine (polacrilex) 4 mg gum 4 mg buccal Q2H PRN nicotine 06/06/25 (Nicorette) cravings #110 ea fluticasone propionate 115 2 puff inhalation BID 90 days #12 07/04/25 mcg-salmeterol 21 mcg/actuation grams HFA inhaler (Advair HFA) fluticasone propionate 50 2 spray intranasal DAILY #16 grams 07/15/25 mcg/actuation nasal spray,suspension (Flonase Allergy Relief) ondansetron 4 mg disintegrating 4 mg PO Q6H PRN nausea and 07/23/25 tablet vomiting #10 tabs Allergies Allergy/AdvReac Type Severity Reaction Status Date / Time Iodinated Contrast Media Allergy Severe angioedema Verified 07/15/25 13:19 aspirin (ASPIRIN) Allergy Unknown Unknown Verified 07/15/25 13:19 allergy reaction codeine (CODEINE) Allergy Unknown Unknown Verified 07/15/25 13:19 allergy reaction orange juice (From ORANGE Allergy Unknown DIARRHEA Verified 07/15/25 13:19 JUICE (FOOD/DRUG)) Penicillins (PENICILLINS) Allergy Unknown SOB/CHEST Verified 07/15/25 13:19 TIGHTNESS propoxyphene (PROPOXYPHENE) Allergy Unknown Unknown Verified 07/15/25 13:19 allergy reaction venom-honey bee (BEE VENOM Allergy Unknown Unknown Verified 07/15/25 13:19 (HONEY BEE)) allergy reaction acetaminophen (From Percocet) Allergy Unknown Verified 07/15/25 13:19 allergy reaction amoxicillin Allergy Unknown Verified 07/15/25 13:19 allergy reaction oxycodone (From Percocet) Allergy Unknown Verified 07/15/25 13:19 allergy reaction ibuprofen (IBUPROFEN) AdvReac Unknown UPSET Verified 07/15/25 13:19 STOMACH promethazine (PROMETHAZINE) AdvReac Unknown MAKES HER Verified 07/15/25 13:19 THROW UP From RED DYE (FOOD/DRUG) Allergy Severe S-SWELLS-OR Uncoded 07/15/25 13:19 AL/THROAT GREEN JELLO Allergy Intermediate Unknown Uncoded 07/15/25 13:19 allergy reaction From ORANGE JUICE (FOOD/DRUG) Allergy Unknown DIARRHEA Uncoded 07/15/25 13:19 PFSH PFS Disclaimer: The information contained in this section may have been updated after the patient was seen, as this information can be updated by other users. Medical History (Updated 08/01/25 @ 17:11 by Courtney Moore DO) Eustachian tube dysfunction Nausea Smoking greater than 20 pack years Dyspnea on exertion Allergic rhinitis Influenza Encounter for cholecystectomy Gastritis Claustrophobia Pancreatitis COPD (chronic obstructive pulmonary disease) Asthma Surgical History History of appendectomy Hx of hand surgery Previous section H/O oophorectomy History of partial hysterectomy History of ankle surgery Family History Mother Cancer lung Father Cancer brain, lung Grandmother , maternal Cancer colon Diabetes Grandfather , paternal Heart attack massive Family/Other Cancer aunt with colon cancer Social History Smoking Status: Current every day smoker tobacco type: cigarettes alcohol intake: never substance use type: denies use current occupational status: other Travel in the last 8 weeks?: None Have you lived/traveled outside US in past 30 days?: No Contact w/someone who lives/traveled outside US past 30 days?: No Exposure to someone with infectious disease in past 14 days?: No Do you have a fever (greater than 100.4 F or 38 C)?: No Have you tested positive for COVID-19?: No Exposed to someone with COVID-19 in past 14 days?: No Do you have a sore throat?: No Do you have a cough?: No Do you have any weakness?: No Do you have any diarrhea?: No Are you experiencing any unusual bleeding?: No Do you have any muscle aches/pain?: No Do you have any abdominal pain?: No Are you experiencing loss of taste or smell?: No Other Medical History Have you received the Flu Vaccine for this season: No Have you received the Pneumonia Vaccine: No ROS Obtained: Yes All systems reviewed & no additional complaints except as documented Physical Exam General General appearance: alert and in no apparent distress Head Head exam: atraumatic Eye Eye exam: Present normal appearance, PERRL and EOMI ENT ENT exam: Present mucous membranes moist Neck Neck exam: Present normal inspection and full ROM; Absent tenderness Chest Chest inspection: Present symmetric chest wall rise; Absent tenderness Respiratory Respiratory exam: Absent respiratory distress, wheezes or accessory muscle use Cardiovascular Cardiovascular exam: Present regular rate and normal rhythm Abdominal Exam Abdominal exam: Present soft; Absent tenderness or guarding Extremities Exam Extremities exam: Present tenderness; Absent full ROM (Limited extension of the left great toe, however extensor mechanism is still intact. No open wound. Mild swelling to the superior aspect of the forefoot) Neurological Exam Neurological exam: Present alert and oriented X3 Psychiatric Psychiatric exam: Present normal affect Skin Skin exam: Present warm and dry Medical Decision Making Medical Records Screening: Per USPSTF and CDC recommendations, given the prevalence of disease in our region, it is our hospital?s policy to screen for HIV and viral Hepatitis for all patients aged 18 and over and those with ongoing risk factors. Gage Inquiry Pt receiving controlled substance: No Gage was queried for this patient: No Vital Signs: 08/01/25 16:40 Temperature 98.9 F Temperature Source Temporal Artery Scan Pulse Rate [Right Radial] 89 Respiratory Rate 18 Blood Pressure [Right Arm] 140/96 H Blood Pressure Mean [Right Arm] 110 Blood Pressure Source [Right Arm] Automatic Cuff Blood Pressure Position [Right Arm] Sitting 02 Sat by Pulse Oximetry 100 Oxygen Delivery Method Room Air Orders (Tests/Meds): ORDERS Category Date Time Status XR foot LT min 3V Stat Exams 08/01/25 16:43 Completed Medical Decision Narrative: In summary, this is a 40y/o female presenting the emergency department for left great toe pain after dropping a heavy object directly on it. Differential diagnosis includes but is not limited to: Fracture, tendon injury, soft tissue injury On my initial assessment, the patient is hemodynamically stable in no acute distress. Physical exam is notable for tenderness to palpation and mild swelling of the affected area. Extensor and flexor mechanism of the affected toe are intact. X-ray personally interpreted with no acute fracture. Radiology reads in agreement Patient was placed in a [place] shoe and discharged with instructions to follow-up with her PCP. She can take 1000 mg of Tylenol every 6 hours as needed. Critical Care Critical Care Time Critical Care Time: No
[2025-08-01 17:14] VITALS: BP 140/75; PULSE 87; RESP 17; TEMP 36.8; O2SAT 100
== END 2025-08-01 17:18 | disposition home or self-care (01) ==
PROVIDERS: Emergency Provider Student in an Organized Health Care Education/Training Program; PCP Family Medicine
DX: S90.112A Contusion of left great toe without damage to nail, initial encounter (principal); W20.8XXA Other cause of strike by thrown, projected or falling object, initial encounter
CPT/HCPCS: 73630; 99283

== ENCOUNTER 2025-09-05 14:59 | Outpatient (CLI) | payer OTHER, SELFPAY ==
--- NOTE | 2025-09-05 15:06 | XR_ITS ---
FINAL REPORT CLINICAL HISTORY: left knee pain FINDINGS: LEFT KNEE 3 views of the left knee were obtained. There is no acute fracture or dislocation. Visualized joint spaces are normally aligned. Soft tissues are unremarkable. IMPRESSION: No acute bony abnormality. Reviewed, Interpreted and Dictated by Puneet Ang MD Transcribed by Aleisha Mathis Authenticated and . [facility]
== END 2025-09-05 23:59 ==
LOC: RAD 15:01
PROVIDERS: PCP Family Medicine; Visit Provider Physician Assistant
DX: M25.562 Pain in left knee (principal)
CPT/HCPCS: 73562